=== PATIENT | female | born 1945 | race Caucasian/White ===

== ENCOUNTER 2016-12-06 13:19 | Inpatient (IN) | payer MEDICARE ==
[2016-12-06] MEDS ORDERED: SODIUM CHLORIDE 0.9% 1,000 ML IV STA (13:50)
[2016-12-06] MEDS ORDERED: SODIUM CHLORIDE 0.9% 500 ML IV STA (13:50)
--- NOTE | 2016-12-06 13:55 | ED ---
General Adult HPI - General Chief complaint: Nausea/Vomiting/Diarrhea Stated complaint: Weakness Time Seen by Provider: 12/06/16 13:35 Source: patient, RN notes reviewed Mode of arrival: wheelchair Limitations: no limitations - History of Present Illness Initial comments: 71-year-old female with history of hypertension and asthma presents for evaluation of generalized weakness. Patient states she is had progressively worsening weakness over the past 3 weeks. Patient also reports decreased appetite. Patient states she had one episode of nausea and vomiting several days ago. She has no nausea over the past several days. No chest pain no shortness of breath. Patient denies fever. Patient denies dysuria. She denies abdominal pain. States she has had a couple episodes of watery diarrhea. Denies any pain complaints. Patient does take care of her who has progressive dementia. She does not believe this is contributing to her poor appetite and weakness. - Related Data Home Medications Medication Instructions Recorded Confirmed Esomeprazole Magnesium [NexIUM] 40 mg PO DAILY 10/12/14 12/06/16 carBAMazepine [TEGretol] 200 mg PO DAILY 10/12/14 12/06/16 Aspirin EC [Ecotrin Low Dose] 81 mg PO DAILY 12/06/16 12/06/16 Diphenoxylate HCl/Atropine 1 tab PO Q8H PRN 12/06/16 12/06/16 [Lomotil 2.5-0.025 mg Tablet] Esomeprazole Magnesium [NexIUM] 40 mg PO DAILY 12/06/16 12/06/16 Losartan/Hydrochlorothiazide 1 tab PO DAILY 12/06/16 12/06/16 [Losartan-Hctz 100-25 mg Tab] Meclizine [Antivert] 25 mg PO Q8H PRN 12/06/16 12/06/16 Montelukast [Singulair] 10 mg PO DAILY 12/06/16 12/06/16 Oxybutynin Xl [Ditropan Xl] 5 mg PO DAILY 12/06/16 12/06/16 carBAMazepine [TEGretol] 400 mg PO HS 12/06/16 12/06/16 Allergies Allergy/AdvReac Type Severity Reaction Status Date / Time No Known Allergies Allergy Verified 12/06/16 14:23 Review of Systems ROS Statement: Those systems with pertinent positive or pertinent negative responses have been documented in the HPI. ROS Other: All systems not noted in ROS Statement are negative. Past Medical History Past Medical History: Asthma, GERD/Reflux, Osteoarthritis (OA) Additional Past Medical History / Comment(s): collitis rls incontinence History of Any Multi-Drug Resistant Organisms: None Reported Past Surgical History: Hysterectomy Past Psychological History: No Psychological Hx Reported Smoking Status: Former smoker Past Alcohol Use History: Rare Past Drug Use History: None Reported General Exam Limitations: no limitations General appearance: alert, in no apparent distress Head exam: Present: atraumatic, normocephalic Eye exam: Present: normal appearance, PERRL ENT exam: Present: mucous membranes moist Neck exam: Present: normal inspection. Absent: tenderness, meningismus Respiratory exam: Present: normal lung sounds bilaterally. Absent: respiratory distress, wheezes, rales Cardiovascular Exam: Present: regular rate, normal rhythm GI/Abdominal exam: Present: soft. Absent: distended, tenderness, guarding, rebound Extremities exam: Present: normal inspection, normal capillary refill. Absent: pedal edema Neurological exam: Present: alert, oriented X3. Absent: motor sensory deficit Psychiatric exam: Present: normal affect, depressed Skin exam: Present: warm, dry, intact, normal color. Absent: cyanosis, diaphoretic Course Vital Signs 12/06/16 12/06/16 12/06/16 13:23 14:43 15:34 Temperature 98.2 F Pulse Rate 71 74 71 Respiratory 20 12 16 Rate Blood Pressure 168/77 143/77 135/63 O2 Sat by Pulse 97 97 96 Oximetry 12/06/16 16:34 Temperature Pulse Rate 72 Respiratory 16 Rate Blood Pressure 159/70 O2 Sat by Pulse 96 Oximetry EKG Findings - EKG Comments: EKG Findings:: Normal sinus rhythm, ventricular rate 84, MO interval 176, QRS duration 78, QTC 458, T-wave inversion in the lateral precordium, this is unchanged compared to previous Medical Decision Making - Medical Decision Making 71-year-old female presenting with 2 weeks of decreased appetite and generalized weakness. Patient also had some mild nausea with one episode of vomiting. Laboratory studies reveal normal white blood cell count 5.7, hemoglobin 12.4 which is stable, potassium 3.0 which is replaced. AST and ALT are both elevated along with mild elevation in alkaline phosphatase. Ultrasound is obtained, this to show a 3 cm stone which is nonobstructing, no signs of acute cholecystitis. Patient receives IV hydration. Hepatitis panel will be obtained. Patient will be admitted for further evaluation and treatment. GI is placed on consult. Urinalysis is positive for 24 white blood cell count, urine cultures obtained, no treatment at this time as patient is asymptomatic. Diagnosis: Hepatitis, transaminitis, dehydration, hypokalemia - Lab Data Result diagrams: 12/06/16 14:09 12/06/16 14:09 Lab Results 12/06/16 12/06/16 12/06/16 Range/Units 14:09 14:09 14:09 WBC 9.7 (3.8-10.6) k/uL RBC 4.24 (3.80-5.40) m/uL Hgb 12.4 (11.4-16.0) gm/dL Hct 36.8 (34.0-46.0) % MCV 86.7 (80.0-100.0) fL MCH 29.3 (25.0-35.0) pg MCHC 33.8 (31.0-37.0) g/dL RDW 13.5 (11.5-15.5) % Plt Count 271 (150-450) k/uL Neutrophils % 85 % Lymphocytes % 9 % Monocytes % 5 % Eosinophils % 0 % Basophils % 0 % Neutrophils # 8.2 H (1.3-7.7) k/uL Lymphocytes # 0.8 L (1.0-4.8) k/uL Monocytes # 0.5 (0-1.0) k/uL Eosinophils # 0.0 (0-0.7) k/uL Basophils # 0.0 (0-0.2) k/uL PT (9.0-12.0) sec INR (<1.2) APTT (22.0-30.0) sec Sodium 133 L (137-145) mmol/L Potassium 3.0 L* (3.5-5.1) mmol/L Chloride 92 L (98-107) mmol/L Carbon Dioxide 23 (22-30) mmol/L Anion Gap 18 mmol/L BUN 41 H (7-17) mg/dL Creatinine 0.89 (0.52-1.04) mg/dL Est GFR (MDRD) Af Amer >60 (>60 ml/min/1.73 sqM) Est GFR (MDRD) Non-Af >60 (>60 ml/min/1.73 sqM) Glucose 104 H (74-99) mg/dL Plasma Lactic Acid Jose (0.7-2.0) mmol/L Calcium 9.1 (8.4-10.2) mg/dL Magnesium 2.5 H (1.6-2.3) mg/dL Total Bilirubin 0.7 (0.2-1.3) mg/dL AST 1113 H (14-36) U/L ALT 715 H (9-52) U/L Alkaline Phosphatase 160 H (38-126) U/L Total Creatine Kinase 70 (30-135) U/L CK-MB (CK-2) 1.8 (0.0-2.4) ng/mL CK-MB (CK-2) Rel Index 2.6 Troponin I <0.012 (0.000-0.034) ng/mL NT-Pro-B Natriuret Pep pg/mL Total Protein 7.1 (6.3-8.2) g/dL Albumin 3.8 (3.5-5.0) g/dL TSH 1.270 (0.465-4.680) mIU/L Urine Color Urine Appearance (Clear) Urine pH (5.0-8.0) Ur Specific [place] (1.001-1.035) Urine Protein (Negative) Urine Glucose (UA) (Negative) Urine Ketones (Negative) Urine Blood (Negative) Urine Nitrite (Negative) Urine Bilirubin (Negative) Urine Urobilinogen (<2.0) mg/dL Ur Leukocyte Esterase (Negative) Urine RBC (0-5) /hpf Urine WBC (0-5) /hpf Ur Squamous Epith Cells (0-4) /hpf Hyaline Casts (0-2) /lpf Urine Mucus (None) /hpf 12/06/16 12/06/16 12/06/16 Range/Units 14:09 14:09 14:09 WBC (3.8-10.6) k/uL RBC (3.80-5.40) m/uL Hgb (11.4-16.0) gm/dL Hct (34.0-46.0) % MCV (80.0-100.0) fL MCH (25.0-35.0) pg MCHC (31.0-37.0) g/dL RDW (11.5-15.5) % Plt Count (150-450) k/uL Neutrophils % % Lymphocytes % % Monocytes % % Eosinophils % % Basophils % % Neutrophils # (1.3-7.7) k/uL Lymphocytes # (1.0-4.8) k/uL Monocytes # (0-1.0) k/uL Eosinophils # (0-0.7) k/uL Basophils # (0-0.2) k/uL PT 11.8 (9.0-12.0) sec INR 1.2 H (<1.2) APTT 25.0 (22.0-30.0) sec Sodium (137-145) mmol/L Potassium (3.5-5.1) mmol/L Chloride (98-107) mmol/L Carbon Dioxide (22-30) mmol/L Anion Gap mmol/L BUN (7-17) mg/dL Creatinine (0.52-1.04) mg/dL Est GFR (MDRD) Af Amer (>60 ml/min/1.73 sqM) Est GFR (MDRD) Non-Af (>60 ml/min/1.73 sqM) Glucose (74-99) mg/dL Plasma Lactic Acid Jose 1.3 (0.7-2.0) mmol/L Calcium (8.4-10.2) mg/dL Magnesium (1.6-2.3) mg/dL Total Bilirubin (0.2-1.3) mg/dL AST (14-36) U/L ALT (9-52) U/L Alkaline Phosphatase (38-126) U/L Total Creatine Kinase (30-135) U/L CK-MB (CK-2) (0.0-2.4) ng/mL CK-MB (CK-2) Rel Index Troponin I (0.000-0.034) ng/mL NT-Pro-B Natriuret Pep 1180 pg/mL Total Protein (6.3-8.2) g/dL Albumin (3.5-5.0) g/dL TSH (0.465-4.680) mIU/L Urine Color Urine Appearance (Clear) Urine pH (5.0-8.0) Ur Specific [place] (1.001-1.035) Urine Protein (Negative) Urine Glucose (UA) (Negative) Urine Ketones (Negative) Urine Blood (Negative) Urine Nitrite (Negative) Urine Bilirubin (Negative) Urine Urobilinogen (<2.0) mg/dL Ur Leukocyte Esterase (Negative) Urine RBC (0-5) /hpf Urine WBC (0-5) /hpf Ur Squamous Epith Cells (0-4) /hpf Hyaline Casts (0-2) /lpf Urine Mucus (None) /hpf 12/06/16 Range/Units 14:20 WBC (3.8-10.6) k/uL RBC (3.80-5.40) m/uL Hgb (11.4-16.0) gm/dL Hct (34.0-46.0) % MCV (80.0-100.0) fL MCH (25.0-35.0) pg MCHC (31.0-37.0) g/dL RDW (11.5-15.5) % Plt Count (150-450) k/uL Neutrophils % % Lymphocytes % % Monocytes % % Eosinophils % % Basophils % % Neutrophils # (1.3-7.7) k/uL Lymphocytes # (1.0-4.8) k/uL Monocytes # (0-1.0) k/uL Eosinophils # (0-0.7) k/uL Basophils # (0-0.2) k/uL PT (9.0-12.0) sec INR (<1.2) APTT (22.0-30.0) sec Sodium (137-145) mmol/L Potassium (3.5-5.1) mmol/L Chloride (98-107) mmol/L Carbon Dioxide (22-30) mmol/L Anion Gap mmol/L BUN (7-17) mg/dL Creatinine (0.52-1.04) mg/dL Est GFR (MDRD) Af Amer (>60 ml/min/1.73 sqM) Est GFR (MDRD) Non-Af (>60 ml/min/1.73 sqM) Glucose (74-99) mg/dL Plasma Lactic Acid Jose (0.7-2.0) mmol/L Calcium (8.4-10.2) mg/dL Magnesium (1.6-2.3) mg/dL Total Bilirubin (0.2-1.3) mg/dL AST (14-36) U/L ALT (9-52) U/L Alkaline Phosphatase (38-126) U/L Total Creatine Kinase (30-135) U/L CK-MB (CK-2) (0.0-2.4) ng/mL CK-MB (CK-2) Rel Index Troponin I (0.000-0.034) ng/mL NT-Pro-B Natriuret Pep pg/mL Total Protein (6.3-8.2) g/dL Albumin (3.5-5.0) g/dL TSH (0.465-4.680) mIU/L Urine Color Yellow Urine Appearance Clear (Clear) Urine pH 6.0 (5.0-8.0) Ur Specific [place] 1.016 (1.001-1.035) Urine Protein 1+ H (Negative) Urine Glucose (UA) Negative (Negative) Urine Ketones 2+ H (Negative) Urine Blood Trace H (Negative) Urine Nitrite Negative (Negative) Urine Bilirubin Negative (Negative) Urine Urobilinogen <2.0 (<2.0) mg/dL Ur Leukocyte Esterase Moderate H (Negative) Urine RBC 1 (0-5) /hpf Urine WBC 24 H (0-5) /hpf Ur Squamous Epith Cells <1 (0-4) /hpf Hyaline Casts 7 H (0-2) /lpf Urine Mucus Rare H (None) /hpf Disposition Clinical Impression: Hepatitis, Hypokalemia, Dehydration Disposition: ADMITTED IP TO THIS [facility] Condition: Good Decision to Admit Reason: Admit from [facility] Decision Date: 12/06/16 Decision Time: 16:05
[2016-12-06 14:27] LABS: Basophils % (A) 0 %; CH 30.6; CHCM 35.4; Eosinophils % (A) 0 %; HCT 36.8 % (34.0-46.0); HDW 2.62; HGB 12.4 gm/dL (11.4-16.0); Luc # (Auto) 0.17; Luc % (Auto) 2; Lymphocytes # (A) 0.8 k/uL (1.0-4.8); Lymphocytes % (A) 9 %; MCH 29.3 pg (25.0-35.0); MCHC 33.8 g/dL (31.0-37.0); MCV 86.7 fL (80.0-100.0); Mean Platelet Volume 7.9; Monocytes # (A) 0.5 k/uL (0-1.0); Monocytes % (A) 5 %; Neutrophils # (A) 8.2 k/uL (1.3-7.7); Neutrophils % (A) 85 %; RBC 4.24 m/uL (3.80-5.40); RDW 13.5 % (11.5-15.5); WBC 9.7 k/uL (3.8-10.6); WBC (Perox) 9.73
[2016-12-06 14:35] LABS: INR 1.2 (<1.2); Prothrombin Time 11.8 sec (9.0-12.0)
[2016-12-06 14:39] LABS: ALT 715 U/L (9-52); Alkaline Phosphatase 160 U/L (38-126); Anion Gap 18 mmol/L; Blood Urea Nitrogen 41 mg/dL (7-17); Calcium 9.1 mg/dL (8.4-10.2); Carbon Dioxide 23 mmol/L (22-30); Chloride 92 mmol/L (98-107); Glucose 104 mg/dL (74-99); Magnesium 2.5 mg/dL (1.6-2.3); Non-African American GFR(MDRD) >60 (>60 ml/min/1.73 sqM); Sodium 133 mmol/L (137-145); Total Bilirubin 0.7 mg/dL (0.2-1.3); Total Protein 7.1 g/dL (6.3-8.2)
[2016-12-06 14:48] LABS: Appearance,Urine Clear (Clear); Bilirubin,Urine Negative (Negative); Glucose,Urine (UA) Negative (Negative); Ketones,Urine 2+ (Negative); Leukocyte Esterase,Urine Moderate (Negative); Mucus,Urine Rare /hpf; Nitrite,Urine Negative (Negative); Particle Count 7427; Protein,Urine 1+ (Negative); RBC,Urine 1 /hpf (0-5); Specific Gravity,Urine 1.016 (1.001-1.035); Squamous Epithelial Cell,Urine <1 /hpf (0-4); UA Billing (MACRO vs. MICRO) MICRO; Urobilinogen,Urine <2.0 mg/dL (<2.0); WBC,Urine 24 /hpf (0-5)
[2016-12-06 14:48] LABS: Creatine Kinase 70 U/L (30-135)
[2016-12-06 15:01] LABS: Creatine Kinase MB 1.8 ng/mL (0.0-2.4); Troponin I <0.012 ng/mL (0.000-0.034)
--- NOTE | 2016-12-06 15:12 | XR ---
EXAMINATION TYPE: XR chest 2V DATE OF EXAM: 12/06/2016 COMPARISON: 10/12/2014 HISTORY: Weakness with history of asthma TECHNIQUE: Frontal and lateral views of the chest are obtained. FINDINGS: There is no focal air space opacity, pleural effusion, or pneumothorax seen. The cardiac silhouette size is within normal limits. The osseous structures are intact. Minimal degenerative ch anges of the thoracic spine are noted. IMPRESSION: No acute cardiopulmonary process.
[2016-12-06 15:20] LABS: AST 1113 U/L (14-36)
[2016-12-06] MEDS: POTASSIUM CHLORIDE 10 MEQ, LIDOCAINE 2% INJ 10 MG in SODIUM CHLORIDE 0.9% 100 ML IVPB SCH ×4 (16:29→22:16)
--- NOTE | 2016-12-06 16:39 | US ---
EXAMINATION TYPE: US abdomen limited DATE OF EXAM: 12/06/2016 COMPARISON: 10/27/2014 CLINICAL HISTORY: Pain. EXAM MEASUREMENTS: Liver Length: 10.5 cm Gallbladder Wall: 0.3 cm CBD: 0.5 cm Right Kidney: 12.5 x 4.5 x 5.5 cm Technically difficult study due to poor patient cooperation Pancreas: Tail obscured by overlying bowel gas Liver: wnl Gallbladder: large stone within gallbladder Evidence for sonographic Suresh's sign: no CBD: wnl Right Kidney: No hydronephrosis or masses seen IMPRESSION: There is shadowing in the gallbladder consistent with a large 3 cm gallstone. No dilated ducts. This appears unchanged compared to old ultrasound exam of 10/27/2014.
[2016-12-06] MEDS ORDERED: ONDANSETRON 4 MG/2 ML VIAL IVP PRN (16:50)
[2016-12-06] MEDS ORDERED: NALOXONE 0.4 MG/ML 1 ML VIAL IV PRN (16:50)
[2016-12-06] MEDS ORDERED: MECLIZINE 25 MG TAB PO PRN (21:35)
[2016-12-07] MEDS: LOSARTAN-HCTZ 50-12.5 MG 1 EACH TAB PO SCH (08:06)
[2016-12-07] MEDS: PANTOPRAZOLE 40 MG TABLET PO SCH (08:07)
[2016-12-07] MEDS: OXYBUTYNIN XL 5 MG TAB.ER.24 PO SCH (08:07)
[2016-12-07] MEDS: ASPIRIN 81 MG PO SCH (08:07)
[2016-12-07] MEDS: MONTELUKAST 10 MG TAB PO SCH (08:07)
[2016-12-07 08:15] LABS: Basophils % (A) 0 %; CH 29.1; CHCM 33.7; Eosinophils % (A) 1 %; HCT 33.9 % (34.0-46.0); HDW 2.68; HGB 11.2 gm/dL (11.4-16.0); Luc # (Auto) 0.13; Luc % (Auto) 2; Lymphocytes # (A) 0.9 k/uL (1.0-4.8); Lymphocytes % (A) 13 %; MCH 28.5 pg (25.0-35.0); MCHC 32.9 g/dL (31.0-37.0); MCV 86.8 fL (80.0-100.0); Monocytes # (A) 0.4 k/uL (0-1.0); Monocytes % (A) 5 %; Neutrophils # (A) 5.9 k/uL (1.3-7.7); Neutrophils % (A) 80 %; RBC 3.91 m/uL (3.80-5.40); WBC 7.4 k/uL (3.8-10.6)
[2016-12-07 08:29] LABS: Anion Gap 12 mmol/L; Blood Urea Nitrogen 22 mg/dL (7-17); Calcium 8.5 mg/dL (8.4-10.2); Carbon Dioxide 23 mmol/L (22-30); Chloride 101 mmol/L (98-107); Glucose 90 mg/dL (74-99); Non-African American GFR(MDRD) >60 (>60 ml/min/1.73 sqM); Potassium 3.4 mmol/L (3.5-5.1); Sodium 136 mmol/L (137-145); Total Bilirubin 0.5 mg/dL (0.2-1.3); Total Protein 5.7 g/dL (6.3-8.2)
[2016-12-07 08:34] LABS: AST 491 U/L (14-36); Alkaline Phosphatase 113 U/L (38-126)
[2016-12-07 08:36] LABS: ALT 471 U/L (9-52)
--- NOTE | 2016-12-07 12:19 | P.HPIM ---
History of Present Illness Chief Complaint: Weakness and lack of appetite This is a 71-year-old female who presented to the hospital with weakness and lack of appetite. Patient said that for the past week she has been very busy taking care of her demented . Patient said that she was very overwhelmed and she does not have any help at home. She said that she was disimpacted and was unable to take care of her own self. She noted decreased appetite for the past few days. She denies being depressed or sad. She said that she did not eat that much for the past several days. She decided to come to the emergency room for further evaluation. She was noted to be significantly dehydrated and was noted to have evidence of acute hepatitis. The exact etiology was unclear. Patient denies any abdominal pain. She is currently admitted to the hospital for IV fluid hydration and further evaluation. Gastroenterology consulted. Review of Systems Review of system: 14 points review of systems were obtained and were negative except to what were mentioned in the HPI. Past Medical History Past Medical History: Asthma, GERD/Reflux, Osteoarthritis (OA) Additional Past Medical History / Comment(s): collitis rls incontinence History of Any Multi-Drug Resistant Organisms: None Reported Past Surgical History: Hysterectomy Past Psychological History: No Psychological Hx Reported Smoking Status: Former smoker Past Alcohol Use History: Rare Past Drug Use History: None Reported Medications and Allergies Home Medications Medication Instructions Recorded Confirmed Type Esomeprazole Magnesium [NexIUM] 40 mg PO DAILY 10/12/14 12/06/16 History carBAMazepine [TEGretol] 200 mg PO DAILY 10/12/14 12/06/16 History Aspirin EC [Ecotrin Low Dose] 81 mg PO DAILY 12/06/16 12/06/16 History Diphenoxylate HCl/Atropine 1 tab PO Q8H PRN 12/06/16 12/06/16 History [Lomotil 2.5-0.025 mg Tablet] Esomeprazole Magnesium [NexIUM] 40 mg PO DAILY 12/06/16 12/06/16 History Losartan/Hydrochlorothiazide 1 tab PO DAILY 12/06/16 12/06/16 History [Losartan-Hctz 100-25 mg Tab] Meclizine [Antivert] 25 mg PO Q8H PRN 12/06/16 12/06/16 History Montelukast [Singulair] 10 mg PO DAILY 12/06/16 12/06/16 History Oxybutynin Xl [Ditropan Xl] 5 mg PO DAILY 12/06/16 12/06/16 History carBAMazepine [TEGretol] 400 mg PO HS 12/06/16 12/06/16 History Allergies Allergy/AdvReac Type Severity Reaction Status Date / Time No Known Allergies Allergy Verified 12/06/16 14:23 Physical Exam Vitals: Vital Signs Temp Pulse Pulse Resp BP BP Pulse Ox 12/07/16 11:51 97 12/07/16 08:00 68 16 12/07/16 07:00 97.2 F L 68 16 116/67 97 12/06/16 23:00 97.8 F 78 14 135/60 98 12/06/16 17:41 97.2 F L 79 20 146/81 98 12/06/16 17:34 98.2 F 72 16 159/70 96 12/06/16 17:24 72 16 159/70 96 12/06/16 16:34 72 16 159/70 96 12/06/16 15:34 71 16 135/63 96 12/06/16 14:43 74 12 143/77 97 12/06/16 13:23 98.2 F 71 20 168/77 97 Intake and Output 12/06/16 12/07/16 12/07/16 22:59 06:59 14:59 Other: Voiding Method Toilet Toilet # Voids 2 3 # Bowel Movements 1 General: The patient is awake and alert, in no distress Eye: there is normal conjunctiva bilaterally. Neck: The neck is supple, there is no JVD. Cardiovascular: Normal S1-S2, no S3-S4, no murmurs. Respiratory: Lungs clear to auscultation bilaterally Gastrointestinal: Abdomen is soft, nontender Musculoskeletal: There is no pedal edema. Neurological:. Speech is normal. Skin: Skin is warm and dry Results CBC & Chem 7: 12/07/16 07:42 12/07/16 07:42 Labs: Abnormal Lab Results - Last 24 Hours (Table) 12/06/16 12/06/16 12/06/16 Range/Units 14:09 14:09 14:09 Hgb (11.4-16.0) gm/dL Hct (34.0-46.0) % Neutrophils # 8.2 H (1.3-7.7) k/uL Lymphocytes # 0.8 L (1.0-4.8) k/uL INR 1.2 H (<1.2) Sodium 133 L (137-145) mmol/L Potassium 3.0 L* (3.5-5.1) mmol/L Chloride 92 L (98-107) mmol/L BUN 41 H (7-17) mg/dL Glucose 104 H (74-99) mg/dL Magnesium 2.5 H (1.6-2.3) mg/dL AST 1113 H (14-36) U/L ALT 715 H (9-52) U/L Alkaline Phosphatase 160 H (38-126) U/L Total Protein (6.3-8.2) g/dL Albumin (3.5-5.0) g/dL Urine Protein (Negative) Urine Ketones (Negative) Urine Blood (Negative) Ur Leukocyte Esterase (Negative) Urine WBC (0-5) /hpf Hyaline Casts (0-2) /lpf Urine Mucus (None) /hpf 12/06/16 12/07/16 12/07/16 Range/Units 14:20 07:42 07:42 Hgb 11.2 L (11.4-16.0) gm/dL Hct 33.9 L (34.0-46.0) % Neutrophils # (1.3-7.7) k/uL Lymphocytes # 0.9 L (1.0-4.8) k/uL INR (<1.2) Sodium 136 L (137-145) mmol/L Potassium 3.4 L (3.5-5.1) mmol/L Chloride (98-107) mmol/L BUN 22 H (7-17) mg/dL Glucose (74-99) mg/dL Magnesium (1.6-2.3) mg/dL AST 491 H (14-36) U/L ALT 471 H (9-52) U/L Alkaline Phosphatase (38-126) U/L Total Protein 5.7 L (6.3-8.2) g/dL Albumin 3.0 L (3.5-5.0) g/dL Urine Protein 1+ H (Negative) Urine Ketones 2+ H (Negative) Urine Blood Trace H (Negative) Ur Leukocyte Esterase Moderate H (Negative) Urine WBC 24 H (0-5) /hpf Hyaline Casts 7 H (0-2) /lpf Urine Mucus Rare H (None) /hpf Microbiology - Last 24 Hours (Table) 12/06/16 14:20 Urine Culture - Preliminary Urine,Voided Thrombosis Risk Factor Assmnt - Choose All That Apply Each Risk Factor Represents 2 Points: Age 61-74 years Thrombosis Risk Factor Assessment Total Risk Factor Score: 2 Thrombosis Risk Factor Assessment Level: Low Risk Assessment and Plan Plan: 1. Acute hepatitis, exact etiology unclear. Hepatitis panel pending. Liver function tests improving. Gastroenterology consulted. Ultrasound of the abdomen showed a 3 cm gallstone there is a symptomatic. I will consult general surgery for an opinion. Tegretol level was subtherapeutic and no toxicity suspected. 2. History of seizure disorder on Tegretol 3. Dehydration with intravascular depletion, continue IV fluid hydration. 4. Uncomplicated urinary tract infection on IV ceftriaxone awaiting urine culture 5. Essential hypertension: Blood pressure well controlled
[2016-12-07 13:26] VITALS: BMI 25.5
--- NOTE | 2016-12-07 13:36 | CONS ---
CONSULTATION DATE OF DICTATION: 12/07/2016 REASON FOR CONSULTATION: Elevated LFTs. HISTORY OF PRESENT ILLNESS: The patient is a 71-year-old pleasant white female who came into the emergency room with generalized weakness, not able to eat; progressive weakness for the last few weeks' duration. The patient says that she has been caring for her , who has severe Alzheimer's, and has become extremely tired doing this job. However, in the last few weeks she had a somewhat decreased appetite, to an extent that she stopped taking all her medication and developed progressive weakness. She had 1 episode of nausea and vomiting. She denies any abdominal pain, reports no rectal bleeding or melena. She felt extremely weak. She told her daughter to take her to the emergency room and hence came here yesterday. This morning she states she is feeling better. She once again denies any abdominal pain. The reason we are consulted is because of acute elevation of serum transaminases. The patient denies any history of chronic liver disease, denies taking any new medications recently; in fact, she stopped all her medications about 3 weeks ago. PAST MEDICAL HISTORY: 1. Hypertension. 2. Asthma. 3. Osteoarthritis. 4. GERD. PAST SURGICAL HISTORY: Hysterectomy. MEDICATIONS AT HOME: Medications at home include: 1. Tegretol. 2. Singulair. 3. Antivert. 4. Losartan. 5. Nexium. 6. Aspirin. ALLERGIES: NONE. SOCIAL HISTORY: No smoking. No alcohol use. FAMILY HISTORY: Unremarkable. REVIEW OF SYSTEMS: CARDIOPULMONARY: No chest pain, shortness of breath. GENITOURINARY: No dysuria, hematuria. MUSCULOSKELETAL: Unremarkable. SKIN: Unremarkable. ENDOCRINE: Unremarkable. PSYCHIATRY: Unremarkable. NEUROLOGY: Unremarkable. ENT/VISION: Unremarkable. CONSTITUTIONAL: No recent weight loss. No fever, chills, night sweats. PHYSICAL EXAMINATION: Blood pressure 146/81, pulse rate 79, temperature 97.2. HEENT EXAMINATION: Unremarkable. Conjunctivae are pink, sclerae anicteric. Oral cavity with no lesions. NECK: No JVD or lymph node enlargement. Chest was clear to auscultation. HEART: Regular rate and rhythm. ABDOMEN: Soft. Bowel sounds are positive. Non-tender, non-distended. EXTREMITIES: No pedal edema. SKIN: No rashes. NEURO: Alert and oriented x3. No focal deficits. LABS: Labs at the time of admission to the hospital: WBC 9.7, hemoglobin 12.4. AST was 1113. ALT was 715. Total bilirubin 0.7. Alkaline phosphatase 160. Today the AST and ALT have significantly improved to 491 and 471, respectively. Total bilirubin and alkaline phosphatase are within normal limits. Lipase is normal. IMAGING: Ultrasound of the abdomen done yesterday in the emergency room did show evidence of gallstones but no biliary ductal dilatation. IMPRESSION: This is a lady who presents to the hospital with progressive weakness, fatigue, not feeling well for the last 3 weeks' duration and stopped taking all her medications around the same time, admitted to the hospital with dehydration; however, she was noted to have elevated serum transaminases in the range of 1000s yesterday but has significantly improved today. Ultrasound did show evidence of gallstones but no biliary ductal dilation. At this time, since the patient does not have any abdominal symptoms, it is unlikely that we are dealing with an acute cholecystitis or biliary pathology. The possibility of acute hepatitis from other etiologies, especially infection, needs to be considered, given her overall decreased intake and poor appetite. RECOMMENDATIONS: 1. I will obtain hepatitis viral serologies for A, B and C as well as . 2. Repeat serum transaminases tomorrow morning. 3. No indication for any ERCP or other endoscopic investigations at the present time. Will follow her closely during her hospital stay. Thank you for this consultation. AFSHIN / CHANDAN: [id number] /
[2016-12-07] MEDS: SODIUM CHLORIDE 0.9% 1,000 ML IV SCH (14:47)
[2016-12-07] MEDS: MELATONIN 3 MG TABLET PO SCH (21:56)
[2016-12-07] MEDS: carBAMazepine 200 MG TAB PO SCH (21:56)
[2016-12-08] MEDS: SODIUM CHLORIDE 0.9% 1,000 ML IV SCH ×3 (05:07→21:13)
[2016-12-08 08:14] LABS: ALT 287 U/L (9-52); AST 161 U/L (14-36); Alkaline Phosphatase 92 U/L (38-126); Anion Gap 11 mmol/L; Blood Urea Nitrogen 11 mg/dL (7-17); Calcium 8.2 mg/dL (8.4-10.2); Carbon Dioxide 21 mmol/L (22-30); Chloride 103 mmol/L (98-107); Glucose 82 mg/dL (74-99); Non-African American GFR(MDRD) >60 (>60 ml/min/1.73 sqM); Potassium 3.1 mmol/L (3.5-5.1); Sodium 135 mmol/L (137-145); Total Bilirubin 0.5 mg/dL (0.2-1.3); Total Protein 5.2 g/dL (6.3-8.2)
[2016-12-08] MEDS: PANTOPRAZOLE 40 MG TABLET PO SCH (09:01)
--- NOTE | 2016-12-08 10:55 | PN ---
PROGRESS NOTE DATE OF SERVICE: 12/08/16 Patient is a 71-year-old pleasant white female admitted to the hospital with acute weakness, not eating well for the last three weeks duration. When she was admitted to the hospital she was noted to have acute elevation of serum transaminases and hence we are consulted on her. The patient denies any abdominal pain, nausea, vomiting. No fever or chills or night sweats. She denies any new medications that she has taken the last 2 months. In fact she states that she stopped taking all of her medications about 3 weeks ago as she was not feeling well. This morning appetite has been good. Tolerating diet well. PHYSICAL EXAMINATION: Appears comfortable. No apparent distress. VITAL SIGNS: Stable. Blood pressure 130/63, heart rate 76, temperature 98. HEENT examination unremarkable. Conjunctivae pink. Sclerae anicteric. Oral cavity no lesions. Neck: No jugular venous distention or lymph node enlargement. Chest: Clear to auscultation. Heart regular rate and rhythm. ABDOMEN: Soft. Bowel sounds are positive. No organomegaly. EXTREMITIES: No pedal edema. Skin no rashes. NEUROLOGIC: Alert and oriented x3. No focal deficits. LABS: From this morning, AST down to 161, ALT is down to 287, T. bili and alkaline phosphatase are within normal limits. CBC was within normal limits. Hepatitis, serology for A, B, and C were requested and still pending at time of this dictation. IMPRESSION: This lady presents with acute weakness, fatigue, and not feeling well for the last 3 weeks duration, stop taking all her medications. At the time of admission the hospital for dehydration was noted to have elevated serum transaminases with ALT and AST in the range of 1000. Over the last 2 days that has significantly improved and this morning ALT and AST are 161 and 287 respectively. Most likely, acute hepatitis, possibly could be medication related or infectious etiology. In any event, the LFTs are gradually improving. RECOMMENDATION: 1. Await the rest of the acute viral serologies for hepatitis A, B, and C. 2. Continue with current management plan. 3. No need for further investigations since her serum transaminases are gradually improving. 4. At this time, we will continue to follow her closely during her hospital stay. Thank you for this consultation. MMODL / IJN: [id number] /
--- NOTE | 2016-12-08 10:57 | P.GSCN ---
History of Present Illness Consult date: 12/08/16 Reason for Consult: Abdominal pain History of present illness: This is a 71-year-old female who was admitted to the hospital complaints of nausea and anorexia and some mild abdominal pain. Patient was worked up and found evidence of a large 3 cm gallstone. Patient denies any significant pain in the right upper quadrant. The patient was found have elevated liver function tests on admission. These have improved during her admission. Past Medical History Past Medical History: Asthma, GERD/Reflux, Osteoarthritis (OA) Additional Past Medical History / Comment(s): collitis rls incontinence History of Any Multi-Drug Resistant Organisms: None Reported Past Surgical History: Hysterectomy Past Psychological History: No Psychological Hx Reported Smoking Status: Former smoker Past Alcohol Use History: Rare Past Drug Use History: None Reported Medications and Allergies Home Medications Medication Instructions Recorded Confirmed Type Esomeprazole Magnesium [NexIUM] 40 mg PO DAILY 10/12/14 12/06/16 History carBAMazepine [TEGretol] 200 mg PO DAILY 10/12/14 12/06/16 History Aspirin EC [Ecotrin Low Dose] 81 mg PO DAILY 12/06/16 12/06/16 History Diphenoxylate HCl/Atropine 1 tab PO Q8H PRN 12/06/16 12/06/16 History [Lomotil 2.5-0.025 mg Tablet] Esomeprazole Magnesium [NexIUM] 40 mg PO DAILY 12/06/16 12/06/16 History Losartan/Hydrochlorothiazide 1 tab PO DAILY 12/06/16 12/06/16 History [Losartan-Hctz 100-25 mg Tab] Meclizine [Antivert] 25 mg PO Q8H PRN 12/06/16 12/06/16 History Montelukast [Singulair] 10 mg PO DAILY 12/06/16 12/06/16 History Oxybutynin Xl [Ditropan Xl] 5 mg PO DAILY 12/06/16 12/06/16 History carBAMazepine [TEGretol] 400 mg PO HS 12/06/16 12/06/16 History Allergies Allergy/AdvReac Type Severity Reaction Status Date / Time No Known Allergies Allergy Verified 12/06/16 14:23 Surgical - Exam Vital Signs Temp Pulse Resp BP Pulse Ox 98.2 F 71 20 168/77 97 12/06/16 13:23 12/06/16 13:23 12/06/16 13:23 12/06/16 13:23 12/06/16 13:23 - General well developed, no distress - Eyes PERRL - ENT normal pinna - Neck no masses - Respiratory normal expansion - Cardiovascular Rhythm: regular - Abdomen Abdomen soft. There is minimal right quadrant tenderness. There is no rebound or guarding. Results - Labs 12/07/16 07:42 12/08/16 06:51 Abnormal Lab Results - Last 24 Hours (Table) 12/08/16 Range/Units 06:51 Sodium 135 L (137-145) mmol/L Potassium 3.1 L (3.5-5.1) mmol/L Carbon Dioxide 21 L (22-30) mmol/L Calcium 8.2 L (8.4-10.2) mg/dL AST 161 H (14-36) U/L ALT 287 H (9-52) U/L Total Protein 5.2 L (6.3-8.2) g/dL Albumin 2.6 L (3.5-5.0) g/dL Microbiology - Last 24 Hours (Table) 12/06/16 14:20 Urine Culture - Final Urine,Voided Diabetes panel 12/08/16 Range/Units 06:51 Sodium 135 L (137-145) mmol/L Potassium 3.1 L (3.5-5.1) mmol/L Chloride 103 (98-107) mmol/L Carbon Dioxide 21 L (22-30) mmol/L BUN 11 (7-17) mg/dL Creatinine 0.57 (0.52-1.04) mg/dL Glucose 82 (74-99) mg/dL Calcium 8.2 L (8.4-10.2) mg/dL AST 161 H (14-36) U/L ALT 287 H (9-52) U/L Alkaline Phosphatase 92 (38-126) U/L Total Protein 5.2 L (6.3-8.2) g/dL Albumin 2.6 L (3.5-5.0) g/dL Calcium panel 12/08/16 Range/Units 06:51 Calcium 8.2 L (8.4-10.2) mg/dL Albumin 2.6 L (3.5-5.0) g/dL Pituitary panel 12/08/16 Range/Units 06:51 Sodium 135 L (137-145) mmol/L Potassium 3.1 L (3.5-5.1) mmol/L Chloride 103 (98-107) mmol/L Carbon Dioxide 21 L (22-30) mmol/L BUN 11 (7-17) mg/dL Creatinine 0.57 (0.52-1.04) mg/dL Glucose 82 (74-99) mg/dL Calcium 8.2 L (8.4-10.2) mg/dL Adrenal panel 12/08/16 Range/Units 06:51 Sodium 135 L (137-145) mmol/L Potassium 3.1 L (3.5-5.1) mmol/L Chloride 103 (98-107) mmol/L Carbon Dioxide 21 L (22-30) mmol/L BUN 11 (7-17) mg/dL Creatinine 0.57 (0.52-1.04) mg/dL Glucose 82 (74-99) mg/dL Calcium 8.2 L (8.4-10.2) mg/dL Total Bilirubin 0.5 (0.2-1.3) mg/dL AST 161 H (14-36) U/L ALT 287 H (9-52) U/L Alkaline Phosphatase 92 (38-126) U/L Total Protein 5.2 L (6.3-8.2) g/dL Albumin 2.6 L (3.5-5.0) g/dL - Imaging US - abdomen: report reviewed (Large 3 cm gallstone) Assessment and Plan Plan: 370 gallstone Elevated liver function test. The patient's LFTs have improved. She most likely has passed a small gallstone. The patient will undergo laparoscopic cholecystectomy on Friday.
--- NOTE | 2016-12-08 11:50 | P.PN ---
Subjective Patient is doing a lot better today. Her liver function test is improved. She was seen and evaluated by GI and general surgery. Objective - Vital Signs Vital signs: Vital Signs Temp 97.9 F 12/08/16 07:00 Pulse 71 12/08/16 07:00 Resp 16 12/08/16 07:00 BP 141/66 12/08/16 07:00 Pulse Ox 95 12/08/16 07:00 Intake & Output 12/07/16 12/08/16 12/08/16 18:59 06:59 18:59 Intake Total 120 Balance 120 Weight 59.421 kg Intake: Oral 120 Other: Voiding Method Toilet Toilet # Voids 3 1 - Exam General: The patient is awake and alert, in no distress Eye: there is normal conjunctiva bilaterally. Neck: The neck is supple, there is no JVD. Cardiovascular: Normal S1-S2, no S3-S4, no murmurs. Respiratory: Lungs clear to auscultation bilaterally Gastrointestinal: Abdomen is soft, nontender Musculoskeletal: There is no pedal edema. Neurological:. Speech is normal. Skin: Skin is warm and dry - Labs CBC & Chem 7: 12/07/16 07:42 12/08/16 06:51 Labs: Abnormal Lab Results - Last 24 Hours (Table) 12/08/16 Range/Units 06:51 Sodium 135 L (137-145) mmol/L Potassium 3.1 L (3.5-5.1) mmol/L Carbon Dioxide 21 L (22-30) mmol/L Calcium 8.2 L (8.4-10.2) mg/dL AST 161 H (14-36) U/L ALT 287 H (9-52) U/L Total Protein 5.2 L (6.3-8.2) g/dL Albumin 2.6 L (3.5-5.0) g/dL Microbiology - Last 24 Hours (Table) 12/06/16 14:20 Urine Culture - Final Urine,Voided Assessment and Plan Plan: 1. Acute hepatitis, exact etiology unclear. Hepatitis panel pending. Liver function tests improving. Gastroenterology and general surgery consulted. Ultrasound of the abdomen showed a 3 cm gallstone there is a symptomatic. Plan for possible laparoscopic cholecystectomy on Friday. Tegretol level was subtherapeutic and no toxicity suspected. 2. History of seizure disorder on Tegretol 3. Dehydration with intravascular depletion, continue IV fluid hydration. 4. Uncomplicated urinary tract infection on IV ceftriaxone awaiting urine culture 5. Essential hypertension: Blood pressure well controlled
[2016-12-08] MEDS ORDERED: Potassium Replacement Protocol 1 EACH MISC MISCELLANE PRN (13:37)
[2016-12-08] MEDS: IBUPROFEN 600 MG TAB PO PRN ×2 (13:37→21:12)
[2016-12-08] MEDS: POTASSIUM CHLORIDE 10 MEQ, LIDOCAINE 2% INJ 10 MG in SODIUM CHLORIDE 0.9% 100 ML IVPB SCH ×3 (15:04→23:15)
[2016-12-08] MEDS: MONTELUKAST 10 MG TAB PO SCH (16:24)
[2016-12-08] MEDS: ASPIRIN 81 MG PO SCH (16:24)
[2016-12-08] MEDS: carBAMazepine 200 MG TAB PO SCH ×2 (16:24→20:18)
[2016-12-08] MEDS: LOSARTAN-HCTZ 50-12.5 MG 1 EACH TAB PO SCH (16:24)
[2016-12-08] MEDS: OXYBUTYNIN XL 5 MG TAB.ER.24 PO SCH (16:24)
[2016-12-08] MEDS: MELATONIN 3 MG TABLET PO SCH (20:18)
[2016-12-09 00:13] VITALS: PULSE 68
[2016-12-09] MEDS: POTASSIUM CHLORIDE 10 MEQ, LIDOCAINE 2% INJ 10 MG in SODIUM CHLORIDE 0.9% 100 ML IVPB SCH (00:34)
[2016-12-09] MEDS: SODIUM CHLORIDE 0.9% 1,000 ML IV SCH (06:10)
[2016-12-09 07:40] VITALS: BP 153/85; RESP 18; TEMP 96.9
[2016-12-09] MEDS: carBAMazepine 200 MG TAB PO SCH (08:25)
[2016-12-09] MEDS: ASPIRIN 81 MG PO SCH (08:25)
[2016-12-09] MEDS: OXYBUTYNIN XL 5 MG TAB.ER.24 PO SCH (08:25)
[2016-12-09] MEDS: LOSARTAN-HCTZ 50-12.5 MG 1 EACH TAB PO SCH (08:25)
[2016-12-09] MEDS: MONTELUKAST 10 MG TAB PO SCH (08:25)
[2016-12-09] MEDS: PANTOPRAZOLE 40 MG TABLET PO SCH (08:25)
--- NOTE | 2016-12-09 11:49 | P.DS ---
Providers Date of admission: 12/06/16 16:52 Expected date of discharge: 12/09/16 Attending physician: Mono Stanford Consults: 12/06/16 16:51 Consult Physician Urgent Consulting Provider: Mo Huerta Consult Reason/Comments: Transaminitis Do you want consulting provider notified?: Yes, Notify in am 12/07/16 12:20 Consult Physician Routine Consulting Provider: Blaine Seay Consult Reason/Comments: Gallstone Do you want consulting provider notified?: Yes Primary care physician: Brenda [facility] Course: 1. Acute hepatitis, exact etiology unclear. Viral hepatitis screen was negative. Liver function tests improving. Gastroenterology and general surgery consulted. Ultrasound of the abdomen showed a 3 cm gallstone there is a symptomatic. .Patient was offered a laparoscopic cholecystectomy but she refuses at this time. Tegretol level was subtherapeutic and no toxicity suspected. 2. History of seizure disorder on Tegretol 3. Dehydration with intravascular depletion, continue IV fluid hydration. 4. Uncomplicated urinary tract infection finish 3 days of IV ceftriaxone. Urine culture negative. 5. Essential hypertension: Blood pressure well controlled Patient will be discharged home in a stable condition. She will follow-up with her primary care physician for repeat liver function tests and potassium level within the next couple of days. She will be given potassium supplement daily at home. Patient Condition at Discharge: Good Plan - Discharge Summary New Discharge Prescriptions: New Potassium Chloride ER [K-Dur 10] 10 meq PO DAILY #30 tab Continue carBAMazepine [TEGretol] 200 mg PO DAILY Esomeprazole Magnesium [NexIUM] 40 mg PO DAILY Oxybutynin Xl [Ditropan XL] 5 mg PO DAILY Montelukast [Singulair] 10 mg PO DAILY Meclizine [Antivert] 25 mg PO Q8H PRN PRN Reason: Vertigo Losartan/Hydrochlorothiazide [Losartan-Hctz 100-25 mg Tab] 1 tab PO DAILY Aspirin EC [Ecotrin Low Dose] 81 mg PO DAILY carBAMazepine [TEGretol] 400 mg PO HS Discontinued Esomeprazole Magnesium [NexIUM] 40 mg PO DAILY Diphenoxylate HCl/Atropine [Lomotil 2.5-0.025 mg Tablet] 1 tab PO Q8H PRN PRN Reason: Diarrhea Discharge Medication List Esomeprazole Magnesium [NexIUM] 40 mg PO DAILY 10/12/14 [History] carBAMazepine [TEGretol] 200 mg PO DAILY 10/12/14 [History] Aspirin EC [Ecotrin Low Dose] 81 mg PO DAILY 12/06/16 [History] Losartan/Hydrochlorothiazide [Losartan-Hctz 100-25 mg Tab] 1 tab PO DAILY [History] Meclizine [Antivert] 25 mg PO Q8H PRN 12/06/16 [History] Montelukast [Singulair] 10 mg PO DAILY 12/06/16 [History] Oxybutynin Xl [Ditropan XL] 5 mg PO DAILY 12/06/16 [History] carBAMazepine [TEGretol] 400 mg PO HS 12/06/16 [History] Potassium Chloride ER [K-Dur 10] 10 meq PO DAILY #30 tab 12/09/16 [Rx] Follow up Appointment(s)/Referral(s): Brenda Wall MD [Primary Care Provider] - 1-2 days Discharge Disposition: HOME SELF-CARE
[2016-12-09 13:05] LABS: ALT 260 U/L (9-52); AST 123 U/L (14-36); Alkaline Phosphatase 222 U/L (38-126); Anion Gap 13 mmol/L; Blood Urea Nitrogen 7 mg/dL (7-17); Calcium 8.9 mg/dL (8.4-10.2); Carbon Dioxide 21 mmol/L (22-30); Chloride 105 mmol/L (98-107); Glucose 104 mg/dL (74-99); Non-African American GFR(MDRD) >60 (>60 ml/min/1.73 sqM); Potassium 3.9 mmol/L (3.5-5.1); Sodium 139 mmol/L (137-145); Total Bilirubin 0.5 mg/dL (0.2-1.3); Total Protein 6.2 g/dL (6.3-8.2)
== END 2016-12-09 13:40 | disposition home or self-care (01) | DRG 442 ==
LOC: EC 13:19 → 4MS4W 16:52
PROVIDERS: ADMIT Internal Medicine; ATTEND Internal Medicine
DX: B17.9 Acute viral hepatitis, unspecified (principal); N39.0 Urinary tract infection, site not specified; E86.0 Dehydration; G40.909 Epilepsy, unspecified, not intractable, without status epilepticus; E87.6 Hypokalemia; G25.81 Restless legs syndrome; I10 Essential (primary) hypertension; J45.909 Unspecified asthma, uncomplicated; K21.9 Gastro-esophageal reflux disease without esophagitis; K80.20 Calculus of gallbladder without cholecystitis without obstruction; Z79.899 Other long term (current) drug therapy; Z87.891 Personal history of nicotine dependence; Z79.82 Long term (current) use of aspirin; R42 Dizziness and giddiness
CPT/HCPCS: 36415; 71020; 76705; 80053; 80074; 80156; 81001; 82550; 82553; 83605; 83735; 83880; 84132; 84443; 84484; 85025; 85610; 85730; 87086; 93005; 94760; 96360; 96361; 96365; 99285

== ENCOUNTER → 2017-06-25 | Outpatient (CLI) | payer MEDICARE ==
--- NOTE | 2017-06-27 09:14 | MM ---
Reason for exam: screening (asymptomatic). Last mammogram was performed 1 year and 9 months ago. History: Patient is postmenopausal. Excisional biopsy of the right breast, April 10, 2007. Benign core biopsy of both breasts, 2002. Benign core biopsy of the right breast, 1989. Took hormonal contraceptives for 15 years beginning at age 19. Taking estrogen for 10 years beginning at age 53. Physical Findings: A clinical breast exam by your physician is recommended on an annual basis and results should be correlated with mammographic findings. MG 3D Screening Mammo W/Cad Bilateral CC and MLO view(s) were taken. Prior study comparison: October 03, 2015, bilateral MG 3d screening mammo w/cad. December 07, 2013, bilateral MG screening mammo w CAD. The breast tissue is heterogeneously dense. This may lower the sensitivity of mammography. Stable benign calcifications. There is no discrete abnormality. No significant changes when compared with prior studies. ASSESSMENT: Benign, BI-RAD 2 RECOMMENDATION: Routine screening mammogram of both breasts in 1 year.
== END | disposition home or self-care (01) ==
LOC: RADMAMWWP 14:58
PROVIDERS: ATTEND Family Medicine
DX: Z12.31 Encounter for screening mammogram for malignant neoplasm of breast (principal); M81.0 Age-related osteoporosis without current pathological fracture
CPT/HCPCS: 77063; 77067

== ENCOUNTER → 2017-06-25 | Outpatient (CLI) | payer MEDICARE ==
[2017-06-25 13:18] LABS: Blood Urea Nitrogen 10 mg/dL (7-17)
--- NOTE | 2017-06-25 15:34 | MR ---
EXAMINATION TYPE: MR brain wo/w con DATE OF EXAM: 06/25/2017 2:07 PM COMPARISON: NONE HISTORY: Benign neoplasm of meninges, unspecified CONTRAST: Patient received 6 mL intravenous Gadavist gadolinium contrast. Multiplanar and multispin-echo imaging of the brain was performed . Pre and post contrast enhanced i mages are obtained. The ventricles, basal cisterns and sulci overlying the cerebral convexities are mildly enlarged. There is evidence of mild to moderate periventricular white matter ischemic demyelination. Remote deep white matter insults are also noted. No acute edema is seen on diffusion weighted imaging. There is no evidence for midline shift or mass effect. Acute intracranial hemorrhage or extra-axial collection is not evident. Again noted is a dural based extra-axial mass left occipital region measuring approximately 3.3 x 3.4 x 3.6 cm versus 3.3 x 3.5 x 3.8 cm previously. No new masses are seen. No midline shift. The paranasal sinuses and mastoid air cells are well-aerated. IMPRESSION: 1. Age-related atrophic and chronic small vessel ischemic change. No acute intracranial process at this time. 2. Stable left occipital meningioma.
== END | disposition home or self-care (01) ==
LOC: RADMRIMAIN 12:52
PROVIDERS: ATTEND Family Medicine
DX: D32.0 Benign neoplasm of cerebral meninges (principal); G31.9 Degenerative disease of nervous system, unspecified; I67.82 Cerebral ischemia; Z01.812 Encounter for preprocedural laboratory examination
CPT/HCPCS: 82565; 84520; 70553; 36415; A9581

== ENCOUNTER → 2017-07-11 | Outpatient (CLI) | payer MEDICARE ==
--- NOTE | 2017-07-11 14:29 | BD ---
EXAMINATION TYPE: Axial Bone Density DATE OF EXAM: 07/11/2017 COMPARISON: NONE CLINICAL HISTORY: 71 YR OLD FEMALE.....ICD-10 CODE M82.0 AGE RELATED OSTEOPOROSIS W/O FX Height: 60 Weight: 143 FRAX RISK QUESTIONS: Glucocorticoids (More than 3mos): ONLY OCCASIONALLY (Ex: prednisone, prednisolone, methylprednisolone, dexamethasone, and hydrocortisone). RISK FACTORS HISTORY OF: Active: YES Diet low in dairy products/other sources of calcium: NO Postmenopausal woman: YES, IN HER 51...TOTAL HYST... MEDICATIONS: Prednisone or other steroids: INHALER PRN How Long: FOR YRS Additional Medications: BP MEDS, XANAX PRN, REFLUX MEDS, MULTIVITAMIN Additional History: NONE TO NOTE EXAM MEASUREMENTS: Bone mineral densitometry was performed using the [employer] System. Bone mineral density as measured about the Lumbar spine is: ----- L1-L4(G/cm2): 1.075 T Score Values are as follows: ----- L1: -1.0 ----- L2: -1.0 ----- L3: -1.3 ----- L4: -0.4 ----- L1-L4: -0.9 Bone mineral density FIRST BONE DENSITY......BASELINE STUDY Bone mineral density about the R hip (g/cm2): 0.811 Bone mineral density about the L hip (g/cm2): 0.825 T Score values are as follows: -----R Neck: -2.0 -----L Neck: -1.8 -----R Total: -1.6 -----L Total: -1.5 Bone mineral density BASELINE STUDY FRAX%S: THERE IS A 12.4% CHANCE OF A MAJOR OSTEOPOROTIC FX AND A 2.7% FOR HIP FX......PROBABILITY OF FX IN 10 YRS TIME IMPRESSION: Osteopenia (T Score between -2.5 and -1). There is slightly increased risk of fracture and the patient may be considered for treatment. Re-Screen 2-5 years. NOTE: T-SCORE=SD OF THE YOUNG ADULT MEAN.
== END | disposition home or self-care (01) ==
LOC: RADBDWWP 12:00
PROVIDERS: ATTEND Family Medicine
DX: M85.80 Other specified disorders of bone density and structure, unspecified site (principal)
CPT/HCPCS: 77080

== ENCOUNTER 2020-02-03 12:49 | Observation (INO) | payer MEDICARE ==
--- NOTE | 2020-02-03 13:21 | ED ---
Dizziness HPI - General Chief Complaint: Syncope Stated Complaint: Syncope Time Seen by Provider: 02/03/20 12:55 Source: patient Mode of arrival: ambulatory Limitations: no limitations - History of Present Illness Initial Comments: Patient is a 74-year-old female past medical history of meningioma who presents to the emergency department after she sustained a syncopal episode. Patient states she lost her earlier this year. She has always had issues with insomnia however it has been worse lately. States she hasn't gotten more then 2 hours of sleep per night. She saw her primary care physician who placed her on Ambien. States that yesterday was a second night that she took it. She awoke from bed and attempted going to the bathroom. States that she woke up and found herself on the floor. Her had was in between the wall and the toilet. Denies hitting her head. She states she was only out for a couple of seconds. Was able to get up and tell her son what had happened. She denies any chest pain or shortness of breath. No headaches or visual changes. No neck pain. Denies any pain in her extremities. No unilateral numbness, weakness or paresthesias. No other alleviating, precipitating or modifying factors - Related Data Home Medications Medication Instructions Recorded Confirmed Esomeprazole Magnesium [NexIUM] 40 mg PO DAILY 10/12/14 02/03/20 carBAMazepine [TEGretol] 200 mg PO DAILY 10/12/14 02/03/20 Aspirin EC [Ecotrin Low Dose] 81 mg PO DAILY 12/06/16 02/03/20 Montelukast [Singulair] 10 mg PO DAILY 12/06/16 02/03/20 Oxybutynin Xl [Ditropan XL] 5 mg PO DAILY 12/06/16 02/03/20 Citalopram Hydrobromide [CeleXA] 10 mg PO DAILY 02/03/20 02/03/20 Diphenox-Atrop 2.5-0.025 mg 1 tab PO Q6H PRN 02/03/20 02/03/20 [Lomotil] Losartan Potassium [Cozaar] 100 mg PO DAILY 02/03/20 02/03/20 Previous Rx's Medication Instructions Recorded Cefuroxime Axetil [Ceftin] 500 mg PO BID 7 Days #14 tab 02/04/20 Allergies Allergy/AdvReac Type Severity Reaction Status Date / Time No Known Allergies Allergy Verified 02/03/20 15:46 Review of Systems ROS Statement: Those systems with pertinent positive or pertinent negative responses have been documented in the HPI. ROS Other: All systems not noted in ROS Statement are negative. Past Medical History Past Medical History: Asthma, GERD/Reflux, Osteoarthritis (OA) Additional Past Medical History / Comment(s): collitis rls incontinence, meningioma. History of Any Multi-Drug Resistant Organisms: None Reported Past Surgical History: Hysterectomy Past Psychological History: No Psychological Hx Reported Smoking Status: Former smoker Past Alcohol Use History: None Reported Past Drug Use History: None Reported General Exam Limitations: no limitations General appearance: alert, in no apparent distress Head exam: Present: atraumatic, normocephalic, normal inspection Eye exam: Present: normal appearance, PERRL, EOMI. Absent: scleral icterus, conjunctival injection, periorbital swelling ENT exam: Present: normal exam, mucous membranes moist Neck exam: Present: normal inspection. Absent: tenderness, meningismus, lymphadenopathy Respiratory exam: Present: normal lung sounds bilaterally. Absent: respiratory distress, wheezes, rales, rhonchi, stridor Cardiovascular Exam: Present: regular rate, normal rhythm, normal heart sounds. Absent: systolic murmur, diastolic murmur, rubs, gallop, clicks GI/Abdominal exam: Present: soft, normal bowel sounds. Absent: distended, tenderness, guarding, rebound, rigid Extremities exam: Present: normal inspection, full ROM, normal capillary refill. Absent: tenderness, pedal edema, joint swelling, calf tenderness Back exam: Present: normal inspection Neurological exam: Present: alert, oriented X3, CN II-XII intact Psychiatric exam: Present: normal affect, normal mood Skin exam: Present: warm, dry, intact, normal color. Absent: rash Course Vital Signs 02/03/20 02/03/20 02/03/20 12:53 14:39 15:36 Temperature 97.8 F Pulse Rate 84 60 61 Pulse Rate [ Pulse Oximetery ] Respiratory 18 18 18 Rate Blood Pressure 130/69 138/62 150/67 Blood Pressure [Right Arm] O2 Sat by Pulse 96 97 97 Oximetry 02/03/20 02/03/20 02/03/20 19:45 20:59 22:05 Temperature Pulse Rate 66 65 61 Pulse Rate [ Pulse Oximetery ] Respiratory 18 18 18 Rate Blood Pressure 149/78 142/61 130/58 Blood Pressure [Right Arm] O2 Sat by Pulse 97 97 98 Oximetry 02/03/20 02/04/20 02/04/20 23:08 00:09 01:02 Temperature Pulse Rate 64 59 L 57 L Pulse Rate [ Pulse Oximetery ] Respiratory 18 18 17 Rate Blood Pressure 146/62 109/56 122/62 Blood Pressure [Right Arm] O2 Sat by Pulse 97 97 97 Oximetry 02/04/20 02/04/20 02/04/20 02:05 03:00 04:06 Temperature Pulse Rate 70 69 71 Pulse Rate [ Pulse Oximetery ] Respiratory 17 18 18 Rate Blood Pressure 104/59 114/52 104/59 Blood Pressure [Right Arm] O2 Sat by Pulse 97 98 97 Oximetry 02/04/20 02/04/20 02/04/20 05:42 07:45 12:50 Temperature 97.7 F 97.7 F 98.1 F Pulse Rate 64 Pulse Rate [ 66 66 Pulse Oximetery ] Respiratory 17 18 18 Rate Blood Pressure 153/97 Blood Pressure 154/75 167/86 [Right Arm] O2 Sat by Pulse 97 97 97 Oximetry EKG Findings - EKG Comments: EKG Findings:: Demonstrates sinus rhythm with a ventricular rate of 65. MA interval 228. QRS 80 QTC of 407. Some ST depression in 2, 3, aVF as well as V3 through V6 Medical Decision Making - Medical Decision Making On arrival patient is placed into room 5. Thorough history and physical exam was performed. Laboratory says conducted. Patient is hyponatremic with a sodium of 125. Potassium 3.1. Troponin 0.035. Patient was given a dose of antibiotics for her abnormal UA. Did recommend hospitalization for syncope for which the patient did agree to. Will consult cardiology. Patient was in agreement with this. I did CT her brain. History of meningioma which demonstrates a stable meningioma. Discussed the case with Dr. García who accepted the patient. She is currently awaiting a bed on the floor - Lab Data Result diagrams: 02/04/20 09:58 02/04/20 09:58 Lab Results 02/03/20 02/03/20 02/03/20 Range/Units 13:31 13:31 13:31 WBC 10.6 (3.8-10.6) k/uL RBC 4.88 (3.80-5.40) m/uL Hgb 14.9 (11.4-16.0) gm/dL Hct 42.2 (34.0-46.0) % MCV 86.4 (80.0-100.0) fL MCH 30.4 (25.0-35.0) pg MCHC 35.2 (31.0-37.0) g/dL RDW 12.3 (11.5-15.5) % Plt Count 242 (150-450) k/uL MPV 6.4 Neutrophils % 88 % Lymphocytes % 6 % Monocytes % 4 % Eosinophils % 1 % Basophils % 0 % Neutrophils # 9.3 H (1.3-7.7) k/uL Lymphocytes # 0.7 L (1.0-4.8) k/uL Monocytes # 0.5 (0-1.0) k/uL Eosinophils # 0.1 (0-0.7) k/uL Basophils # 0.0 (0-0.2) k/uL PT 10.4 (9.0-12.0) sec INR 1.0 (<1.2) APTT 22.2 (22.0-30.0) sec Sodium (137-145) mmol/L Potassium (3.5-5.1) mmol/L Chloride (98-107) mmol/L Carbon Dioxide (22-30) mmol/L Anion Gap mmol/L BUN (7-17) mg/dL Creatinine (0.52-1.04) mg/dL Est GFR (CKD-EPI)AfAm (>60 ml/min/1.73 sqM) Est GFR (CKD-EPI)NonAf (>60 ml/min/1.73 sqM) Glucose (74-99) mg/dL Calcium (8.4-10.2) mg/dL Total Bilirubin (0.2-1.3) mg/dL AST (14-36) U/L ALT (4-34) U/L Alkaline Phosphatase (38-126) U/L Troponin I (0.000-0.034) ng/mL Total Protein (6.3-8.2) g/dL Albumin (3.5-5.0) g/dL Urine Color Yellow Urine Appearance Clear (Clear) Urine pH 8.0 (5.0-8.0) Ur Specific [place] 1.014 (1.001-1.035) Urine Protein Trace H (Negative) Urine Glucose (UA) Negative (Negative) Urine Ketones Negative (Negative) Urine Blood Negative (Negative) Urine Nitrite Negative (Negative) Urine Bilirubin Negative (Negative) Urine Urobilinogen <2.0 (<2.0) mg/dL Ur Leukocyte Esterase Moderate H (Negative) Urine WBC 29 H (0-5) /hpf Ur Squamous Epith Cells <1 (0-4) /hpf Urine Bacteria Rare H (None) /hpf Urine Mucus Rare H (None) /hpf 02/03/20 02/03/20 Range/Units 13:31 13:31 WBC (3.8-10.6) k/uL RBC (3.80-5.40) m/uL Hgb (11.4-16.0) gm/dL Hct (34.0-46.0) % MCV (80.0-100.0) fL MCH (25.0-35.0) pg MCHC (31.0-37.0) g/dL RDW (11.5-15.5) % Plt Count (150-450) k/uL MPV Neutrophils % % Lymphocytes % % Monocytes % % Eosinophils % % Basophils % % Neutrophils # (1.3-7.7) k/uL Lymphocytes # (1.0-4.8) k/uL Monocytes # (0-1.0) k/uL Eosinophils # (0-0.7) k/uL Basophils # (0-0.2) k/uL PT (9.0-12.0) sec INR (<1.2) APTT (22.0-30.0) sec Sodium 125 L (137-145) mmol/L Potassium 3.1 L (3.5-5.1) mmol/L Chloride 93 L (98-107) mmol/L Carbon Dioxide 22 (22-30) mmol/L Anion Gap 10 mmol/L BUN 6 L (7-17) mg/dL Creatinine 0.53 (0.52-1.04) mg/dL Est GFR (CKD-EPI)AfAm >90 (>60 ml/min/1.73 sqM) Est GFR (CKD-EPI)NonAf >90 (>60 ml/min/1.73 sqM) Glucose 118 H (74-99) mg/dL Calcium 9.4 (8.4-10.2) mg/dL Total Bilirubin 0.6 (0.2-1.3) mg/dL AST 35 (14-36) U/L ALT 22 (4-34) U/L Alkaline Phosphatase 82 (38-126) U/L Troponin I 0.035 H* (0.000-0.034) ng/mL Total Protein 6.7 (6.3-8.2) g/dL Albumin 4.4 (3.5-5.0) g/dL Urine Color Urine Appearance (Clear) Urine pH (5.0-8.0) Ur Specific [place] (1.001-1.035) Urine Protein (Negative) Urine Glucose (UA) (Negative) Urine Ketones (Negative) Urine Blood (Negative) Urine Nitrite (Negative) Urine Bilirubin (Negative) Urine Urobilinogen (<2.0) mg/dL Ur Leukocyte Esterase (Negative) Urine WBC (0-5) /hpf Ur Squamous Epith Cells (0-4) /hpf Urine Bacteria (None) /hpf Urine Mucus (None) /hpf Disposition Clinical Impression: Syncope, NSTEMI (non-ST elevated myocardial infarction), Hypokalemia, Hyponatremia Disposition: ADMITTED IP TO THIS [facility] Condition: Stable Is patient prescribed a controlled substance at d/c from ED?: No Decision to Admit Reason: Admit from EC Decision Date: 02/03/20 Decision Time: 15:45
[2020-02-03 13:47] LABS: Basophils % (A) 0 %; Eosinophils # (A) 0.1 k/uL (0-0.7); Eosinophils % (A) 1 %; HCT 42.2 % (34.0-46.0); HGB 14.9 gm/dL (11.4-16.0); Lymphocytes # (A) 0.7 k/uL (1.0-4.8); Lymphocytes % (A) 6 %; MCH 30.4 pg (25.0-35.0); MCHC 35.2 g/dL (31.0-37.0); MCV 86.4 fL (80.0-100.0); Mean Platelet Volume 6.4; Monocytes # (A) 0.5 k/uL (0-1.0); Monocytes % (A) 4 %; Neutrophils # (A) 9.3 k/uL (1.3-7.7); Neutrophils % (A) 88 %; Platelet Count 242 k/uL (150-450); RBC 4.88 m/uL (3.80-5.40); RDW 12.3 % (11.5-15.5); WBC 10.6 k/uL (3.8-10.6)
[2020-02-03 13:51] LABS: Appearance,Urine Clear (Clear); Bacteria,Urine Rare /hpf; Bilirubin,Urine Negative (Negative); Blood,Urine Negative (Negative); Color,Urine Yellow; Glucose,Urine (UA) Negative (Negative); Ketones,Urine Negative (Negative); Leukocyte Esterase,Urine Moderate (Negative); Mucus,Urine Rare /hpf; Nitrite,Urine Negative (Negative); Protein,Urine Trace (Negative); Specific Gravity,Urine 1.014 (1.001-1.035); Squamous Epithelial Cell,Urine <1 /hpf (0-4); Urobilinogen,Urine <2.0 mg/dL (<2.0); WBC,Urine 29 /hpf (0-5)
[2020-02-03 13:59] LABS: Partial Thromboplastin Time 22.2 sec (22.0-30.0); Prothrombin Time 10.4 sec (9.0-12.0)
[2020-02-03 14:01] LABS: ALT 22 U/L (4-34); AST 35 U/L (14-36); African American GFR (CKD) >90 (>60 ml/min/1.73 sqM); Albumin 4.4 g/dL (3.5-5.0); Alkaline Phosphatase 82 U/L (38-126); Anion Gap 10 mmol/L; Blood Urea Nitrogen 6 mg/dL (7-17); Calcium 9.4 mg/dL (8.4-10.2); Carbon Dioxide 22 mmol/L (22-30); Chloride 93 mmol/L (98-107); Glucose 118 mg/dL (74-99); Non-African American GFR(CKD) >90 (>60 ml/min/1.73 sqM); Potassium 3.1 mmol/L (3.5-5.1); Sodium 125 mmol/L (137-145); Total Bilirubin 0.6 mg/dL (0.2-1.3); Total Protein 6.7 g/dL (6.3-8.2)
--- NOTE | 2020-02-03 14:02 | XR ---
EXAMINATION TYPE: XR chest 2V DATE OF EXAM: 02/03/2020 COMPARISON: NONE TECHNIQUE: PA and lateral views submitted. HISTORY: Syncope FINDINGS: The lungs are clear and there is no pneumothorax, pleural effusion, or focal pneumonia. Diffuse ost eopenia with arthropathy of the shoulders. Hyperinflation suggests COPD. Hypertrophic and degenerativ e changes spine. Atherosclerotic change aorta. No overt failure. IMPRESSION: 1. No acute process. Correlate for COPD.
--- NOTE | 2020-02-03 14:08 | CT ---
EXAMINATION TYPE: CT brain wo con DATE OF EXAM: 02/03/2020 COMPARISON: 06/25/2017 HISTORY: Syncopal episode today with possible injury CT DLP: 1076.4 mGycm Automated exposure control for dose reduction was used. FINDINGS: There is a large calcified mass along the posterior margin of the interhemispheric fissure resulting in compression of the left occipital lobe area suspect this is likely extra-axial related to large me ningioma Ventricular system compatible with the patient's age. No evidence of acute hemorrhage. Calvarium inta ct. Cerebellar tonsils low-lying in position just below the level of foramen magnum. Similar appearan ce to the prior MRI 07-11. IMPRESSION: 1. LARGE LEFT CEREBRAL HEMISPHERE MASS APPEARS TO BE EXTRA-AXIAL, CALCIFIED AND STABLE FROM THE PRIOR EXAM OF 06/25/2017. FINDINGS MOST COMPATIBLE WITH A MENINGIOMA. 2. LOW-LYING CEREBELLAR TONSILS STABLE IN APPEARANCE CORRELATE FOR CHIARI MALFORMATION.
[2020-02-03] MEDS ORDERED: NALOXONE 0.4 MG/ML 1 ML VIAL IV PRN (15:45)
[2020-02-03] MEDS ORDERED: POTASSIUM CHLORIDE ER 20 MEQ TAB.ER PO STA (15:47)
[2020-02-03] MEDS ORDERED: cefTRIAXone IN SWFI 1,000 MG/10 ML SYRINGE IVP STA (15:50)
[2020-02-03] MEDS: SODIUM CHLORIDE 0.9% 1,000 ML IV SCH ×2 (16:09→16:10)
[2020-02-03] MEDS ORDERED: QUEtiapine 25 MG TAB PO SCH (21:00)
[2020-02-03] MEDS ORDERED: LORazepam 2 MG/ML INJ IV STA (22:51)
[2020-02-04] MEDS ORDERED: PANTOPRAZOLE 40 MG TABLET PO SCH (07:30)
[2020-02-04 08:05] VITALS: RESP 18
[2020-02-04] MEDS ORDERED: hydroCHLOROthiazide 25 MG TAB PO SCH (09:00)
[2020-02-04] MEDS ORDERED: OXYBUTYNIN XL 5 MG TAB.ER.24 PO SCH (09:00)
[2020-02-04] MEDS ORDERED: ASPIRIN 81 MG PO SCH (09:00)
[2020-02-04] MEDS ORDERED: carBAMazepine 200 MG TAB PO SCH (09:00)
[2020-02-04] MEDS ORDERED: CITALOPRAM HYDROBROMIDE 10 MG TAB PO SCH (09:00)
[2020-02-04] MEDS ORDERED: LOSARTAN 50 MG TAB PO SCH (09:00)
[2020-02-04] MEDS ORDERED: MONTELUKAST 10 MG TAB PO SCH (09:00)
--- NOTE | 2020-02-04 09:33 | US ---
EXAMINATION TYPE: US carotid duplex BILAT DATE OF EXAM: 02/04/2020 COMPARISON: NONE CLINICAL HISTORY: dizziness. syncope EXAM MEASUREMENTS: RIGHT: Peak Systolic Velocity (PSV) cm/sec ----- Right CCA: 60.1 ----- Right ICA: 106.0 ----- Right ECA: 106.0 ICA/CCA ratio: 1.8 RIGHT: End Diastole cm/sec ----- Right CCA: 9.5 ----- Right ICA: 32.2 ----- Right ECA: 6.3 LEFT: Peak Systolic Velocity (PSV) cm/sec ----- Left CCA: 77.6 ----- Left ICA: 133.9 ----- Left ECA: 98.4 ICA/CCA ratio: 1.7 LEFT: End Diastole cm/sec ----- Left CCA: 13.0 ----- Left ICA: 40.2 ----- Left ECA: 11.1 VERTEBRALS (direction of flow): Right Vertebral: Antegrade Left Vertebral: Antegrade Rhythm: Normal Mild to moderate plaque bilateral bifurcations. Slightly increased velocities left ICA IMPRESSION: No hemodynamic significant stenosis of the proximal internal carotid arteries bilaterall y by Doppler criteria, an indirect measurement of carotid stenosis. Mild elevation of the proximal in ternal carotid artery velocity on the left without elevated ICA to CCA ratio, borderline elevated end -diastolic velocity. Consider follow-up. Criteria for Assigning % of Stenosis / Diameter reduction (Estimation based on the indirect measurements of the internal carotid artery velocities (ICA PSV). 1. Normal (no stenosis)=ICA PSV < 125 cm/s: ratio < 2.0: ICA EDV<40 cm/s. 2. Less than 50% stenosis=ICA PSV < 125 cm/s: ratio < 2.0: ICA EDV<40 cm/s. 3. 50 to 69% stenosis=ICA PSV of 125 to 230 cm/s: ration 2.0 ? 4.0: ICA EDV 40-100 cm/s. 4. Greater than 70% stenosis to near occlusion= ICA PSV > 230 cm/s: ratio > 4.0: ICA EDV > 100 cm/s. 5. Near occlusion= ICA PSV velocities may be low or undetectable: variable ratio and ICA EDV. 6. Total occlusion=unable to detect flow.
[2020-02-04] MEDS: SODIUM CHLORIDE 0.9% 1,000 ML IV SCH (09:46)
[2020-02-04 10:19] LABS: Basophils % (A) 0 %; Eosinophils % (A) 1 %; HCT 40.9 % (34.0-46.0); HGB 13.9 gm/dL (11.4-16.0); Lymphocytes % (A) 18 %; MCH 30.2 pg (25.0-35.0); MCHC 34.1 g/dL (31.0-37.0); MCV 88.7 fL (80.0-100.0); Mean Platelet Volume 6.3; Monocytes # (A) 0.4 k/uL (0-1.0); Monocytes % (A) 7 %; Neutrophils # (A) 4.2 k/uL (1.3-7.7); Neutrophils % (A) 73 %; Platelet Count 204 k/uL (150-450); RBC 4.61 m/uL (3.80-5.40); RDW 12.4 % (11.5-15.5); WBC 5.8 k/uL (3.8-10.6)
[2020-02-04 10:30] LABS: African American GFR (CKD) >90 (>60 ml/min/1.73 sqM); Anion Gap 6 mmol/L; Blood Urea Nitrogen 4 mg/dL (7-17); Calcium 9.2 mg/dL (8.4-10.2); Carbon Dioxide 30 mmol/L (22-30); Chloride 92 mmol/L (98-107); Glucose 134 mg/dL (74-99); Non-African American GFR(CKD) >90 (>60 ml/min/1.73 sqM); Potassium 3.8 mmol/L (3.5-5.1); Sodium 128 mmol/L (137-145)
--- NOTE | 2020-02-04 11:00 | ECHOF ---
Referral Reason:dizziness MEASUREMENTS -------- HEIGHT: 154.9 cm WEIGHT: 58.1 kg BP: RVIDd: 1.9 cm (< 3.3) IVSd: 1.0 cm (0.6 - 1.1) LVIDd: 2.7 cm (3.9 - 5.3) LVPWd: 0.9 cm (0.6 - 1.1) IVSs: 1.6 cm LVIDs: 1.5 cm LVPWs: 1.4 cm LAESV Index (A-L): 28.64 ml/m Ao Diam: 2.9 cm (2.0 - 3.7) LA Diam: 2.3 cm (2.7 - 3.8) MV EXCURSION: 15.618 mm (> 18.000) MV EF SLOPE: 54 mm/s (70 - 150) EPSS: 0.8 cm MV E Juan: 1.07 m/s MV DecT: 185 ms MV A Juan: 0.68 m/s MV E/A Ratio: 1.58 RAP: 5.00 mmHg RVSP: 20.42 mmHg FINDINGS -------- This was a technically adequate study. The left ventricular size is normal. Left ventricular wall thickness is normal. Overall left vent ricular systolic function is normal with, an EF between 55 - 60 %. The diastolic filling pattern is normal for the age of the patient 18.73. The right ventricle is normal in size. The left atrial size is normal. Normal LA size by volume 22+/-6 ml/m2. The right atrial size is normal. The aortic valve is trileaflet and appears structurally normal. The mitral valve is normal. Mild mitral regurgitation is present. The tricuspid valve appears structurally normal. Trace tricuspid regurgitation present. Right sharla tricular systolic pressure is normal at < 35 mmHg. There is no pulmonic regurgitation present. The aortic root size is normal. Normal inferior vena cava with normal inspiratory collapse consistent with estimated right atrial pre ssure of 5 mmHg. There is a small, generalized pericardial effusion present. CONCLUSIONS -------- 1. The left ventricular size is normal. 2. Left ventricular wall thickness is normal. 3. Overall left ventricular systolic function is normal with, an EF between 55 - 60 %. 4. Mild mitral regurgitation is present. 5. Trace tricuspid regurgitation present. 6. There is a small, generalized pericardial effusion present. VARNISH SUPERVISOR: Brooke Gomez RDCS
[2020-02-04 13:00] VITALS: BP 167/86; PULSE 66; TEMP 98.1
--- NOTE | 2020-02-04 13:18 | P.CRDCN ---
History of Present Illness History of present illness: HISTORY OF PRESENTING ILLNESS This is a pleasant 74-year-old female past medical history significant for hypertension, meningioma and former nicotine dependence. She has followed in the past with Dr. Almazan however has not been to the office since 2014. We have been asked to see in consultation for syncope. She states for the previous 2 months since the passing of her she has been struggling with sleep. She has tried multiple different sleep aids. This previous week on Friday she was given Ambien by her primary care physician. She took her first dose on Friday night and did not get much sleep. She tried BMP and again on Friday night and again had the same problem. She states she only slept for approximately one hour. After tossing and turning in bed for quite a while she decided to walk out and glistening on the couch. While she was walking to the couch she felt a tick in her neck which is chronic. She decided she was going to go back and lay down in bed however she woke up on the floor a few minutes later. She does not recall feeling dizzy or lightheaded. She had no symptoms of chest pain, shortness of breath or palpitations. She was not diaphoretic and had no nausea or vomiting. The patient states she does take Tegretol for this chronic tick that she has. She has not missed a dose. She denies ever having had a seizure in the past. Echocardiogram obtained reveals preserved LV systolic function with ejection fraction 55-60%. DIAGNOSTICS EKG reveals sinus mechanism with first-degree AV block with ST depression noted in the inferior lateral leads. T-wave inversions noted laterally. Compared to previous EKGs dating all the way back to 2014 he's changes are chronic. She also underwent a stress echocardiogram in the office in 2014 that was negative for stress-induced ischemia. Telemetry tracings indicate persistent sinus mechanism with no significant bradycardia arrhythmia. Chest xray negative for an acute cardiopulmonary process with underlying COPD. CT of the brain reveals a large left cerebral mass appears to be extra-axial, calcified and stable from prior exam of 2018 compatible with meningioma, low lying cerebellar tonsils stable in appearance correlate for Chiari malformation. Bilateral carotid Doppler reveals no hemodynamic significant stenosis of the proximal internal carotid arteries bilaterally. Mild elevation of the proximal internal carotid artery velocity on the left without elevated ratios. Laboratory reviewed, CBC unremarkable, sodium 128, potassium 3.8, creatinine 0.51, cardiac enzymes 0.035, 0.025 and 0.021. Current cardiac medications include hydrochlorothiazide 25 mg daily, aspirin 81 mg daily and losartan 100 mg daily. REVIEW OF SYSTEMS At the time of my exam: CONSTITUTIONAL: Denies fever or chills. CARDIOVASCULAR: Denies chest pain, shortness of breath, orthopnea, PND or palpitations. RESPIRATORY: Denies cough. GASTROINTESTINAL: Denies abdominal pain, diarrhea, constipation, nausea or vomiting. MUSCULOSKELETAL: Denies myalgias. NEUROLOGIC: Denies numbness, tingling or weakness. ENDOCRINE: Denies fatigue, weight change, polydipsia or polyurina. GENITOURINARY: Denies burning, hematuria or urgency with micturation. HEMATOLOGIC: Denies history of anemia or bleeding. PHYSICAL EXAMINATION Blood pressure 167/86 heart rate 66 afebrile and maintaining oxygen saturation on room air. CONSTITUTIONAL: No apparent distress. HEENT: Head is normocephalic. Pupils are equal, round. Sclerae anicteric. Mucous membranes of the mouth are moist. No JVD. No carotid bruit. CHEST EXAMINATION: Lungs are clear to auscultation. No chest wall tenderness is noted on palpation or with deep breathing. HEART EXAMINATION: Regular rate and rhythm. S1, S2 heard. No murmurs, gallops or rub. ABDOMEN: Soft, nontender. Positive bowel sounds. EXTREMITIES: 2+ peripheral pulses, no lower extremity edema and no calf tenderness. NEUROLOGIC EXAMINATION: Patient is awake, alert and oriented x3. ASSESSMENT Syncope Hypertension Meningioma Former nicotine dependence PLAN Symptoms of syncope likely related to combination of no sleep and newly taking Ambien. The patient also states a medium is making her hallucinate and hear voices. No evidence of bradycardia arrhythmia noted on telemetry tracings since arriving at the hospital yesterday at 1:30 pm. Patient can be discharged home t o follow-up with Dr. Wyatt in the outpatient setting. Thank you kindly for this consultation. Nurse Practitioner note has been reviewed, I agree with a documented findings and plan of care. Patient was seen and examined. Past Medical History Past Medical History: Asthma, GERD/Reflux, Osteoarthritis (OA) Additional Past Medical History / Comment(s): collitis rls incontinence, meningioma. History of Any Multi-Drug Resistant Organisms: None Reported Past Surgical History: Hysterectomy Past Psychological History: No Psychological Hx Reported Smoking Status: Former smoker Past Alcohol Use History: None Reported Past Drug Use History: None Reported Medications and Allergies Home Medications Medication Instructions Recorded Confirmed Type Esomeprazole Magnesium [NexIUM] 40 mg PO DAILY 10/12/14 02/03/20 History carBAMazepine [TEGretol] 200 mg PO DAILY 10/12/14 02/03/20 History Aspirin EC [Ecotrin Low Dose] 81 mg PO DAILY 12/06/16 02/03/20 History Montelukast [Singulair] 10 mg PO DAILY 12/06/16 02/03/20 History Oxybutynin Xl [Ditropan XL] 5 mg PO DAILY 12/06/16 02/03/20 History Citalopram Hydrobromide [CeleXA] 10 mg PO DAILY 02/03/20 02/03/20 History Diphenox-Atrop 2.5-0.025 mg 1 tab PO Q6H PRN 02/03/20 02/03/20 History [Lomotil] Losartan Potassium [Cozaar] 100 mg PO DAILY 02/03/20 02/03/20 History hydroCHLOROthiazide [Hydrodiuril] 25 mg PO DAILY 02/03/20 02/03/20 History Allergies Allergy/AdvReac Type Severity Reaction Status Date / Time No Known Allergies Allergy Verified 02/03/20 15:46 Physical Exam Vitals: Vital Signs Temp Pulse Resp BP BP Pulse Ox 02/04/20 07:45 97.7 F 18 154/75 02/04/20 05:42 97.7 F 64 17 153/97 97 02/04/20 04:06 71 18 104/59 97 02/04/20 03:00 69 18 114/52 98 02/04/20 02:05 70 17 104/59 97 02/04/20 01:02 57 L 17 122/62 97 02/04/20 00:09 59 L 18 109/56 97 02/03/20 23:08 64 18 146/62 97 02/03/20 22:05 61 18 130/58 98 02/03/20 20:59 65 18 142/61 97 02/03/20 19:45 66 18 149/78 97 02/03/20 15:36 61 18 150/67 97 02/03/20 14:39 60 18 138/62 97 02/03/20 12:53 97.8 F 84 18 130/69 96 Intake and Output 02/03/20 02/04/20 02/04/20 22:59 06:59 14:59 Intake Total 900 Balance 900 Intake: Intake, IV Titration 900 Amount Sodium Chloride 0.9% 1, 900 000 ml @ 100 mls/hr IV . Q10H [facility] Rx#:[id number] Other: # Voids 1 # Bowel Movements 1 Results 02/04/20 09:58 02/04/20 09:58 Cardiac Enzymes 02/03/20 02/03/20 02/03/20 Range/Units 13:31 13:31 17:38 AST 35 (14-36) U/L Troponin I 0.035 H* 0.025 (0.000-0.034) ng/mL 02/03/20 Range/Units 20:02 AST (14-36) U/L Troponin I 0.021 (0.000-0.034) ng/mL Coagulation 02/03/20 Range/Units 13:31 PT 10.4 (9.0-12.0) sec APTT 22.2 (22.0-30.0) sec CBC 02/03/20 Range/Units 13:31 WBC 10.6 (3.8-10.6) k/uL RBC 4.88 (3.80-5.40) m/uL Hgb 14.9 (11.4-16.0) gm/dL Hct 42.2 (34.0-46.0) % Plt Count 242 (150-450) k/uL Comprehensive Metabolic Panel 02/03/20 Range/Units 13:31 Sodium 125 L (137-145) mmol/L Potassium 3.1 L (3.5-5.1) mmol/L Chloride 93 L (98-107) mmol/L Carbon Dioxide 22 (22-30) mmol/L BUN 6 L (7-17) mg/dL Creatinine 0.53 (0.52-1.04) mg/dL Glucose 118 H (74-99) mg/dL Calcium 9.4 (8.4-10.2) mg/dL AST 35 (14-36) U/L ALT 22 (4-34) U/L Alkaline Phosphatase 82 (38-126) U/L Total Protein 6.7 (6.3-8.2) g/dL Albumin 4.4 (3.5-5.0) g/dL Current Medications Generic Name Dose Route Start Last Admin Trade Name Freq PRN Reason Stop Dose Admin Aspirin 81 mg 02/04/20 09:00 Aspirin 81 Mg PO DAILY [facility] Carbamazepine 200 mg 02/04/20 09:00 Carbamazepine 200 Mg Tab PO DAILY [facility] Citalopram Hydrobromide 10 mg 02/04/20 09:00 Citalopram Hydrobromide 10 Mg Tab PO DAILY [facility] Hydrochlorothiazide 25 mg 02/04/20 09:00 Hydrochlorothiazide 25 Mg Tab PO DAILY [facility] Sodium Chloride 1,000 mls @ 100 mls/hr 02/03/20 15:45 02/03/20 16:09 Saline 0.9% IV 100 mls/hr .Q10H [facility] Administration Losartan Potassium 100 mg 02/04/20 09:00 Losartan 50 Mg Tab PO DAILY [facility] Montelukast Sodium 10 mg 02/04/20 09:00 Montelukast 10 Mg Tab PO DAILY [facility] Naloxone HCl 0.2 mg 02/03/20 15:45 Naloxone 0.4 Mg/Ml 1 Ml Vial IV Q2M PRN Opioid Reversal Oxybutynin Chloride 5 mg 02/04/20 09:00 Oxybutynin Xl 5 Mg Tab.Er.24 PO DAILY [facility] Pantoprazole Sodium 40 mg 02/04/20 07:30 Pantoprazole 40 Mg Tablet PO AC-BRKFST [facility] Quetiapine Fumarate 25 mg 02/03/20 21:00 02/03/20 20:58 Quetiapine 25 Mg Tab PO 25 mg HS [facility] Administration Intake and Output 02/03/20 02/04/20 02/04/20 22:59 06:59 14:59 Intake Total 900 Balance 900 Intake: Intake, IV Titration 900 Amount Sodium Chloride 0.9% 1, 900 000 ml @ 100 mls/hr IV . Q10H [facility] Rx#:[id number] Other: # Voids 1 # Bowel Movements 1 02/03/20 13:31 02/03/20 13:31
--- NOTE | 2020-02-04 14:48 | P.HPIM ---
History of Present Illness H&P Date: 02/04/20 Ranjana Doyle is a 74-year-old female who presented to [facility] emergency room after having a syncopal episode, patient states that she has been having difficulty sleeping she has worked with her primary care physician on finding a sleeping pill she was recently started on Ambien after trying several other sleeping pills, patient stated that she has been sleeping less than 2 hours per night, patient took Ambien, and she woke up finding herself on the floor in the hallway in her house she denies any head trauma she denies any neck pain or headache on presentation she was evaluated in the emergency room her vital examination on presentation revealed a temperature of 97.8 pulse 84 respiration 18 blood pressure 130/69 pulse ox 96% on room air whit e blood count was 10.6 hemoglobin 14.9 platelet count 242 sodium was low at 125 potassium low at 3.1 troponin level was slightly elevated at 0.035, urine analysis revealed 29 WBC and moderate leukocyte esterase patient was admitted to medical floor cardiology consultation was requested echocardiogram was ordered she was given a dose of IV Rocephin for urinary tract infection. Past medical history is significant for history of hypertension, history of gastroesophageal reflux disease, history of a facial tic for which patient takes carbamazepine, history of depression maintained on Celexa history of asthma maintained on Singulair. On review of systems patient is feeling well she is alert and oriented 3 she denies any dizziness or lightheadedness at this time , there is no fever or chills no headache or dizziness no chest pain no shortness of breath no cough no nausea or vomiting no abdominal pain no diarrhea no blood in the stools no burning with urination no frequency or urgency and no hematuria she is requesting to be discharged home. Past Medical History Past Medical History: Asthma, GERD/Reflux, Osteoarthritis (OA) Additional Past Medical History / Comment(s): collitis rls incontinence, meningioma. History of Any Multi-Drug Resistant Organisms: None Reported Past Surgical History: Hysterectomy Past Psychological History: No Psychological Hx Reported Smoking Status: Former smoker Past Alcohol Use History: None Reported Past Drug Use History: None Reported Medications and Allergies Home Medications Medication Instructions Recorded Confirmed Type Esomeprazole Magnesium [NexIUM] 40 mg PO DAILY 10/12/14 02/03/20 History carBAMazepine [TEGretol] 200 mg PO DAILY 10/12/14 02/03/20 History Aspirin EC [Ecotrin Low Dose] 81 mg PO DAILY 12/06/16 02/03/20 History Montelukast [Singulair] 10 mg PO DAILY 12/06/16 02/03/20 History Oxybutynin Xl [Ditropan XL] 5 mg PO DAILY 12/06/16 02/03/20 History Citalopram Hydrobromide [CeleXA] 10 mg PO DAILY 02/03/20 02/03/20 History Diphenox-Atrop 2.5-0.025 mg 1 tab PO Q6H PRN 02/03/20 02/03/20 History [Lomotil] Losartan Potassium [Cozaar] 100 mg PO DAILY 02/03/20 02/03/20 History Allergies Allergy/AdvReac Type Severity Reaction Status Date / Time No Known Allergies Allergy Verified 02/03/20 15:46 Physical Exam Vitals: Vital Signs Temp Pulse Pulse Resp BP BP Pulse Ox 02/04/20 12:50 98.1 F 66 18 167/86 97 02/04/20 07:45 97.7 F 66 18 154/75 97 02/04/20 05:42 97.7 F 64 17 153/97 97 02/04/20 04:06 71 18 104/59 97 02/04/20 03:00 69 18 114/52 98 02/04/20 02:05 70 17 104/59 97 02/04/20 01:02 57 L 17 122/62 97 02/04/20 00:09 59 L 18 109/56 97 02/03/20 23:08 64 18 146/62 97 02/03/20 22:05 61 18 130/58 98 02/03/20 20:59 65 18 142/61 97 02/03/20 19:45 66 18 149/78 97 02/03/20 15:36 61 18 150/67 97 02/03/20 14:39 60 18 138/62 97 Intake and Output 02/03/20 02/04/20 02/04/20 22:59 06:59 14:59 Intake Total 900 Balance 900 Intake: Intake, IV Titration 900 Amount Sodium Chloride 0.9% 1, 900 000 ml @ 100 mls/hr IV . Q10H [facility] Rx#:[id number] Other: # Voids 1 # Bowel Movements 1 In general patient is alert and oriented 3 in no apparent distress HEENT head normocephalic and atraumatic Neck is supple no JVD no goiter no lymphadenopathy Chest exam reveals a few scattered rhonchi no wheezing Cardiac exam reveals regular heart sounds S1 and S2 no gallops no murmurs Abdomen is soft nontender no organomegaly with normal bowel sounds Extremity exam reveals no edema no cyanosis or clubbing Neurological examination reveals no gross focal neurological deficit Results CBC & Chem 7: 02/04/20 09:58 02/04/20 09:58 Labs: Abnormal Lab Results - Last 24 Hours (Table) 02/03/20 02/04/20 Range/Units 13:31 09:58 Sodium 128 L (137-145) mmol/L Chloride 92 L (98-107) mmol/L BUN 4 L (7-17) mg/dL Creatinine 0.51 L (0.52-1.04) mg/dL Glucose 134 H (74-99) mg/dL Troponin I 0.035 H* (0.000-0.034) ng/mL Assessment and Plan Plan: 1. Episode of syncope, echocardiogram done and reveals normal left ventricular systolic function, no cardiac arrhythmia noted on telemetry, cardiology consultation was requested. 2. Hyponatremia sodium 1 presentation 125 at this time will discontinue hydro- Diuril, give normal saline and monitor sodium level 3. Underlying history of hypertension 4. Underlying history of gastroesophageal reflux disease 5. Evidence of urinary tract infection patient was given IV Rocephin in the emergency room Will monitor patient on telemetry, will follow closely
--- NOTE | 2020-02-04 14:51 | P.DS ---
Providers Date of admission: 02/03/20 15:45 Expected date of discharge: 02/04/20 Attending physician: Faina García Consults: 02/03/20 15:46 Consult Physician Urgent Consulting Provider: [facility] Consult Reason/Comments: acute syncope, nstemi Do you want consulting provider notified?: Yes Primary care physician: [facility] Course: Diagnoses on discharge: 1. Episode of syncope, echocardiogram done and reveals normal left ventricular systolic function, no cardiac arrhythmia noted on telemetry, cardiology consultation was requested. 2. Hyponatremia sodium 1 presentation 125 at this time will discontinue hydro- Diuril, give normal saline and monitor sodium level 3. Underlying history of hypertension 4. Underlying history of gastroesophageal reflux disease 5. Evidence of urinary tract infection patient was given IV Rocephin in the emergency room Hospital course: Ranjana Doyle is a 74-year-old female who presented to [facility] emergency room after having a syncopal episode, patient states that she has been having difficulty sleeping she has worked with her primary care physician on finding a sleeping pill she was recently started on Ambien after trying several other sleeping pills, patient stated that she has been sleeping less than 2 hours per night, patient took Ambien, and she woke up finding herself on the floor in the hallway in her house she denies any head trauma she denies any neck pain or headache on presentation she was evaluated in the emergency room her vital examination on presentation revealed a temperature of 97.8 pulse 84 respiration 18 blood pressure 130/69 pulse ox 96% on room air white blood count was 10.6 hemoglobin 14.9 platelet count 242 sodium was low at 125 potassium low at 3.1 troponin level was slightly elevated at 0.035, urine analysis revealed 29 WBC and moderate leukocyte esterase patient was admitted to medical floor cardiology consultation was requested echocardiogram was ordered she was given a dose of IV Rocephin for urinary tract infection. Past medical history is significant for history of hypertension, history of gastroesophageal reflux disease, history of a facial tic for which patient takes carbamazepine, history of depression maintained on Celexa history of asthma maintained on Singulair. On review of systems patient is feeling well she is alert and oriented 3 she denies any dizziness or lightheadedness at this time , there is no fever or chills no headache or dizziness no chest pain no shortness of breath no cough no nausea or vomiting no abdominal pain no diarrhea no blood in the stools no burning with urination no frequency or urgency and no hematuria she is requesting to be discharged home. On 02/04/2020 patient was seen and examined on the medical floor she is alert and oriented 3 in no apparent distress there is no symptoms of dizziness or lightheadedness. Patient is able to ambulate without any difficulty. She was evaluated by cardiology echocardiogram was done and revealed normal left ventricular systolic function, serial cardiac enzymes were negative after the slightly elevated first initial troponin of 0.035, the second and third troponin level were negative, patient was evaluated by cardiology and was cleared for discharge. On presentation today patient had a low sodium of 125 hydro-Diuril was discontinued and she was given IV fluid normal saline her sodium came up to 128, she also had evidence of urinary tract infection she was given 1 dose of IV Rocephin, patient was stable she was hoping to be discharged home, patient will be discharged home on 02/04/2020 she will be given a course of Ceftin 500 mg twice daily for 7 days for urinary tract infection, she was asked to stay off her sleeping pill and to stay off her hydro-Diuril, and follow-up with her primary care physician within 1-2 days Patient Condition at Discharge: Stable Plan - Discharge Summary New Discharge Prescriptions: New Cefuroxime Axetil [Ceftin] 500 mg PO BID 7 Days #14 tab Continue carBAMazepine [TEGretol] 200 mg PO DAILY Esomeprazole Magnesium [NexIUM] 40 mg PO DAILY Oxybutynin Xl [Ditropan XL] 5 mg PO DAILY Montelukast [Singulair] 10 mg PO DAILY Aspirin EC [Ecotrin Low Dose] 81 mg PO DAILY Losartan Potassium [Cozaar] 100 mg PO DAILY Diphenox-Atrop 2.5-0.025 mg [Lomotil] 1 tab PO Q6H PRN PRN Reason: Diarrhea Citalopram Hydrobromide [CeleXA] 10 mg PO DAILY Discontinued hydroCHLOROthiazide [Hydrodiuril] 25 mg PO DAILY Discharge Medication List Esomeprazole Magnesium [NexIUM] 40 mg PO DAILY 10/12/14 [History] carBAMazepine [TEGretol] 200 mg PO DAILY 10/12/14 [History] Aspirin EC [Ecotrin Low Dose] 81 mg PO DAILY 12/06/16 [History] Montelukast [Singulair] 10 mg PO DAILY 12/06/16 [History] Oxybutynin Xl [Ditropan XL] 5 mg PO DAILY 12/06/16 [History] Citalopram Hydrobromide [CeleXA] 10 mg PO DAILY 02/03/20 [History] Diphenox-Atrop 2.5-0.025 mg [Lomotil] 1 tab PO Q6H PRN 02/03/20 [History] Losartan Potassium [Cozaar] 100 mg PO DAILY 02/03/20 [History] Cefuroxime Axetil [Ceftin] 500 mg PO BID 7 Days #14 tab 02/04/20 [Rx] Follow up Appointment(s)/Referral(s): Yuridia Wyatt MD [STAFF PHYSICIAN] - 02/11/20 1:00 pm (Pt will see Dr Wyatt on the , per Dr Wyatt ) Brenda Wall MD [Primary Care Provider] - 1-2 days
== END 2020-02-04 15:55 | disposition home or self-care (01) ==
LOC: EC 12:49 → 3SCARD 15:45 → 5NMEDONC 02-04 11:16
PROVIDERS: ADMIT Internal Medicine; ATTEND Internal Medicine
DX: R55 Syncope and collapse (principal); E87.1 Hypo-osmolality and hyponatremia; I10 Essential (primary) hypertension; K21.9 Gastro-esophageal reflux disease without esophagitis; N39.0 Urinary tract infection, site not specified; R79.89 Other specified abnormal findings of blood chemistry; R44.3 Hallucinations, unspecified; G47.00 Insomnia, unspecified; E87.6 Hypokalemia; F32.9 Major depressive disorder, single episode, unspecified; J45.909 Unspecified asthma, uncomplicated; F95.8 Other tic disorders; R19.7 Diarrhea, unspecified; M19.90 Unspecified osteoarthritis, unspecified site; G25.81 Restless legs syndrome; Z86.011 Personal history of benign neoplasm of the brain; R32 Unspecified urinary incontinence; Z90.710 Acquired absence of both cervix and uterus; Z87.891 Personal history of nicotine dependence; Z79.899 Other long term (current) drug therapy; Z79.82 Long term (current) use of aspirin
CPT/HCPCS: 96374; 96375; 99285; 36415; 93005; 93306; 80053; 80048; 84484; 85025 ×2; 85610; 85730; 81001; 71046; 93880; 70450; G0378 ×3; J2060; J0696

== ENCOUNTER → 2021-02-08 | Outpatient (CLI) | payer MEDICARE ==
--- NOTE | 2021-02-09 12:51 | MM ---
Reason for exam: screening (asymptomatic). Last mammogram was performed 3 years and 7 months ago. History: Patient is postmenopausal. Excisional biopsy of the right breast, April 10, 2007. Benign core biopsy of both breasts, 2002. Benign core biopsy of the right breast, 1989. Took hormonal contraceptives for 15 years beginning at age 19. Taking estrogen for 10 years beginning at age 53. Physical Findings: A clinical breast exam by your physician is recommended on an annual basis and results should be correlated with mammographic findings. MG 3D Screening Mammo W/Cad Bilateral CC and MLO view(s) were taken. Prior study comparison: June 25, 2017, bilateral MG 3d screening mammo w/cad. October 03, 2015, bilateral MG 3d screening mammo w/cad. The breast tissue is heterogeneously dense. This may lower the sensitivity of mammography. There are benign appearing round dystrophic calcifications bilaterally. Previous mammotome biopsy in the right and left breast. There is no discrete abnormality. ASSESSMENT: Benign, BI-RAD 2 RECOMMENDATION: Routine screening mammogram of both breasts in 1 year.
== END | disposition home or self-care (01) ==
LOC: RADMAMWWP 10:05
PROVIDERS: ATTEND Family Medicine
DX: Z12.31 Encounter for screening mammogram for malignant neoplasm of breast (principal); Z78.0 Asymptomatic menopausal state
CPT/HCPCS: 77063; 77067

== ENCOUNTER → 2021-04-05 | Outpatient (CLI) | payer MEDICARE ==
--- NOTE | 2021-04-05 17:13 | BD ---
EXAMINATION TYPE: Axial Bone Density DATE OF EXAM: 04/05/2021 COMPARISON: 07.11.2017 CLINICAL HISTORY: 75 YR OLD FEMALE....ICD-10 CODE: Z78.0 MENOPAUSAL Height: 59 Weight: 130 FRAX RISK QUESTIONS: Glucocorticoids (More than 3mos): YES (Ex: prednisone, prednisolone, methylprednisolone, dexamethasone, and hydrocortisone). 4. Malnutrition: Current Tobacco Use: QUIT 20 YRS AGO RISK FACTORS HISTORY OF: Postmenopausal woman: YES, AT AGE 52 TOTAL HYST Take estrogen and/or progesterone medications: YES ABOUT 5 YRS, NONE NOW Hyperparathyroidism: NO Adrenal Insufficiency: NO MEDICATIONS: Prednisone or other steroids: YES, ASTHMA, FOR ABOUT 30 YEARS, COPD , LIFE TIME SMOKER Additional Medications: BP MEDS, ANTI ANXIETY/DEPRESSANTS, REFLUX MEDS, VIT D AND CALCIUM, CHOLESTER OL MEDS, Additional History: HYPERTENSION, ANXIETY/DEPRESSION, REFLUX, CHOLESTEROL, SMOKER IN THE PAST ASTHMA/ COPD, EMPHYSEMA, EXAM MEASUREMENTS: Bone mineral densitometry was performed using the [employer] System. Bone mineral density as measured about the Lumbar spine is: ----- L1-L4(G/cm2): 0.994 T Score Values are as follows: ----- L1: -1.7 ----- L2: -1.4 ----- L3: -2.1 ----- L4: -1.1 ----- L1-L4: -1.5 Bone mineral density has: Decreased -7.0% SINCE: 07.11.2017 STUDY Bone mineral density about the R hip (g/cm2): 0.723 Bone mineral density about the L hip (g/cm2): 0.748 T Score values are as follows: -----R Neck: -2.2 -----L Neck: -2.1 -----R Total: -2.3 -----L Total: -2.1 Bone mineral density has: Decreased -10.0% SINCE: 07.11.2017 STUDY FRAX%s: THERE IS A 23.7% CHANCE FOR A MAJOR OSTEOPOROTIC FX AND A 9.0% FOR HIP......PROBABILITY FOR FX IN 10 YRS TIME IMPRESSION: Osteopenia (T Score between -2.5 and -1). There is slightly increased risk of fracture and the patient may be considered for treatment. Re-Screen 2-5 years. NOTE: T-SCORE=SD OF THE YOUNG ADULT MEAN.
== END | disposition home or self-care (01) ==
LOC: RADBDWWP 10:41
PROVIDERS: ATTEND Family Medicine
DX: M85.89 Other specified disorders of bone density and structure, multiple sites (principal); Z78.0 Asymptomatic menopausal state
CPT/HCPCS: 77080

== ENCOUNTER → 2022-05-09 | Outpatient (CLI) | payer MEDICARE ==
--- NOTE | 2022-05-09 09:09 | US ---
EXAMINATION TYPE: US liver DATE OF EXAM: 05/09/2022 COMPARISON: 10/27/2014 CLINICAL HISTORY: R94.5 ABNORMAL RESULTS OF LIVER FUNCTION. Abn liver function test. TECHNIQUE: Multiple sonographic images of the right upper quadrant are obtained. FINDINGS: EXAM MEASUREMENTS: Liver Length: 11.0 cm Gallbladder Wall: .4 cm CBD: .6 cm Right Kidney: 10 x 3.2 x 4.7 cm Pancreas: Tail obscured by overlying bowel gas Liver: wnl Gallbladder: 3 cm stone Evidence for sonographic Suresh's sign: No CBD: wnl Right Kidney: wnl IMPRESSION: 1. No evidence for acute process. 2. Cholelithiasis.
== END | disposition home or self-care (01) ==
LOC: RADUSWWP 08:15
PROVIDERS: ATTEND Internal Medicine Gastroenterology
DX: K80.20 Calculus of gallbladder without cholecystitis without obstruction (principal); R94.5 Abnormal results of liver function studies
CPT/HCPCS: 76705

== ENCOUNTER 2022-08-30 09:22 | Inpatient (IN) | payer MEDICARE ==
[2022-08-30] MEDS ORDERED: SODIUM CHLORIDE 0.9% 1,000 ML IV STA ×2 (09:41→12:21)
[2022-08-30] MEDS ORDERED: HYDROmorphone 0.5 MG/0.5 ML SYRINGE IVP STA ×2 (09:41→12:08)
[2022-08-30 09:52] LABS: Basophils % (A) 0 %; Eosinophils % (A) 0 %; HCT 45.2 % (34.0-46.0); HGB 14.5 gm/dL (11.4-16.0); Lymphocytes # (A) 0.6 k/uL (1.0-4.8); Lymphocytes % (A) 4 %; MCH 26.7 pg (25.0-35.0); MCV 83.4 fL (80.0-100.0); Mean Platelet Volume 6.9; Monocytes # (A) 0.7 k/uL (0-1.0); Monocytes % (A) 5 %; Neutrophils # (A) 12.1 k/uL (1.3-7.7); Neutrophils % (A) 90 %; Platelet Count 369 k/uL (150-450); RBC 5.43 m/uL (3.80-5.40); RDW 14.2 % (11.5-15.5); WBC 13.4 k/uL (3.8-10.6)
--- NOTE | 2022-08-30 10:02 | ED ---
Abdominal Pain HPI - General Chief Complaint: Abdominal Pain Stated Complaint: nausea, vomiting Time Seen by Provider: 08/30/22 09:23 Source: patient, RN notes reviewed Mode of arrival: ambulatory Limitations: no limitations - History of Present Illness Initial Comments: This is a 76-year-old female who presents to the emergency department for abdominal pain. States that 2 days ago, she ate pizza with pepperoni. States that the pepperoni was very greasy, and believes that this triggered a gallbladder attack. States she was diagnosed gallstones many years ago, but ended up not having surgery, and she cannot recall why. Pain is in the epigastric region. States over the last 2 days, she has also had ongoing nausea and vomiting. She was given Toradol and Zofran by EMS in route with minor improvement in symptoms. She has not had a bowel movement in 2 days and is not passing any gas. Denies any fevers, chills, sore throat, cough, dyspnea, chest pain, palpitations, diarrhea, back pain, or headaches. MD Complaint: abdominal pain Onset/Timin -: days(s) Location: epigastric - Related Data Home Medications Medication Instructions Recorded Confirmed RX: Esomeprazole Magnesium [NexIUM] 40 mg PO DAILY 10/12/14 08/30/22 RX: carBAMazepine [TEGretol] 200 mg PO DAILY 10/12/14 08/30/22 RX: Aspirin EC [Ecotrin Low Dose] 81 mg PO DAILY 12/06/16 08/30/22 RX: Montelukast [Singulair] 10 mg PO DAILY 12/06/16 08/30/22 RX: Oxybutynin Xl [Ditropan XL] 5 mg PO BID 12/06/16 08/30/22 RX: Losartan Potassium [Cozaar] 100 mg PO DAILY 02/03/20 08/30/22 ALPRAZolam [Xanax] 0.25 mg PO BID PRN 08/30/22 08/30/22 Albuterol Inhaler [Ventolin Hfa 2 puff INHALATION RT-Q6H PRN 08/30/22 08/30/22 Inhaler] Ascorbic Acid [Vitamin C] 500 mg PO DAILY 08/30/22 08/30/22 Calcium Carbonate [Calcium] 600 mg PO DAILY 08/30/22 08/30/22 Cholecalciferol [Vitamin D3 (25 25 mcg PO DAILY 08/30/22 08/30/22 Mcg = 1000 Iu)] Citalopram Hydrobromide [CeleXA] 40 mg PO DAILY 08/30/22 08/30/22 Cyanocobalamin (Vitamin B-12) 2,500 mcg PO DAILY 08/30/22 08/30/22 [Vitamin B-12] Ferrous Sulfate [Feosol] 325 mg PO DAILY 08/30/22 08/30/22 Fish Oil/Dha/Epa [Fish Oil 1,200 2 cap PO DAILY 08/30/22 08/30/22 mg Fish Oil] Magnesium 420 Mg 420 mg PO DAILY 08/30/22 08/30/22 Mv-Min/Folic/Vit K/Lut/Csku814 1 tab PO DAILY 08/30/22 08/30/22 [Alive Women's 50 Plus Tablet] Neuriva Brain Supplement 1 cap PO DAILY 08/30/22 08/30/22 RX: Vitamin A 2,400 mcg PO DAILY 08/30/22 08/30/22 Temazepam [Restoril] 30 mg PO HS 08/30/22 08/30/22 Travoprost [Travoprost 0.004%] 1 drop BOTH EYES HS 08/30/22 08/30/22 Vit C/E/Zn/Coppr/Lutein/Zeaxan 1 cap PO BID 08/30/22 08/30/22 [Preservision Areds 2 Softgel] amLODIPine [Norvasc] 10 mg PO DAILY 08/30/22 08/30/22 rOPINIRole HCL [Requip] 0.25 - 0.5 mg PO HS 08/30/22 08/30/22 Allergies Allergy/AdvReac Type Severity Reaction Status Date / Time No Known Allergies Allergy Verified 08/30/22 14:29 Review of Systems ROS Statement: Those systems with pertinent positive or pertinent negative responses have been documented in the HPI. ROS Other: All systems not noted in ROS Statement are negative. Past Medical History Past Medical History: Asthma, GERD/Reflux, Osteoarthritis (OA) Additional Past Medical History / Comment(s): collitis rls incontinence, mening ioma. History of Any Multi-Drug Resistant Organisms: None Reported Past Surgical History: Hysterectomy Past Psychological History: No Psychological Hx Reported Smoking Status: Former smoker Past Alcohol Use History: None Reported Past Drug Use History: None Reported General Exam Limitations: no limitations General appearance: alert, in no apparent distress Head exam: Present: atraumatic, normocephalic, normal inspection Respiratory exam: Present: normal lung sounds bilaterally. Absent: respiratory distress, wheezes, rales, rhonchi, stridor Cardiovascular Exam: Present: regular rate, normal rhythm, normal heart sounds. Absent: systolic murmur, diastolic murmur, rubs, gallop, clicks GI/Abdominal exam: Present: soft, tenderness (Epigastric), hypoactive bowel sounds. Absent: distended Neurological exam: Present: alert, oriented X3, CN II-XII intact Psychiatric exam: Present: normal affect, normal mood Skin exam: Present: warm, dry, intact, normal color. Absent: rash Course Vital Signs 08/30/22 08/30/22 08/30/22 09:27 11:29 14:11 Temperature 97.4 F L Pulse Rate 70 74 69 Respiratory 18 18 20 Rate Blood Pressure 122/56 123/71 144/79 O2 Sat by Pulse 96 99 95 Oximetry Medical Decision Making - Medical Decision Making This is a 76-year-old female who presents to the emergency department for abdominal pain. Was pt. sent in by a medical professional or institution? @ -No Did you speak to anyone other than the patient for history? @ -No Did you review nursing and triage notes? @ -Yes, and I agree, it is accurate with regards to the patient's symptoms. Were old charts reviewed? @ -Yes, liver US from 05/09/2022 revealing cholelithiasis. Differential Diagnosis? @ -Differential Abdominal Pain Women: Appendicitis, Cholecystitis, diverticulosis, ischemic bowel, pancreatitis, hepatitis, UTI, gastroenteritis, AAA, incarcerated hernia, bowel obstruction, constipation, inflammatory bowel, hepatitis, peptic ulcer disease, splenic infarction, perforated viscus, vulvitis, ovarian torsion, PID, kidney stone, placenta abruption, this is not meant to be an all-inclusive list EKG interpreted by me (3pts min.)? @ -EKG interpreted by me demonstrating the following: Sinus rhythm. Ventricular rate 72 beats per minute, UT interval 214 ms, QRS duration 76 ms, QTC 424 ms. X-rays interpreted by me (1pt min.)? @ -Not obtained CT interpreted by me (1pt min.)? @ -Computed tomography scan of the abdomen and pelvis obtained. My interpretation identifies dilation of the small bowel loops. U/S interpreted by me (1pt. min.)? @ -Not interpreted by me. What testing was considered but not performed? (CT, X-rays, U/S, labs)? Why? @ -None What meds were considered but not given? Why? @ -None Did you discuss the management of the patient with other professionals? @ -Yes, Dr. Seay, who advised IV abx, fluids, keeping the patient NPO, and an NG tube. Dr. García accepts the patient for admission. Did you reconcile home meds? @ -No Was smoking cessation discussed for >3mins.? @ -No Was critical care preformed (if so, how long)? @ -No Were there social determinants of health that impacted care today? How? (Homelessness, low income, unemployed, alcoholism, drug addiction, transpor tation, low edu. Level, literacy, decrease access to med. care, fdc, rehab)? @ -No Was there de-escalation of care discussed even if they declined? (Discuss DNR or withdrawal of care, Hospice)? @ -No What co-morbidities impacted this encounter? (DM, HTN, Smoking, COPD, CAD, Cancer, CVA, Hep., AIDS, mental health diagnosis, sleep apnea, morbid obesity)? @ -GERD Was patient admitted / discharged? @ -Admitted. Lab work obtained revealing leukocytosis and poor kidney function consistent with an ODALIS when compared with prior blood work. This is likely due to the patient's reported 2 days of nausea/vomiting. Lactic acid also mildly elevated at 2.5. We initially obtained a gallbladder ultrasound, however visualization was very limited due to overlying bowel gas. Computed tomography scan of the abdomen and pelvis was subsequently obtained. This revealed mul tiple dilated air-filled small bowel loops with air-fluid levels. The zone of transition has a round hyperdense area. Consideration of intussusception and mass were advised by radiology. Case discussed with Dr. Seay, who advised starting the patient on IV antibiotics, fluids, keeping her NPO, and placing an NG tube. She was initially given 2 L of IV fluids and started on maintenance fluids. She was also started on IV Zosyn with blood cultures obtained prior. NG tube was placed and hooked up to intermittent low wall suction. Patient kept NPO. She was admitted to medicine for further management with general surgery listed as consult. Undiagnosed new problem with uncertain prognosis? @ -None Drug Therapy requiring intensive monitoring for toxicity (Heparin, Nitro, Insulin, Cardizem)? @ -None Were any procedures done? @ -None Diagnosis/symptom? @ -Small bowel obstruction, ODALIS Acute, or Chronic, or Acute on Chronic? @ -Acute Uncomplicated (without systemic symptoms) or Complicated (systemic symptoms)? @ -Complicated Side effects of treatment? @ -None Exacerbation, Progression, or Severe Exacerbation] @ -Not applicable Poses a threat to life or bodily function? @ -Yes This case was discussed in detail with the attending ED physician, Dr. Angelo. Presentation, findings, and treatment plan discussed in detail as well. - Lab Data Result diagrams: 08/30/22 09:42 08/30/22 09:42 Lab Results 08/30/22 08/30/22 08/30/22 Range/Units 09:42 09:42 09:42 WBC 13.4 H (3.8-10.6) k/uL RBC 5.43 H (3.80-5.40) m/uL Hgb 14.5 (11.4-16.0) gm/dL Hct 45.2 (34.0-46.0) % MCV 83.4 (80.0-100.0) fL MCH 26.7 (25.0-35.0) pg MCHC 32.0 (31.0-37.0) g/dL RDW 14.2 (11.5-15.5) % Plt Count 369 (150-450) k/uL MPV 6.9 Neutrophils % 90 % Lymphocytes % 4 % Monocytes % 5 % Eosinophils % 0 % Basophils % 0 % Neutrophils # 12.1 H (1.3-7.7) k/uL Lymphocytes # 0.6 L (1.0-4.8) k/uL Monocytes # 0.7 (0-1.0) k/uL Eosinophils # 0.0 (0-0.7) k/uL Basophils # 0.0 (0-0.2) k/uL Sodium 138 (137-145) mmol/L Potassium 3.9 (3.5-5.1) mmol/L Chloride 97 L (98-107) mmol/L Carbon Dioxide 23 (22-30) mmol/L Anion Gap 18 mmol/L BUN 45 H (7-17) mg/dL Creatinine 1.78 H (0.52-1.04) mg/dL Est GFR (CKD-EPI)AfAm 31 (>60 ml/min/1.73 sqM) Est GFR (CKD-EPI)NonAf 27 (>60 ml/min/1.73 sqM) Glucose 138 H (74-99) mg/dL Lactic Ac Sepsis Rflx Plasma Lactic Acid Jose 2.5 H* (0.7-2.0) mmol/L Calcium 9.3 (8.4-10.2) mg/dL Total Bilirubin 0.7 (0.2-1.3) mg/dL AST 40 H (14-36) U/L ALT 27 (4-34) U/L Alkaline Phosphatase 171 H (38-126) U/L Troponin I (0.000-0.034) ng/mL Total Protein 7.8 (6.3-8.2) g/dL Albumin 4.8 (3.5-5.0) g/dL Amylase 74 (30-110) U/L Lipase 46 (23-300) U/L 08/30/22 08/30/22 Range/Units 09:42 10:05 WBC (3.8-10.6) k/uL RBC (3.80-5.40) m/uL Hgb (11.4-16.0) gm/dL Hct (34.0-46.0) % MCV (80.0-100.0) fL MCH (25.0-35.0) pg MCHC (31.0-37.0) g/dL RDW (11.5-15.5) % Plt Count (150-450) k/uL MPV Neutrophils % % Lymphocytes % % Monocytes % % Eosinophils % % Basophils % % Neutrophils # (1.3-7.7) k/uL Lymphocytes # (1.0-4.8) k/uL Monocytes # (0-1.0) k/uL Eosinophils # (0-0.7) k/uL Basophils # (0-0.2) k/uL Sodium (137-145) mmol/L Potassium (3.5-5.1) mmol/L Chloride (98-107) mmol/L Carbon Dioxide (22-30) mmol/L Anion Gap mmol/L BUN (7-17) mg/dL Creatinine (0.52-1.04) mg/dL Est GFR (CKD-EPI)AfAm (>60 ml/min/1.73 sqM) Est GFR (CKD-EPI)NonAf (>60 ml/min/1.73 sqM) Glucose (74-99) mg/dL Lactic Ac Sepsis Rflx Y Plasma Lactic Acid Jose (0.7-2.0) mmol/L Calcium (8.4-10.2) mg/dL Total Bilirubin (0.2-1.3) mg/dL AST (14-36) U/L ALT (4-34) U/L Alkaline Phosphatase (38-126) U/L Troponin I <0.012 (0.000-0.034) ng/mL Total Protein (6.3-8.2) g/dL Albumin (3.5-5.0) g/dL Amylase (30-110) U/L Lipase (23-300) U/L - Radiology Data Radiology results: report reviewed, image reviewed Disposition Clinical Impression: Small bowel obstruction, ODALIS (acute kidney injury) Disposition: ADMITTED IP TO THIS HOSP
[2022-08-30 10:04] LABS: ALT 27 U/L (4-34); AST 40 U/L (14-36); African American GFR (CKD) 31 (>60 ml/min/1.73 sqM); Albumin 4.8 g/dL (3.5-5.0); Alkaline Phosphatase 171 U/L (38-126); Amylase 74 U/L (30-110); Anion Gap 18 mmol/L; Blood Urea Nitrogen 45 mg/dL (7-17); Calcium 9.3 mg/dL (8.4-10.2); Carbon Dioxide 23 mmol/L (22-30); Chloride 97 mmol/L (98-107); Glucose 138 mg/dL (74-99); Lipase 46 U/L (23-300); Non-African American GFR(CKD) 27 (>60 ml/min/1.73 sqM); Potassium 3.9 mmol/L (3.5-5.1); Sodium 138 mmol/L (137-145); Total Bilirubin 0.7 mg/dL (0.2-1.3); Total Protein 7.8 g/dL (6.3-8.2)
--- NOTE | 2022-08-30 11:11 | US ---
EXAMINATION TYPE: US gallbladder DATE OF EXAM: 08/30/2022 COMPARISON: 05/09/2022 CLINICAL INDICATION: Female, 76 years old with history of Epigastric pain, known gallstones; Epigastr ic pain. Patient states she can't eat. TECHNIQUE: Multiple sonographic images of the right upper quadrant are obtained. FINDINGS: EXAM MEASUREMENTS: Liver Length: 10.3 cm Gallbladder Wall: 0.4 cm CBD: 0.5 cm Right Kidney: 9.1 x 4.0 x 4.5 cm [employer] ME[employer] NOTES:very limited due to overlying bowel gas Pancreas: Echogenic in appearance. Tail not well seen. Liver: wnl Gallbladder: Very limited visualization and not definitively seen. Evidence for sonographic Suresh's sign: neg CBD: wnl Right Kidney: No hydronephrosis or nephrolithiasis. There is a 2.1 cm hypoechoic lesion involving th e right kidney. IMPRESSION: 1. Limited exam as the pancreas and gallbladder are not well visualized. Remaining structures demonst rate no definite acute abnormality. 2. Cannot exclude a 2 cm right renal mass. Given limitations of this exam recommend CT scan of the ab domen.
[2022-08-30] MEDS ORDERED: MORPHINE SULFATE 4 MG/ML SYRINGE IM STA (12:07)
--- NOTE | 2022-08-30 12:32 | CT ---
EXAMINATION TYPE: CT abdomen pelvis wo con DATE OF EXAM: 08/30/2022 COMPARISON: None INDICATION: Epigastric pain DLP: 364.1 mGycm, Automated exposure control for dose reduction was used. CONTRAST: 0 mL of Isovue 300. Study performed without Oral Contrast TECHNIQUE: Axial images were obtained from above the diaphragm to the pubic rami in the axial plane a t 5 mm thick sections. Reconstructed images are reviewed on the computer in the coronal plane. FINDINGS: Limited CT sections are obtained the lung bases. The lung bases are clear. CT ABDOMEN: Liver: Normal Spleen: Normal Pancreas: Normal Adrenal glands: The adrenal glands are normal. Gallbladder: Normal Kidneys: No masses are evident. No hydronephrosis is present. No cysts are present. No renal stone s are evident. Aorta: Vascular calcification is within the aorta. Inferior vena cava: Normal. CT PELVIS: There are multiple dilated air-filled small bowel loops with air-fluid levels. This extends into the pelvis. Within the right posterior hemipelvis there is a round hyperdense area. This area appears to be just above the zone of transition. Consider intussusception within the differential. Underlying ma ss is within the differential. Example image sequence 201 image 55. Distal small bowel loops are deco mpressed. Colon is decompressed. Appendix: Normal as visualized. Urinary bladder: Normal. Genitourinary structures: Wrist and ovaries are not identified. Osseous structures: No suspicious lytic or sclerotic lesions are evident. Facet degenerative changes present. There is a sclerotic area within the L4 level which may be a bone island. IMPRESSIONS: 1. Small bowel obstruction. Zone of transition has a rounded hyperdense area. Consider intussuscepti on and mass within the differential. Report was called and case discussed with the emergency room emily cobos by Dr. Bull by telephone 1228 hours 08/30/2022 at the time of interpretation.
[2022-08-30] MEDS ORDERED: PIPERACILLIN-TAZOBACTAM 3.375 GM in SODIUM CHLORIDE 0.9% 100 ML IVPB STA (13:55)
[2022-08-30] MEDS ORDERED: ACETAMINOPHEN TAB 325 MG TAB PO PRN (14:06)
[2022-08-30] MEDS ORDERED: NALOXONE 0.4 MG/ML 1 ML VIAL IV PRN (14:06)
--- NOTE | 2022-08-30 14:52 | P.GSCN ---
History of Present Illness Consult date: 08/30/22 History of present illness: CHIEF COMPLAINT: Abdominal pain HISTORY OF PRESENT ILLNESS: This is a 76-year-old female who presented with abdominal pain across the lower abdomen and right upper quadrant pain since Friday evening. Patient reports symptoms started after eating pizza with pepperoni's. She is complaining of vomiting. Symptoms continued throughout the day yesterday and patient decided to come in this morning for further evaluation. Initially she thought it was her gallstones. Patient has had no flatus or bowel movement since Friday. She denies any prior history of bowel obstruction. Past surgical history includes hysterectomy. Last colonoscopy per patient was a few years ago which she reports it was negative. She had a computed tomography scan of abdomen and pelvis is showing a small bowel obstruction. Zone of transition has a rounded hyperdense area. Consider intussusception and mass within the differential. Patient admitted to the hospital with a small bowel obstruction. She did have some leukocytosis and elevated lactic acid level. PAST MEDICAL HISTORY: COPD, Asthma, GERD/Reflux, Osteoarthritis (OA), colitis PAST SURGICAL HISTORY: Hysterectomy, colonoscopy MEDICATIONS: See below ALLERGIES: See below SOCIAL HISTORY: No illicit drug use. REVIEW OF SYSTEMS: CONSTITUTIONAL: Denies fever or chills. HEENT: Denies blurred vision, vision changes, or eye pain. Denies hemoptysis CARDIOVASCULAR: Denies chest pain or pressure. RESPIRATORY: No shortness of breath. GASTROINTESTINAL: See HPI for pertinent findings HEMATOLOGIC: Denies bleeding disorders. GENITOURINARY: Denies any blood in urine or increased urinary frequency. SKIN: Denies pruitis. Denies rash. PHYSICAL EXAM: VITAL SIGNS: Reviewed GENERAL: Well-developed in no acute distress. HEENT: No sclera icterus. Extraocular movements grossly intact. Moist buccal mucosa. Head is atraumatic, normocephalic. No nasal drainage. ABDOMEN: Mildly distended. Tenderness to palpation of the lower abdomen and right upper quadrant NEUROLOGIC: Alert and oriented. Cranial nerves II through XII grossly intact. LABORATORY DATA: WBC 13.4 Hgb 14.5 platelets 369 Sodium is 138 potassium 3.9 creatinine 1.78 Lactic acid 2.5 Total bilirubin 0.7 AST 48 ALT 27 alk phos 171 Lipase 46 Troponin negative IMAGING: Computed tomography scan abdomen and pelvis small bowel obstruction. Zone of transition has a rounded hyperdense area. Consider intussusception and mass within the differential. Gallbladder normal. No kidney masses are evident. Gallbladder ultrasound limited exam as the pancreas and gallbladder not well visualized. Remaining structures demonstrate no definite acute abnormality. Cannot exclude a 2 cm right renal mass. Given the limitations of the exam recommend computed tomography scan of the abdomen ASSESSMENT: 1. Small bowel obstruction. Computed tomography scan report notes zone of transition has a rounded hyperdense area. Consider intussusception and mass within the differential 2. Abdominal pain 3. History of hysterectomy 4. Acute kidney injury PLAN: -NG tube to be placed for decompression -Keep patient nothing by mouth -Continue IV fluid -Continue IV antibiotics -Continue pain management -Continue antiemetics as needed Thank you for this consultation Physician Meat Apprentice note has been reviewed by physician. Signing provider agrees with the documented findings, assessment, and plan of care. Past Medical History Past Medical History: Asthma, GERD/Reflux, Osteoarthritis (OA) Additional Past Medical History / Comment(s): collitis rls incontinence, meningioma. History of Any Multi-Drug Resistant Organisms: None Reported Past Surgical History: Hysterectomy Past Psychological History: No Psychological Hx Reported Smoking Status: Former smoker Past Alcohol Use History: None Reported Past Drug Use History: None Reported Medications and Allergies Home Medications Medication Instructions Recorded Confirmed Type Esomeprazole Magnesium [NexIUM] 40 mg PO DAILY 10/12/14 02/03/20 History carBAMazepine [TEGretol] 200 mg PO DAILY 10/12/14 02/03/20 History Aspirin EC [Ecotrin Low Dose] 81 mg PO DAILY 12/06/16 02/03/20 History Montelukast [Singulair] 10 mg PO DAILY 12/06/16 02/03/20 History Oxybutynin Xl [Ditropan XL] 5 mg PO DAILY 12/06/16 02/03/20 History Losartan Potassium [Cozaar] 100 mg PO DAILY 02/03/20 02/03/20 History ALPRAZolam [Xanax] 0.25 mg PO BID PRN 08/30/22 08/30/22 History Albuterol Inhaler [Ventolin Hfa 2 puff INHALATION RT-Q6H PRN 08/30/22 08/30/22 History Inhaler] Ascorbic Acid [Vitamin C] 500 mg PO DAILY 08/30/22 08/30/22 History Calcium Carbonate [Calcium] 600 mg PO DAILY 08/30/22 08/30/22 History Cholecalciferol [Vitamin D3 (25 25 mcg PO DAILY 08/30/22 08/30/22 History Mcg = 1000 Iu)] Citalopram Hydrobromide [CeleXA] 40 mg PO DAILY 08/30/22 08/30/22 History Cyanocobalamin (Vitamin B-12) 2,500 mcg PO DAILY 08/30/22 08/30/22 History [Vitamin B-12] Ferrous Sulfate [Feosol] 325 mg PO DAILY 08/30/22 08/30/22 History Fish Oil/Dha/Epa [Fish Oil 1,200 2 cap PO DAILY 08/30/22 08/30/22 History mg Fish Oil] Magnesium 420 Mg 420 mg PO DAILY 08/30/22 08/30/22 History Mv-Min/Folic/Vit K/Lut/Qprn065 1 tab PO DAILY 08/30/22 08/30/22 History [Alive Women's 50 Plus Tablet] Neuriva Brain Supplement 1 cap PO DAILY 08/30/22 08/30/22 History Temazepam [Restoril] 30 mg PO HS 08/30/22 08/30/22 History Travoprost [Travoprost 0.004%] 1 drop BOTH EYES HS 08/30/22 08/30/22 History Vit C/E/Zn/Coppr/Lutein/Zeaxan 1 cap PO BID 08/30/22 08/30/22 History [Preservision Areds 2 Softgel] Vitamin A 2,400 mcg PO DAILY 08/30/22 08/30/22 History amLODIPine [Norvasc] 10 mg PO DAILY 08/30/22 08/30/22 History rOPINIRole HCL [Requip] 0.25 - 0.5 mg PO HS 08/30/22 08/30/22 History Allergies Allergy/AdvReac Type Severity Reaction Status Date / Time No Known Allergies Allergy Verified 08/30/22 14:29 Surgical - Exam Vital Signs Temp Pulse Resp BP Pulse Ox 97.4 F L 70 18 122/56 96 08/30/22 09:27 08/30/22 09:27 08/30/22 09:27 08/30/22 09:27 08/30/22 09:27 Results - Labs 08/30/22 09:42 08/30/22 09:42 Abnormal Lab Results - Last 24 Hours (Table) 08/30/22 08/30/22 08/30/22 Range/Units 09:42 09:42 09:42 WBC 13.4 H (3.8-10.6) k/uL RBC 5.43 H (3.80-5.40) m/uL Neutrophils # 12.1 H (1.3-7.7) k/uL Lymphocytes # 0.6 L (1.0-4.8) k/uL Chloride 97 L (98-107) mmol/L BUN 45 H (7-17) mg/dL Creatinine 1.78 H (0.52-1.04) mg/dL Glucose 138 H (74-99) mg/dL Plasma Lactic Acid Jose 2.5 H* (0.7-2.0) mmol/L AST 40 H (14-36) U/L Alkaline Phosphatase 171 H (38-126) U/L Diabetes panel 08/30/22 Range/Units 09:42 Sodium 138 (137-145) mmol/L Potassium 3.9 (3.5-5.1) mmol/L Chloride 97 L (98-107) mmol/L Carbon Dioxide 23 (22-30) mmol/L BUN 45 H (7-17) mg/dL Creatinine 1.78 H (0.52-1.04) mg/dL Glucose 138 H (74-99) mg/dL Calcium 9.3 (8.4-10.2) mg/dL AST 40 H (14-36) U/L ALT 27 (4-34) U/L Alkaline Phosphatase 171 H (38-126) U/L Total Protein 7.8 (6.3-8.2) g/dL Albumin 4.8 (3.5-5.0) g/dL Calcium panel 08/30/22 Range/Units 09:42 Calcium 9.3 (8.4-10.2) mg/dL Albumin 4.8 (3.5-5.0) g/dL Pituitary panel 08/30/22 Range/Units 09:42 Sodium 138 (137-145) mmol/L Potassium 3.9 (3.5-5.1) mmol/L Chloride 97 L (98-107) mmol/L Carbon Dioxide 23 (22-30) mmol/L BUN 45 H (7-17) mg/dL Creatinine 1.78 H (0.52-1.04) mg/dL Glucose 138 H (74-99) mg/dL Calcium 9.3 (8.4-10.2) mg/dL Adrenal panel 08/30/22 Range/Units 09:42 Sodium 138 (137-145) mmol/L Potassium 3.9 (3.5-5.1) mmol/L Chloride 97 L (98-107) mmol/L Carbon Dioxide 23 (22-30) mmol/L BUN 45 H (7-17) mg/dL Creatinine 1.78 H (0.52-1.04) mg/dL Glucose 138 H (74-99) mg/dL Calcium 9.3 (8.4-10.2) mg/dL Total Bilirubin 0.7 (0.2-1.3) mg/dL AST 40 H (14-36) U/L ALT 27 (4-34) U/L Alkaline Phosphatase 171 H (38-126) U/L Total Protein 7.8 (6.3-8.2) g/dL Albumin 4.8 (3.5-5.0) g/dL
[2022-08-30] MEDS: SODIUM CHLORIDE 0.9% 1,000 ML IV SCH (14:59)
[2022-08-30] MEDS: ONDANSETRON 4 MG/2 ML VIAL IVP PRN (15:11)
[2022-08-30] MEDS: HYDROmorphone 1 MG/ML 1 ML SYRINGE IVP PRN (15:11)
[2022-08-30] MEDS: PIPERACILLIN-TAZOBACTAM 3.375 GM in SODIUM CHLORIDE 0.9% 100 ML IVPB SCH (22:54)
[2022-08-30] MEDS: HYDROmorphone 0.5 MG/0.5 ML SYRINGE IVP PRN (22:54)
[2022-08-31] MEDS: SODIUM CHLORIDE 0.9% 1,000 ML IV SCH ×2 (04:07→20:41)
[2022-08-31] MEDS: HYDROmorphone 0.5 MG/0.5 ML SYRINGE IVP PRN ×2 (04:07→20:31)
--- NOTE | 2022-08-31 07:07 | P.PN ---
Progress Note - Text Progress Note Date: 08/31/22 The patient still has complaints of some abdominal pain. She has not had any flatus. On exam vital signs are stable. Abdomen soft nondistended with mild tenderness. Small bowel obstruction. Patient received nasogastric decompression. The patient may require exploratory laparotomy if her symptoms do not improve.
[2022-08-31] MEDS: PIPERACILLIN-TAZOBACTAM 3.375 GM in SODIUM CHLORIDE 0.9% 100 ML IVPB SCH ×2 (09:28→20:32)
[2022-08-31] MEDS: ONDANSETRON 4 MG/2 ML VIAL IVP PRN (09:28)
[2022-08-31 13:18] LABS: ALT 24 U/L (4-34); AST 37 U/L (14-36); African American GFR (CKD) 82 (>60 ml/min/1.73 sqM); Albumin 3.7 g/dL (3.5-5.0); Albumin/Globulin Ratio 1.4; Alkaline Phosphatase 128 U/L (38-126); Anion Gap 8 mmol/L; Blood Urea Nitrogen 39 mg/dL (7-17); Calcium 9.2 mg/dL (8.4-10.2); Carbon Dioxide 26 mmol/L (22-30); Chloride 106 mmol/L (98-107); Globulin 2.6 g/dL; Glucose 119 mg/dL (74-99); Non-African American GFR(CKD) 71 (>60 ml/min/1.73 sqM); Potassium 4.2 mmol/L (3.5-5.1); Sodium 140 mmol/L (137-145); Total Bilirubin 0.7 mg/dL (0.2-1.3); Total Protein 6.3 g/dL (6.3-8.2)
[2022-08-31 13:20] LABS: HCT 41.9 % (34.0-46.0); HGB 13.6 gm/dL (11.4-16.0); MCH 27.3 pg (25.0-35.0); MCHC 32.5 g/dL (31.0-37.0); MCV 83.9 fL (80.0-100.0); Mean Platelet Volume 8.4; Platelet Count 300 k/uL (150-450); RDW 14.4 % (11.5-15.5); WBC 4.9 k/uL (3.8-10.6)
--- NOTE | 2022-08-31 13:47 | P.PN ---
Progress Note - Text Progress Note Date: 08/31/22 I came to see patient on the medical floor. She stated that she remembered me from previous admission, and that I discharged her prematurely, she does not want to see me. Dr Leonardo was available and she agreed to take over the admission. I asked the community mental health social worker to switch the admission to her service.
[2022-08-31 14:08] LABS: Band Neutrophils % 7 %; Lymphocytes # (M) 0.54 k/uL (1.0-4.8); Monocytes # (M) 0.34 k/uL (0-1.0); Neutrophils % (M) 75 %; Nucleated Red Blood Cells 0 /100 WBC (0-0); Total Cells Counted 100
[2022-08-31 14:09] LABS: Toxic Vacuolation Present
[2022-08-31] MEDS ORDERED: ALPRAZolam 0.25 MG TAB PO STA (20:10)
[2022-09-01] MEDS: HYDROmorphone 0.5 MG/0.5 ML SYRINGE IVP PRN ×2 (03:05→09:01)
[2022-09-01] MEDS: SODIUM CHLORIDE 0.9% 1,000 ML IV SCH ×2 (03:09→08:46)
[2022-09-01] MEDS: PIPERACILLIN-TAZOBACTAM 3.375 GM in SODIUM CHLORIDE 0.9% 100 ML IVPB SCH ×3 (08:47→23:13)
[2022-09-01 09:18] LABS: HCT 41.7 % (37.2-46.3); HGB 13.1 d/dL (12.0-15.0); MCH 27.2 pg (27.0-32.0); MCHC 31.4 d/dL (32.0-37.0); MCV 86.7 FL (80.0-97.0); Mean Platelet Volume 9.2 FL (9.5-12.2); NRBC Per 100 WBC 0 X 10*3/uL (0.00-0.01); Platelet Count 340 X 10*3/uL (140-440); RBC 4.81 X 10*6/uL (4.10-5.20); RDW 14.6 % (11.5-14.5); WBC 7.19 X 10*3/uL (4.50-10.00)
[2022-09-01 09:47] LABS: ALT 22 U/L (8-44); AST 34 U/L (13-35); Albumin 4.1 d/dL (3.8-4.9); Albumin/Globulin Ratio 1.78 Ratio (1.60-3.17); Alkaline Phosphatase 115 U/L (41-126); BUN/Creat Ratio 43.62 Ratio (12.00-20.00); Blood Urea Nitrogen 34.9 mg/dL (9.0-27.0); Calcium 10.2 mg/dL (8.7-10.3); Carbon Dioxide 26.5 mmol/L (21.6-31.8); Chloride 107 mmol/L (96-109); Globulin 2.3 d/dL (1.6-3.3); Glucose 102 mg/dL (70-110); Potassium 4.3 mmol/L (3.5-5.5); Sodium 147 mmol/L (135-145); Total Bilirubin 0.4 mg/dL (0.3-1.2); Total Protein 6.4 d/dL (6.2-8.2)
--- NOTE | 2022-09-01 09:50 | P.PN ---
Progress Note - Text Progress Note Date: 09/01/22 Patient feels better. She's had some flatus. On exam vital signs appear stable. Abdomen soft there is minimal tenderness. There is no rebound or guarding. Resolving small bowel obstruction. Patient will have her nasogastric tube removed she will start on clear liquid diet.
[2022-09-01 09:58] LABS: Basophils # (A) 0.03 X 10*3/uL (0.00-0.10); Basophils % (A) 0.4 %; Eosinophils # (A) 0.02 X 10*3/uL (0.04-0.35); Eosinophils % (A) 0.3 %; Lymphocytes # (A) 0.96 X 10*3/uL (0.90-5.00); Lymphocytes % (A) 13.4 %; Monocytes % (A) 13.9 %; Neutrophils # (A) 5.17 X 10*3/uL (1.80-7.70); Neutrophils % (A) 71.9 %
--- NOTE | 2022-09-01 13:08 | P.HPIM ---
History of Present Illness H&P Date: 08/31/22 Chief Complaint: Abdominal pain 76-year-old female who presents to the emergency department for abdominal pain. States that 2 days ago, she ate pizza with pepperoni. States that the pepperoni was very greasy, and believes that this triggered a gallbladder attack. States she was diagnosed gallstones many years ago, but ended up not having surgery, and she cannot recall why. Pain is in the epigastric region. States over the last 2 days, she has also had ongoing nausea and vomiting. She was given Toradol and Zofran by EMS in route with minor improvement in symptoms. She has not had a bowel movement in 2 days and is not passing any gas. Computed tomography scan abdomen and pelvis small bowel obstruction. Zone of transition has a rounded hyperdense area. Consider intussusception and mass within the differential. Gallbladder normal. No kidney masses are evident. Gallbladder ultrasound limited exam as the pancreas and gallbladder not well visualized. Remaining structures demonstrate no definite acute abnormality. Cannot exclude a 2 cm right renal mass. Given the limitations of the exam recommend computed tomography scan of the abdomen Blood work completed in ED revealed the WBC 13.4, hemoglobin of 14.5 and platelet count of 369, sodium of 1. Potassium 3.9, BUN/creatinine of 45/1.78, lactic acid level of 2.5, AST slightly elevated at 40, amylase 74 and lipase normal at 46 Review of Systems REVIEW OF SYSTEMS: CONSTITUTIONAL: No fever, no malaise, no fatigue. HEENT: No recent visual problems or hearing problems. Denied any sore throat. CARDIOVASCULAR: No chest pain, orthopnea, PND, no palpitations, no syncope. PULMONARY: No shortness of breath, no cough, no hemoptysis. GASTROINTESTINAL: No diarrhea, no nausea, no vomiting, no abdominal pain. NEUROLOGICAL: No headaches, no weakness, no numbness. HEMATOLOGICAL: Denies any bleeding or petechiae. GENITOURINARY: Denies any burning micturition, frequency, or urgency. MUSCULOSKELETAL/RHEUMATOLOGICAL: Denies any joint pain, swelling, or any muscle pain. ENDOCRINE: Denies any polyuria or polydipsia. The rest of the 14-point review of systems is negative. Past Medical History Past Medical History: Asthma, GERD/Reflux, Osteoarthritis (OA) Additional Past Medical History / Comment(s): collitis rls incontinence, meningioma. History of Any Multi-Drug Resistant Organisms: None Reported Past Surgical History: Hysterectomy Past Psychological History: No Psychological Hx Reported Smoking Status: Never smoker Past Alcohol Use History: None Reported Past Drug Use History: None Reported Medications and Allergies Home Medications Medication Instructions Recorded Confirmed Type Esomeprazole Magnesium [NexIUM] 40 mg PO DAILY 10/12/14 08/30/22 History carBAMazepine [TEGretol] 200 mg PO DAILY 10/12/14 08/30/22 History Aspirin EC [Ecotrin Low Dose] 81 mg PO DAILY 12/06/16 08/30/22 History Montelukast [Singulair] 10 mg PO DAILY 12/06/16 08/30/22 History Oxybutynin Xl [Ditropan XL] 5 mg PO BID 12/06/16 08/30/22 History Losartan Potassium [Cozaar] 100 mg PO DAILY 02/03/20 08/30/22 History ALPRAZolam [Xanax] 0.25 mg PO BID PRN 08/30/22 08/30/22 History Albuterol Inhaler [Ventolin Hfa 2 puff INHALATION RT-Q6H PRN 08/30/22 08/30/22 History Inhaler] Ascorbic Acid [Vitamin C] 500 mg PO DAILY 08/30/22 08/30/22 History Calcium Carbonate [Calcium] 600 mg PO DAILY 08/30/22 08/30/22 History Cholecalciferol [Vitamin D3 (25 25 mcg PO DAILY 08/30/22 08/30/22 History Mcg = 1000 Iu)] Citalopram Hydrobromide [CeleXA] 40 mg PO DAILY 08/30/22 08/30/22 History Cyanocobalamin (Vitamin B-12) 2,500 mcg PO DAILY 08/30/22 08/30/22 History [Vitamin B-12] Ferrous Sulfate [Feosol] 325 mg PO DAILY 08/30/22 08/30/22 History Fish Oil/Dha/Epa [Fish Oil 1,200 2 cap PO DAILY 08/30/22 08/30/22 History mg Fish Oil] Magnesium 420 Mg 420 mg PO DAILY 08/30/22 08/30/22 History Mv-Min/Folic/Vit [id number] 1 tab PO DAILY 08/30/22 08/30/22 History [Alive Women's 50 Plus Tablet] Neuriva Brain Supplement 1 cap PO DAILY 08/30/22 08/30/22 History Temazepam [Restoril] 30 mg PO HS 08/30/22 08/30/22 History Travoprost [Travoprost 0.004%] 1 drop BOTH EYES HS 08/30/22 08/30/22 History Vit C/E/Zn/Coppr/Lutein/Zeaxan 1 cap PO BID 08/30/22 08/30/22 History [Preservision Areds 2 Softgel] Vitamin A 2,400 mcg PO DAILY 08/30/22 08/30/22 History amLODIPine [Norvasc] 10 mg PO DAILY 08/30/22 08/30/22 History rOPINIRole HCL [Requip] 0.25 - 0.5 mg PO HS 08/30/22 08/30/22 History Allergies Allergy/AdvReac Type Severity Reaction Status Date / Time No Known Allergies Allergy Verified 08/30/22 14:29 Physical Exam Vitals: Vital Signs Temp Pulse Pulse Resp BP BP Pulse Ox 08/31/22 08:14 98.0 F 86 17 158/84 95 08/31/22 02:00 98.0 F 79 17 148/65 94 L 08/30/22 21:55 97.8 F 87 18 154/77 93 L 08/30/22 21:13 72 16 179/69 92 L 08/30/22 17:16 71 22 122/69 95 08/30/22 14:11 69 20 144/79 95 Intake and Output 08/30/22 08/31/22 08/31/22 22:59 06:59 14:59 Output Total 800 Balance -800 Output: Urine 800 Other: Voiding Method Indwelling Catheter Indwelling Catheter Weight 53.977 kg 50.9 kg PHYSICAL EXAMINATION: GENERAL: The patient is alert and oriented x3, not in any acute distress. Well developed, well nourished. HEENT: Pupils are round and equally reacting to light. EOMI. No scleral icterus. No conjunctival pallor. Normocephalic, atraumatic. No pharyngeal erythema. No thyromegaly. CARDIOVASCULAR: S1 and S2 present. No murmurs, rubs, or gallops. PULMONARY: Chest is clear to auscultation, no wheezing or crackles. ABDOMEN: Soft, nontender, nondistended, normoactive bowel sounds. No palpable organomegaly. MUSCULOSKELETAL: No joint swelling or deformity. EXTREMITIES: No cyanosis, clubbing, or pedal edema. NEUROLOGICAL: Gross neurological examination did not reveal any focal deficits. SKIN: No rashes. Results CBC & Chem 7: 09/01/22 03:39 09/01/22 03:39 Labs: Abnormal Lab Results - Last 24 Hours (Table) 08/31/22 Range/Units 07:30 BUN 39 H (7-17) mg/dL Glucose 119 H (74-99) mg/dL AST 37 H (14-36) U/L Alkaline Phosphatase 128 H (38-126) U/L Thrombosis Risk Factor Assmnt - Choose All That Apply Each Risk Factor Represents 3 Points: Age 75 years or older Thrombosis Risk Factor Assessment Total Risk Factor Score: 3 Thrombosis Risk Factor Assessment Level: Moderate Risk Assessment and Plan Assessment: 1. Small bowel obstruction - CT of the abdomen completed in ED reveals a transition zone with intussusception and mass within the differential - Patient has an NG tube and to LAS; we will monitor strict DOROTHY's - Remains on IV fluids normal saline at a rate of 75 mL an hour - Patient is to be kept nothing by mouth - Placed on IV antibiotics, antiemetics and IV pain medication -- General surgery to do recommend further plan of care 2. Acute renal injury; IV fluids in form of normal saline at a rate of 75 mL an hour; we will monitor strict DOROTHY's, daily weights, renal function and electrolytes; avoid nephrotoxins and hypotension 3. Lactic acidosis; likely related to UTI and dehydration; continue with IV fluids and monitor lactic acid levels closely; patient has been placed on IV antibiotics in form of Zosyn at 3.375 g IV daily 4. Hypertension; patient takes amlodipine 10 mg daily and losartan 100 mg daily; we will keep on hold Oral intake is established; we will start patient on IV hydralazine as needed if blood pressure is elevated 5. Asthma; not in exacerbation; continue with home inhaler therapy as needed; patient takes Singulair at 10 mg daily 6. Restless leg syndrome; Requip 0.5 mg by mouth daily at bedtime 7. Anxiety/depression; Xanax 0.25 mg twice a day when necessary and Celexa 40 mg daily DVT prophylaxis; SCDs CODE STATUS; full code
[2022-09-01] MEDS: ONDANSETRON 4 MG/2 ML VIAL IVP PRN ×2 (16:52→23:12)
--- NOTE | 2022-09-01 17:40 | P.PN ---
Subjective Progress Note Date: 09/01/22 76-year-old female who presents to the emergency department for abdominal pain. States that 2 days ago, she ate pizza with pepperoni. States that the pepperoni was very greasy, and believes that this triggered a gallbladder attack. States she was diagnosed gallstones many years ago, but ended up not h aving surgery, and she cannot recall why. Pain is in the epigastric region. States over the last 2 days, she has also had ongoing nausea and vomiting. She was given Toradol and Zofran by EMS in route with minor improvement in symptoms. She has not had a bowel movement in 2 days and is not passing any gas. Computed tomography scan abdomen and pelvis small bowel obstruction. Zone of transition has a rounded hyperdense area. Consider intussusception and mass within the differential. Gallbladder normal. No kidney masses are evident. Gallbladder ultrasound limited exam as the pancreas and gallbladder not well visualized. Remaining structures demonstrate no definite acute abnormality. Cannot exclude a 2 cm right renal mass. Given the limitations of the exam recommend computed tomography scan of the abdomen Blood work completed in ED revealed the WBC 13.4, hemoglobin of 14.5 and plate let count of 369, sodium of 1. Potassium 3.9, BUN/creatinine of 45/1.78, lactic acid level of 2.5, AST slightly elevated at 40, amylase 74 and lipase normal at 46 -- Patient evaluated by general surgery and NG tube has been removed; patient does report passing some flatus with resolved abdominal pain - Patient is started on a clear liquid diet with resolving small bowel obstruction; plan to advance slowly tomorrow - Continue to monitor strict DOROTHY's and renal function Objective - Vital Signs Vital signs: Vital Signs Temp 98.5 F 09/01/22 14:30 Pulse 73 09/01/22 14:30 Resp 18 09/01/22 14:30 BP 147/75 09/01/22 14:30 Pulse Ox 96 09/01/22 14:30 FiO2 Intake & Output 08/31/22 09/01/22 09/01/22 18:59 06:59 18:59 Output Total 1200 1300 Balance -1200 -1300 Weight 50.9 kg Output: Gastric Drainage 900 1300 Urine 300 Uretheral ([place]) 300 Other: Voiding Method Indwelling Catheter Bedside Commode # Voids 2 1 - Exam PHYSICAL EXAMINATION: GENERAL: The patient is alert and oriented x3, not in any acute distress. Well developed, well nourished. HEENT: Pupils are round and equally reacting to light. EOMI. No scleral icterus. No conjunctival pallor. Normocephalic, atraumatic. No pharyngeal erythema. No thyromegaly. CARDIOVASCULAR: S1 and S2 present. No murmurs, rubs, or gallops. PULMONARY: Chest is clear to auscultation, no wheezing or crackles. ABDOMEN: Soft, nontender, nondistended, normoactive bowel sounds. No palpable organomegaly. MUSCULOSKELETAL: No joint swelling or deformity. EXTREMITIES: No cyanosis, clubbing, or pedal edema. NEUROLOGICAL: Gross neurological examination did not reveal any focal deficits. SKIN: No rashes. - Labs CBC & Chem 7: 09/01/22 03:39 09/01/22 03:39 Labs: Abnormal Lab Results - Last 24 Hours (Table) 09/01/22 09/01/22 Range/Units 03:39 03:39 MCHC 31.4 L (32.0-37.0) d/dL RDW 14.6 H (11.5-14.5) % MPV 9.2 L (9.5-12.2) FL Eosinophils # 0.02 L (0.04-0.35) X 10*3/uL Sodium 147 H (135-145) mmol/L Anion Gap 13.50 H (4.00-12.00) mmol/L BUN 34.9 H (9.0-27.0) mg/dL BUN/Creatinine Ratio 43.62 H (12.00-20.00) Ratio Microbiology - Last 24 Hours (Table) 08/30/22 14:50 Blood Culture - Preliminary Blood 08/30/22 14:35 Blood Culture - Preliminary Blood Assessment and Plan Assessment: 1. Small bowel obstruction - CT of the abdomen completed in ED reveals a transition zone with intussusception and mass within the differential - Patient has an NG tube and to LAS; we will monitor strict DOROTHY's - Remains on IV fluids normal saline at a rate of 75 mL an hour - Patient is to be kept nothing by mouth - Placed on IV antibiotics, antiemetics and IV pain medication -- General surgery to do recommend further plan of care 2. Acute renal injury; IV fluids in form of normal saline at a rate of 75 mL an hour; we will monitor strict DOROTHY's, daily weights, renal function and electrolytes; avoid nephrotoxins and hypotension 3. Lactic acidosis; likely related to UTI and dehydration; continue with IV fluids and monitor lactic acid levels closely; patient has been placed on IV antibiotics in form of Zosyn at 3.375 g IV daily 4. Hypertension; patient takes amlodipine 10 mg daily and losartan 100 mg daily; we will keep on hold Oral intake is established; we will start patient on IV hydralazine as needed if blood pressure is elevated 5. Asthma; not in exacerbation; continue with home inhaler therapy as needed; patient takes Singulair at 10 mg daily 6. Restless leg syndrome; Requip 0.5 mg by mouth daily at bedtime 7. Anxiety/depression; Xanax 0.25 mg twice a day when necessary and Celexa 40 mg daily DVT prophylaxis; SCDs CODE STATUS; full code
[2022-09-01] MEDS ORDERED: ALPRAZolam 0.25 MG TAB PO PRN (22:13)
[2022-09-02] MEDS: SODIUM CHLORIDE 0.9% 1,000 ML IV SCH ×3 (01:01→15:03)
[2022-09-02] MEDS: ONDANSETRON 4 MG/2 ML VIAL IVP PRN ×2 (05:38→11:51)
[2022-09-02] MEDS: HYDROmorphone 0.5 MG/0.5 ML SYRINGE IVP PRN ×3 (09:03→17:11)
[2022-09-02] MEDS: PIPERACILLIN-TAZOBACTAM 3.375 GM in SODIUM CHLORIDE 0.9% 100 ML IVPB SCH ×2 (09:07→17:07)
[2022-09-02] MEDS ORDERED: ALBUTEROL NEBULIZED 2.5 MG/3 ML INHALATION PRN (10:16)
[2022-09-02] MEDS ORDERED: PANTOPRAZOLE 40 MG TABLET PO SCH (10:30)
--- NOTE | 2022-09-02 11:14 | P.PN ---
Subjective Progress Note Date: 09/02/22 CHIEF COMPLAINT: Small bowel obstruction HISTORY OF PRESENT ILLNESS: Patient had NG tube removed yesterday and started on clear liquid diet. Since then she's had increase in abdominal pain across the lower abdomen and has been having nausea and vomiting. The emesis has been bile in color. She's had multiple episodes. And is only had tiny amount of flatus. No BM. She has a lot of belching. Afebrile WBC 7.19 Hgb 13.1 PHYSICAL EXAM: VITAL SIGNS: Reviewed. GENERAL: Well-developed in no acute distress. HEENT: No sclera icterus. Extraocular movements grossly intact. Moist buccal mucosa. Head is atraumatic, normocephalic. ABDOMEN: Soft. Mildly distended. Test palpation of the lower abdomen NEUROLOGIC: Alert and oriented. Cranial nerves II through XII grossly intact. ASSESSMENT: 1. Small bowel obstruction PLAN: -Patient having worsening abdominal pain. We'll make her nothing by mouth -Reinsert NG tube for decompression -Patient scheduled for Exploratory laparotomy tomorrow, 09/03/[address] Seay -Continue supportive care Physician Business Banking Officer note has been reviewed by physician. Signing provider agrees with the documented findings, assessment, and plan of care. Objective - Vital Signs Vital signs: Vital Signs Temp 98.2 F 09/02/22 07:15 Pulse 79 09/02/22 07:15 Resp 18 09/02/22 07:15 BP 149/76 09/02/22 07:15 Pulse Ox 97 09/02/22 07:15 FiO2 Intake & Output 09/01/22 09/02/22 09/02/22 18:59 06:59 18:59 Output Total 275 Balance -275 Output: Emesis 275 Other: Voiding Method Bedside Commode # Voids 1 4 - Labs CBC & Chem 7: 09/01/22 03:39 09/01/22 03:39 Labs: Microbiology - Last 24 Hours (Table) 08/30/22 14:50 Blood Culture - Preliminary Blood 08/30/22 14:35 Blood Culture - Preliminary Blood
[2022-09-02] MEDS: PANTOPRAZOLE 40 MG/10 ML VIAL IVP SCH (11:44)
[2022-09-02 13:16] VITALS: BMI 21.9
--- NOTE | 2022-09-02 13:45 | P.PN ---
Subjective Progress Note Date: 09/02/22 76-year-old female who presents to the emergency department for abdominal pain. States that 2 days ago, she ate pizza with pepperoni. States that the pepperoni was very greasy, and believes that this triggered a gallbladder attack. States she was diagnosed gallstones many years ago, but ended up not h aving surgery, and she cannot recall why. Pain is in the epigastric region. States over the last 2 days, she has also had ongoing nausea and vomiting. She was given Toradol and Zofran by EMS in route with minor improvement in symptoms. She has not had a bowel movement in 2 days and is not passing any gas. Computed tomography scan abdomen and pelvis small bowel obstruction. Zone of transition has a rounded hyperdense area. Consider intussusception and mass within the differential. Gallbladder normal. No kidney masses are evident. Gallbladder ultrasound limited exam as the pancreas and gallbladder not well visualized. Remaining structures demonstrate no definite acute abnormality. Cannot exclude a 2 cm right renal mass. Given the limitations of the exam recommend computed tomography scan of the abdomen Blood work completed in ED revealed the WBC 13.4, hemoglobin of 14.5 and plate let count of 369, sodium of 1. Potassium 3.9, BUN/creatinine of 45/1.78, lactic acid level of 2.5, AST slightly elevated at 40, amylase 74 and lipase normal at 46 -- Patient evaluated by general surgery and NG tube has been removed; patient does report passing some flatus with resolved abdominal pain - Patient is started on a clear liquid diet with resolving small bowel obstruction; plan to advance slowly tomorrow - Continue to monitor strict DOROTHY's and renal function 09/02. Patient seen and examined. Patient having worsening abdominal pain, also having nausea and vomiting. REVIEW OF SYSTEMS: CONSTITUTIONAL: No fever, no malaise,. CARDIOVASCULAR: No chest pain, no palpitations, no syncope. PULMONARY: No shortness of breath, no cough, GASTROINTESTINAL: As mentioned above NEUROLOGICAL: No headaches, no weakness, PHYSICAL EXAMINATION: GENERAL: The patient is alert and oriented x3, not in any acute distress. Well developed, well nourished. HEENT: Pupils are round and equally reacting to light. EOMI. No scleral icterus. No conjunctival pallor. Normocephalic, atraumatic. No pharyngeal erythema. No thyromegaly. CARDIOVASCULAR: S1 and S2 present. No murmurs, rubs, or gallops. PULMONARY: Chest is clear to auscultation, no wheezing or crackles. ABDOMEN: Soft, nontender, nondistended, normoactive bowel sounds. No palpable organomegaly. MUSCULOSKELETAL: No joint swelling or deformity. EXTREMITIES: No cyanosis, clubbing, or pedal edema. NEUROLOGICAL: Gross neurological examination did not reveal any focal deficits. SKIN: No rashes. Assessment and plan 1. Small bowel obstruction - CT of the abdomen completed in ED reveals a transition zone with intussusception and mass within the differential - Patient has an NG tube which was removed. Make patient nothing by mouth, NG tube per surgery - Remains on IV fluids normal saline at a rate of 75 mL an hour Follow-up on surgery recommendations 2. Acute renal injury; IV fluids in form of normal saline at a rate of 75 mL an hour; we will monitor strict DOROTHY's, daily weights, renal function and electrolytes; avoid nephrotoxins and hypotension 3. Lactic acidosis; continue with IV fluids and monitor lactic acid levels closely; patient has been placed on IV antibiotics in form of Zosyn at 3.375 g IV daily 4. Hypertension; patient takes amlodipine 10 mg daily and losartan 100 mg daily; resume Norvasc for now 5. Asthma; not in exacerbation; continue with home inhaler therapy as needed; patient takes Singulair at 10 mg daily 6. Restless leg syndrome; Requip 0.5 mg by mouth daily at bedtime 7. Anxiety/depression; Xanax 0.25 mg twice a day when necessary and Celexa 40 mg daily Labs and medication were reviewed.. Continue same treatment. Continue with symptomatic treatment. Resume home medication. Monitor labs and vitals. DVT and GI prophylaxis. Further recommendations as per clinical course of the patient Objective - Vital Signs Vital signs: Vital Signs Temp 98.2 F 09/02/22 07:15 Pulse 79 09/02/22 07:15 Resp 18 09/02/22 07:15 BP 149/76 09/02/22 07:15 Pulse Ox 97 09/02/22 07:15 FiO2 Intake & Output 09/01/22 09/02/22 09/02/22 18:59 06:59 18:59 Output Total 275 Balance -275 Output: Emesis 275 Other: Voiding Method Bedside Commode # Voids 1 4 - Labs CBC & Chem 7: 09/01/22 03:39 09/01/22 03:39 Labs: Microbiology - Last 24 Hours (Table) 08/30/22 14:50 Blood Culture - Preliminary Blood 08/30/22 14:35 Blood Culture - Preliminary Blood
[2022-09-02] MEDS: carBAMazepine 200 MG TAB PO SCH (14:24)
[2022-09-02] MEDS: MONTELUKAST 10 MG TAB PO SCH (14:24)
[2022-09-02] MEDS: CITALOPRAM HYDROBROMIDE 20 MG TAB PO SCH (14:24)
[2022-09-02] MEDS: amLODIPine 10 MG TAB PO SCH (14:24)
--- NOTE | 2022-09-02 14:40 | XR ---
EXAMINATION TYPE: XR abdomen 1V DATE OF EXAM: 09/02/2022 COMPARISON: NONE HISTORY: None TECHNIQUE: One view abdominal series FINDINGS: The osseous structures are intact. The bowel gas pattern is nonspecific. There remain multiple dilat ed small bowel loops. The NG tube is coiled back within the esophagus. Lower abdomen and pelvis not i ncluded. Lung bases clear. Chronic rib deformities are noted. IMPRESSION: 1. NG tube is coiled back upon itself within the esophagus and should be repositioned.
--- NOTE | 2022-09-02 15:39 | XR ---
EXAMINATION TYPE: XR abdomen 1V DATE OF EXAM: 09/02/2022 HISTORY: Pain. Technique: 1 views of the abdomen is submitted. Comparison: None. Findings: NG tube is identified within the dilated stomach There is no convincing evidence of pneumoperitoneum. Dilated small bowel noted. No mass effects are noted. No renal calcifications are identified. IMPRESSION: 1. NG tube as discussed
[2022-09-02] MEDS: OXYBUTYNIN XL 5 MG TAB.ER.24 PO SCH (20:48)
[2022-09-03] MEDS: PIPERACILLIN-TAZOBACTAM 3.375 GM in SODIUM CHLORIDE 0.9% 100 ML IVPB SCH ×3 (00:16→17:35)
[2022-09-03] MEDS: SODIUM CHLORIDE 0.9% 1,000 ML IV SCH ×2 (00:16→12:53)
[2022-09-03 06:26] LABS: Basophils % (A) 0 %; Eosinophils % (A) 0 %; HCT 40.9 % (34.0-46.0); Lymphocytes % (A) 10 %; MCH 27.4 pg (25.0-35.0); MCHC 31.7 g/dL (31.0-37.0); MCV 86.5 fL (80.0-100.0); Mean Platelet Volume 7.4; Monocytes # (A) 0.9 k/uL (0-1.0); Monocytes % (A) 9 %; Neutrophils # (A) 8.1 k/uL (1.3-7.7); Neutrophils % (A) 80 %; Platelet Count 300 k/uL (150-450); RBC 4.73 m/uL (3.80-5.40); RDW 14.2 % (11.5-15.5); WBC 10.2 k/uL (3.8-10.6)
[2022-09-03 06:33] LABS: INR 1.3 (<1.2); Prothrombin Time 13.6 sec (9.0-12.0)
[2022-09-03 06:44] LABS: African American GFR (CKD) 62 (>60 ml/min/1.73 sqM); Anion Gap 10 mmol/L; Blood Urea Nitrogen 43 mg/dL (7-17); Calcium 9.1 mg/dL (8.4-10.2); Carbon Dioxide 25 mmol/L (22-30); Chloride 106 mmol/L (98-107); Glucose 95 mg/dL (74-99); Non-African American GFR(CKD) 54 (>60 ml/min/1.73 sqM); Potassium 3.8 mmol/L (3.5-5.1); Sodium 141 mmol/L (137-145)
[2022-09-03] MEDS ORDERED: NON FORMULARY DRUG (Fish Oil/Dha/Epa [Fish Oil 1,200 Mg Fish Oil] 1 EACH Capsule) PO SCH (09:00)
[2022-09-03] MEDS: ASPIRIN 81 MG PO SCH (09:23)
[2022-09-03] MEDS: CALCIUM CARBONATE 500 MG CHEWABLE PO SCH (09:23)
[2022-09-03] MEDS ORDERED: IV FLUID CONTINUATION 450 ML IV ONE (10:00)
[2022-09-03] MEDS ORDERED: IV FLUID CONTINUATION 100 ML IV ONE (10:00)
[2022-09-03] MEDS: ONDANSETRON 4 MG/2 ML VIAL IVP PRN (10:28)
[2022-09-03] MEDS ORDERED: HEPARIN SODIUM,PORCINE/PF 5,000 UNIT/0.5 ML SYRINGE SQ ONE (10:50)
[2022-09-03] MEDS ORDERED: LIDOCAINE 2% INJ 20 MG/ML (2 ML VIAL) ONE (11:15)
[2022-09-03] MEDS ORDERED: ROCURONIUM 10 MG/ML (5 ML VIAL) IV ONE (11:15)
[2022-09-03] MEDS ORDERED: HYDROmorphone (PF) 1 MG/ML ONE (11:15)
[2022-09-03] MEDS ORDERED: fentaNYL (PF) 50 MCG/ML 2 ML AMP ONE (11:15)
[2022-09-03] MEDS ORDERED: GLYCOPYRROLATE 0.2 MG/ML 2 ML VIAL ONE (11:15)
[2022-09-03] MEDS ORDERED: SUCCINYLCHOLINE CHLORIDE 200 MG/10 ML VIAL IV ONE (11:15)
[2022-09-03] MEDS ORDERED: NEOSTIGMINE 1 MG/ML 10 ML VIAL ONE (11:15)
[2022-09-03] MEDS ORDERED: PROPOFOL 10 MG/ML 20 ML VIAL IV ONE (11:15)
[2022-09-03] MEDS ORDERED: MIDAZOLAM 2 MG/2 ML VIAL ONE (11:15)
[2022-09-03] MEDS ORDERED: PHENYLEPHRINE 10 MG/ML VIAL ONE (11:15)
[2022-09-03] MEDS: PANTOPRAZOLE 40 MG/10 ML VIAL IVP SCH (11:26)
[2022-09-03] MEDS: CYANOCOBALAMIN 500 MCG TAB PO SCH (11:27)
[2022-09-03] MEDS: MONTELUKAST 10 MG TAB PO SCH (11:27)
[2022-09-03] MEDS: FERROUS SULFATE 325 MG TAB PO SCH (12:11)
--- NOTE | 2022-09-03 12:25 | P.OP ---
Date of Procedure: 09/03/22 Preoperative Diagnosis: Small bowel obstruction Postoperative Diagnosis: Small bowel traction Gallstone ileus Procedure(s) Performed: Small bowel enterotomy with removal of large gallstone Partial omentectomy Lysis of adhesions Anesthesia: DONELL Surgeon: Blaine Seay Estimated Blood Loss (ml): 20 Pathology: other (Omentum, gallstone) Condition: stable Disposition: PACU Description of Procedure: The patient's placed on the operating table in the supine position. She recei bill general endotracheal tube anesthesia. Her abdomen was prepped and draped usual sterile fashion. The abdomen was entered through a low midline incision. There were adhesions to the omentum these were lysed with sharp dissection. A portion of the omentum was sent for pathology. The small bowel was visualized. The small bowel to be appeared to be proximate dilated. The small bowel was run down towards the ileum and there was a obstruction of the small bowel seen in the distal third of the small bowel. The obstruction appeared to be mobile within the lumen of the small bowel. At this point the small bowel was clamped proximally distally. An enterotomy is made. An oval shaped foreign body was removed. It measured approximately 4 x 3 cm. It had the appearance of a gallstone. The specimen was sent to pathology. The enterotomy was then closed with 3-0 GI silk suture. There was no evidence of any leakage at the enterotomy repair. The abdomen was irrigated. There is no bleeding seen. The fascia was then closed with looped #1 PDS suture. The skin was then closed hernan. Patient top she will was sent to recovery in stable condition.
[2022-09-03] MEDS: HYDROmorphone 0.5 MG/0.5 ML SYRINGE IVP PRN ×2 (12:53→15:50)
--- NOTE | 2022-09-03 14:39 | P.PN ---
Subjective Progress Note Date: 09/03/22 76-year-old female who presents to the emergency department for abdominal pain. States that 2 days ago, she ate pizza with pepperoni. States that the pepperoni was very greasy, and believes that this triggered a gallbladder attack. States she was diagnosed gallstones many years ago, but ended up not h aving surgery, and she cannot recall why. Pain is in the epigastric region. States over the last 2 days, she has also had ongoing nausea and vomiting. She was given Toradol and Zofran by EMS in route with minor improvement in symptoms. She has not had a bowel movement in 2 days and is not passing any gas. Computed tomography scan abdomen and pelvis small bowel obstruction. Zone of transition has a rounded hyperdense area. Consider intussusception and mass within the differential. Gallbladder normal. No kidney masses are evident. Gallbladder ultrasound limited exam as the pancreas and gallbladder not well visualized. Remaining structures demonstrate no definite acute abnormality. Cannot exclude a 2 cm right renal mass. Given the limitations of the exam recommend computed tomography scan of the abdomen Blood work completed in ED revealed the WBC 13.4, hemoglobin of 14.5 and plate let count of 369, sodium of 1. Potassium 3.9, BUN/creatinine of 45/1.78, lactic acid level of 2.5, AST slightly elevated at 40, amylase 74 and lipase normal at 46 -- Patient evaluated by general surgery and NG tube has been removed; patient does report passing some flatus with resolved abdominal pain - Patient is started on a clear liquid diet with resolving small bowel obstruction; plan to advance slowly tomorrow - Continue to monitor strict DOROTHY's and renal function 09/02. Patient seen and examined. Patient having worsening abdominal pain, also having nausea and vomiting. 09/03. Patient seen and examined. Labs done today WBC 10.2, hemoglobin 13, platelet count 300, sodium 141, potassium 3.8, BUN 43, creatinine 1.02 REVIEW OF SYSTEMS: CONSTITUTIONAL: No fever, no malaise,. CARDIOVASCULAR: No chest pain, no palpitations, no syncope. PULMONARY: No shortness of breath, no cough, GASTROINTESTINAL: As mentioned above NEUROLOGICAL: No headaches, no weakness, PHYSICAL EXAMINATION: GENERAL: The patient is alert and oriented x3, not in any acute distress. Well developed, well nourished. HEENT: Pupils are round and equally reacting to light. EOMI. No scleral icterus. No conjunctival pallor. Normocephalic, atraumatic. No pharyngeal erythema. No thyromegaly. CARDIOVASCULAR: S1 and S2 present. No murmurs, rubs, or gallops. PULMONARY: Chest is clear to auscultation, no wheezing or crackles. ABDOMEN: Tender, diminished bowel sounds. No palpable organomegaly. MUSCULOSKELETAL: No joint swelling or deformity. EXTREMITIES: No cyanosis, clubbing, or pedal edema. NEUROLOGICAL: Gross neurological examination did not reveal any focal deficits. SKIN: No rashes. Assessment and plan 1. Small bowel obstruction - CT of the abdomen completed in ED reveals a transition zone with intussusception and mass within the differential Keep patient nothing by mouth Continue NG tube - Remains on IV fluids normal saline at a rate of 75 mL an hour Follow-up on surgery recommendations, patient scheduled for exploratory laparotomy today 2. Acute renal injury; IV fluids in form of normal saline at a rate of 75 mL an hour; we will monitor strict DOROTHY's, daily weights, renal function and electrolytes; avoid nephrotoxins and hypotension 3. Lactic acidosis; continue with IV fluids and monitor lactic acid levels closely; patient has been placed on IV antibiotics in form of Zosyn at 3.375 g IV daily 4. Hypertension; patient takes amlodipine 10 mg daily and losartan 100 mg daily; resume Norvasc for now 5. Asthma; not in exacerbation; continue with home inhaler therapy as needed; patient takes Singulair at 10 mg daily 6. Restless leg syndrome; Requip 0.5 mg by mouth daily at bedtime 7. Anxiety/depression; Xanax 0.25 mg twice a day when necessary and Celexa 40 mg daily Labs and medication were reviewed.. Continue same treatment. Continue with symptomatic treatment. Resume home medication. Monitor labs and vitals. DVT and GI prophylaxis. Further recommendations as per clinical course of the patient Objective - Vital Signs Vital signs: Vital Signs Temp 98.0 F 09/03/22 07:25 Pulse 102 H 09/03/22 07:25 Resp 19 09/03/22 07:25 BP 132/76 09/03/22 07:25 Pulse Ox 97 09/03/22 07:25 FiO2 Intake & Output 09/02/22 09/03/22 09/03/22 18:59 06:59 18:59 Output Total 1900 1050 Balance -1900 -1050 Weight 50.9 kg Output: Gastric Drainage 1899 1050 Other: Voiding Method Bedside Commode # Voids 3 2 - Labs CBC & Chem 7: 09/03/22 05:39 09/03/22 05:39 Labs: Abnormal Lab Results - Last 24 Hours (Table) 09/03/22 09/03/22 09/03/22 Range/Units 05:35 05:39 05:39 Neutrophils # 8.1 H (1.3-7.7) k/uL PT 13.6 H (9.0-12.0) sec INR 1.3 H (<1.2) BUN 43 H (7-17) mg/dL Microbiology - Last 24 Hours (Table) 08/30/22 14:50 Blood Culture - Preliminary Blood 08/30/22 14:35 Blood Culture - Preliminary Blood
--- NOTE | 2022-09-03 15:13 | P.PN ---
Subjective Progress Note Date: 09/03/22 CHIEF COMPLAINT: Small bowel obstruction HISTORY OF PRESENT ILLNESS: Patient continues to have abdominal pain. She has NG tube in place with over a liter output through the night. She denies any flatus or bowel movement. She does report improvement in her symptoms after the NG tube was replaced. Afebrile. WBC 10.2 hgb 13 platelets 300 INR 1.3 sodium is 141 potassium 3.8 creatinine of 1.02 PHYSICAL EXAM: VITAL SIGNS: Reviewed. GENERAL: Well-developed in no acute distress. HEENT: No sclera icterus. Extraocular movements grossly intact. Moist buccal mucosa. Head is atraumatic, normocephalic. ABDOMEN: Soft. Tenderness with palpation across lower abdomen NEUROLOGIC: Alert and oriented. Cranial nerves II through XII grossly intact. ASSESSMENT: 1. Small bowel obstruction PLAN: -Patient scheduled for exploratory laparotomy today with Dr. Seay -Continue NG tube for decompression -Keep patient nothing by mouth -Continue supportive care Physician Learning Support Resource Room Teacher note has been reviewed by physician. Signing provider agrees with the documented findings, assessment, and plan of care. Objective - Vital Signs Vital signs: Vital Signs Temp 97.6 F 09/03/22 10:00 Pulse 71 09/03/22 10:00 Resp 16 09/03/22 10:00 BP 141/96 09/03/22 10:00 Pulse Ox 93 L 09/03/22 10:00 FiO2 Intake & Output 09/02/22 09/03/22 09/03/22 18:59 06:59 18:59 Output Total 1900 1050 75 Balance -1900 -1050 -75 Weight 50.9 kg Output: Gastric Drainage 1900 1050 Urine 75 Other: Voiding Method Bedside Commode Bedside Commode # Voids 3 2 - Labs CBC & Chem 7: 09/03/22 05:39 09/03/22 05:39 Labs: Abnormal Lab Results - Last 24 Hours (Table) 09/03/22 09/03/22 09/03/22 Range/Units 05:35 05:39 05:39 Neutrophils # 8.1 H (1.3-7.7) k/uL PT 13.6 H (9.0-12.0) sec INR 1.3 H (<1.2) BUN 43 H (7-17) mg/dL Microbiology - Last 24 Hours (Table) 08/30/22 14:50 Blood Culture - Preliminary Blood 08/30/22 14:35 Blood Culture - Preliminary Blood
[2022-09-03] MEDS: carBAMazepine 200 MG TAB PO SCH (16:21)
[2022-09-03] MEDS: OXYBUTYNIN XL 5 MG TAB.ER.24 PO SCH ×2 (16:21→22:56)
[2022-09-03] MEDS: amLODIPine 10 MG TAB PO SCH (16:21)
[2022-09-03] MEDS: CITALOPRAM HYDROBROMIDE 20 MG TAB PO SCH (16:21)
--- NOTE | 2022-09-03 17:41 | XR ---
EXAMINATION TYPE: XR chest 1V DATE OF EXAM: 09/03/2022 5:06 PM COMPARISON: Chest radiographs from 02/03/2020 TECHNIQUE: XR chest 1V Frontal view of the chest. CLINICAL INDICATION:Female, 76 years old with history of Ng tube placement; FINDINGS: Lungs/Pleura: There is no evidence of pleural effusion, focal consolidation, or pneumothorax. Pulmonary vascularity: Unremarkable. Heart/mediastinum: Cardiomediastinal silhouette is unremarkable. Musculoskeletal: No acute osseous pathology. Other findings: None Lines/Tubes: Nasogastric tube projects over the proximal esophagus consider advancement 25 cm for optimal placemen t. IMPRESSION: Nasogastric tube projects over the proximal esophagus consider advancement 25 cm for optimal placemen t.
--- NOTE | 2022-09-03 19:31 | XR ---
EXAMINATION TYPE: XR chest 1V DATE OF EXAM: 09/03/2022 7:26 PM COMPARISON: Chest radiographs from same day TECHNIQUE: XR chest 1V Frontal view of the chest. CLINICAL INDICATION:Female, 76 years old with history of NG tube placement; FINDINGS: Lungs/Pleura: There is no evidence of pleural effusion, focal consolidation, or pneumothorax. Skinfo ld noted over the right lung. Pulmonary vascularity: Unremarkable. Heart/mediastinum: Cardiomediastinal silhouette is unremarkable. Musculoskeletal: No acute osseous pathology. Other findings: None Lines/Tubes: Nasogastric tube with its distal tip and side-port projecting under the diaphragm and projecting over the gastric lumen. IMPRESSION: 1. No acute cardiopulmonary disease/process. 2. Nasogastric tube in appropriate position.
[2022-09-03] MEDS: HYDROmorphone 1 MG/ML 1 ML SYRINGE IVP PRN (20:46)
[2022-09-03] MEDS: ALPRAZolam 0.25 MG TAB PO PRN (22:56)
[2022-09-04] MEDS: PIPERACILLIN-TAZOBACTAM 3.375 GM in SODIUM CHLORIDE 0.9% 100 ML IVPB SCH ×4 (00:01→23:44)
[2022-09-04] MEDS: SODIUM CHLORIDE 0.9% 1,000 ML IV SCH ×4 (06:10→23:46)
[2022-09-04 08:26] LABS: HGB 12.8 gm/dL (11.4-16.0); Hypochromasia Slight; MCH 27.7 pg (25.0-35.0); MCHC 31.3 g/dL (31.0-37.0); MCV 88.7 fL (80.0-100.0); Mean Platelet Volume 7.1; Platelet Count 304 k/uL (150-450); RBC 4.62 m/uL (3.80-5.40); RDW 14.2 % (11.5-15.5); WBC 8.5 k/uL (3.8-10.6)
[2022-09-04 08:43] LABS: African American GFR (CKD) >90 (>60 ml/min/1.73 sqM); Anion Gap 13 mmol/L; Blood Urea Nitrogen 24 mg/dL (7-17); Calcium 8.5 mg/dL (8.4-10.2); Carbon Dioxide 19 mmol/L (22-30); Chloride 114 mmol/L (98-107); Glucose 78 mg/dL (74-99); Non-African American GFR(CKD) 84 (>60 ml/min/1.73 sqM); Sodium 146 mmol/L (137-145)
[2022-09-04 08:47] LABS: Potassium 3.7 mmol/L (3.5-5.1)
[2022-09-04] MEDS: FERROUS SULFATE 325 MG TAB PO SCH (10:12)
[2022-09-04] MEDS: CALCIUM CARBONATE 500 MG CHEWABLE PO SCH (10:12)
[2022-09-04] MEDS: OXYBUTYNIN XL 5 MG TAB.ER.24 PO SCH ×2 (10:12→21:54)
[2022-09-04] MEDS: ASPIRIN 81 MG PO SCH (10:12)
[2022-09-04] MEDS: CITALOPRAM HYDROBROMIDE 20 MG TAB PO SCH (10:13)
[2022-09-04] MEDS: CYANOCOBALAMIN 500 MCG TAB PO SCH (10:13)
[2022-09-04] MEDS: carBAMazepine 200 MG TAB PO SCH (10:13)
[2022-09-04] MEDS: amLODIPine 10 MG TAB PO SCH (10:14)
[2022-09-04] MEDS: ENOXAPARIN 40 MG/0.4 ML SYRINGE SQ SCH (10:14)
[2022-09-04] MEDS: MONTELUKAST 10 MG TAB PO SCH (10:14)
[2022-09-04] MEDS: PANTOPRAZOLE 40 MG/10 ML VIAL IVP SCH (12:31)
--- NOTE | 2022-09-04 13:15 | P.PN ---
Subjective Progress Note Date: 09/04/22 CHIEF COMPLAINT: Small bowel obstruction HISTORY OF PRESENT ILLNESS: Patient is postop day #1 status post Small bowel enterotomy with removal of large gallstone, partial omentectomy and lysis of adhesions. Patient reports her pain is controlled. She denies any nausea. No bowel activity. NG tube output 700 mL greenish output. Afebrile. Mild tachycardia improved. WBC is 8.5 Hgb 12.8 platelets 304 sodium is 146 potassium 3.7 creatinine 0.69 PHYSICAL EXAM: VITAL SIGNS: Reviewed. GENERAL: Well-developed in no acute distress. HEENT: No sclera icterus. Extraocular movements grossly intact. Moist buccal mucosa. Head is atraumatic, normocephalic. ABDOMEN: Soft. Incisional dressing clean dry and intact NEUROLOGIC: Alert and oriented. Cranial nerves II through XII grossly intact. ASSESSMENT: 1. Small bowel obstruction and gallstone ileus status post Small bowel enterotomy with removal of large gallstone, partial omentectomy and lysis of adhesions PLAN: -Continue NG tube for decompression -Keep patient nothing by mouth -Continue pain management -Continue supportive care -Continue IV fluids -Incentive spirometer ordered -GI prophylaxis Protonix and DVT prophylaxis Lovenox Physician Conveyor Tender note has been reviewed by physician. Signing provider agrees with the documented findings, assessment, and plan of care. Objective - Vital Signs Vital signs: Vital Signs Temp 98.4 F 09/04/22 08:00 Pulse 65 09/04/22 11:57 Resp 16 09/04/22 11:57 BP 105/68 09/04/22 08:00 Pulse Ox 92 L 09/04/22 09:58 FiO2 Intake & Output 09/03/22 09/04/22 09/04/22 18:59 06:59 18:59 Intake Total 950 Output Total 265 300 700 Balance 685 -300 -700 Intake: IV 950 Output: Gastric Drainage 700 Urine 245 300 Estimated Blood Loss 20 Other: Voiding Method Bedside Commode Bedside Commode Indwelling Catheter - Labs CBC & Chem 7: 09/04/22 08:11 09/04/22 08:11 Labs: Abnormal Lab Results - Last 24 Hours (Table) 09/04/22 Range/Units 08:11 Sodium 146 H (137-145) mmol/L Chloride 114 H (98-107) mmol/L Carbon Dioxide 19 L (22-30) mmol/L BUN 24 H (7-17) mg/dL
--- NOTE | 2022-09-04 14:19 | P.PN ---
Subjective Progress Note Date: 09/04/22 76-year-old female who presents to the emergency department for abdominal pain. States that 2 days ago, she ate pizza with pepperoni. States that the pepperoni was very greasy, and believes that this triggered a gallbladder attack. States she was diagnosed gallstones many years ago, but ended up not h aving surgery, and she cannot recall why. Pain is in the epigastric region. States over the last 2 days, she has also had ongoing nausea and vomiting. She was given Toradol and Zofran by EMS in route with minor improvement in symptoms. She has not had a bowel movement in 2 days and is not passing any gas. Computed tomography scan abdomen and pelvis small bowel obstruction. Zone of transition has a rounded hyperdense area. Consider intussusception and mass within the differential. Gallbladder normal. No kidney masses are evident. Gallbladder ultrasound limited exam as the pancreas and gallbladder not well visualized. Remaining structures demonstrate no definite acute abnormality. Cannot exclude a 2 cm right renal mass. Given the limitations of the exam recommend computed tomography scan of the abdomen Blood work completed in ED revealed the WBC 13.4, hemoglobin of 14.5 and plate let count of 369, sodium of 1. Potassium 3.9, BUN/creatinine of 45/1.78, lactic acid level of 2.5, AST slightly elevated at 40, amylase 74 and lipase normal at 46 -- Patient evaluated by general surgery and NG tube has been removed; patient does report passing some flatus with resolved abdominal pain - Patient is started on a clear liquid diet with resolving small bowel obstruction; plan to advance slowly tomorrow - Continue to monitor strict DOROTHY's and renal function 09/02. Patient seen and examined. Patient having worsening abdominal pain, also having nausea and vomiting. 09/03. Patient seen and examined. Labs done today WBC 10.2, hemoglobin 13, platelet count 300, sodium 141, potassium 3.8, BUN 43, creatinine 1.02 09/04. Patient seen and examined. Status post exploratory laparotomy. Currently has a NG tube in. States she feels much better. REVIEW OF SYSTEMS: CONSTITUTIONAL: No fever, no malaise,. CARDIOVASCULAR: No chest pain, no palpitations, no syncope. PULMONARY: No shortness of breath, no cough, GASTROINTESTINAL: As mentioned above NEUROLOGICAL: No headaches, no weakness, PHYSICAL EXAMINATION: GENERAL: The patient is alert and oriented x3, not in any acute distress. Well developed, well nourished. HEENT: Pupils are round and equally reacting to light. EOMI. No scleral icterus. No conjunctival pallor. Normocephalic, atraumatic. No pharyngeal erythema. No thyromegaly. CARDIOVASCULAR: S1 and S2 present. No murmurs, rubs, or gallops. PULMONARY: Chest is clear to auscultation, no wheezing or crackles. ABDOMEN: Tender, diminished bowel sounds. No palpable organomegaly. MUSCULOSKELETAL: No joint swelling or deformity. EXTREMITIES: No cyanosis, clubbing, or pedal edema. NEUROLOGICAL: Gross neurological examination did not reveal any focal deficits. SKIN: No rashes. Assessment and plan 1. Small bowel obstruction status post Small bowel enterotomy with removal of large gallstone, partial omentectomy and lysis of adhesions Continue NG tube Continue IV fluid Continue pain management Follow-up in surgery recommendations Hypernatremia Acute renal injury; IV fluids in form of normal saline at a rate of 75 mL an hour; we will monitor strict DOROTHY's, daily weights, renal function and electrolytes; avoid nephrotoxins and hypotension 3. Lactic acidosis; continue Zosyn at 3.375 g IV daily 4. Hypertension; patient takes amlodipine 10 mg daily and losartan 100 mg daily; resume Norvasc for now 5. Asthma; not in exacerbation; continue with home inhaler therapy as needed; patient takes Singulair at 10 mg daily 6. Restless leg syndrome; Requip 0.5 mg by mouth daily at bedtime 7. Anxiety/depression; Xanax 0.25 mg twice a day when necessary and Celexa 40 mg daily Labs and medication were reviewed.. Continue same treatment. Continue with symptomatic treatment. Resume home medication. Monitor labs and vitals. DVT and GI prophylaxis. Further recommendations as per clinical course of the patient Objective - Vital Signs Vital signs: Vital Signs Temp 98.4 F 09/04/22 08:00 Pulse 65 09/04/22 11:57 Resp 16 09/04/22 11:57 BP 105/68 09/04/22 08:00 Pulse Ox 92 L 09/04/22 09:58 FiO2 Intake & Output 09/03/22 09/04/22 09/04/22 18:59 06:59 18:59 Intake Total 950 Output Total 265 300 700 Balance 685 -300 -700 Weight 50.9 kg Intake: IV 950 Output: Gastric Drainage 700 Urine 245 300 Estimated Blood Loss 20 Other: Voiding Method Bedside Commode Bedside Commode Indwelling Catheter - Labs CBC & Chem 7: 09/04/22 08:11 09/04/22 08:11 Labs: Abnormal Lab Results - Last 24 Hours (Table) 09/04/22 Range/Units 08:11 Sodium 146 H (137-145) mmol/L Chloride 114 H (98-107) mmol/L Carbon Dioxide 19 L (22-30) mmol/L BUN 24 H (7-17) mg/dL
[2022-09-04] MEDS: LATANOPROST 0.005% OPHTH DROPS 2.5 ML BTL BOTH EYES SCH (21:54)
[2022-09-04] MEDS: ALPRAZolam 0.25 MG TAB PO PRN (22:05)
[2022-09-04] MEDS: HYDROmorphone 0.5 MG/0.5 ML SYRINGE IVP PRN (22:05)
[2022-09-05] MEDS: PIPERACILLIN-TAZOBACTAM 3.375 GM in SODIUM CHLORIDE 0.9% 100 ML IVPB SCH ×3 (08:30→20:34)
[2022-09-05] MEDS: CITALOPRAM HYDROBROMIDE 20 MG TAB PO SCH (10:59)
[2022-09-05] MEDS: FERROUS SULFATE 325 MG TAB PO SCH (11:00)
[2022-09-05] MEDS: amLODIPine 10 MG TAB PO SCH (11:00)
[2022-09-05] MEDS: CYANOCOBALAMIN 500 MCG TAB PO SCH (11:00)
[2022-09-05] MEDS: OXYBUTYNIN XL 5 MG TAB.ER.24 PO SCH ×2 (11:00→20:34)
[2022-09-05] MEDS: MONTELUKAST 10 MG TAB PO SCH (11:00)
[2022-09-05] MEDS: carBAMazepine 200 MG TAB PO SCH (11:00)
[2022-09-05] MEDS: CALCIUM CARBONATE 500 MG CHEWABLE PO SCH (11:01)
[2022-09-05] MEDS: ASPIRIN 81 MG PO SCH (11:01)
[2022-09-05] MEDS: ENOXAPARIN 40 MG/0.4 ML SYRINGE SQ SCH (11:01)
--- NOTE | 2022-09-05 11:26 | P.PN ---
Subjective Progress Note Date: 09/05/22 CHIEF COMPLAINT: Small bowel obstruction HISTORY OF PRESENT ILLNESS: Patient is postop day #2 status post Small bowel enterotomy with removal of large gallstone, partial omentectomy and lysis of adhesions. Patient reports her pain is controlled. Rates it about a 3 out of 10. No bowel activity yet. Urinating without difficulty. Afebrile. WBC 8.5 from yesterday. NG tube output 700 through the night. Now roughly 200 mL of clearish output. PHYSICAL EXAM: VITAL SIGNS: Reviewed. GENERAL: Well-developed in no acute distress. HEENT: No sclera icterus. Extraocular movements grossly intact. Moist buccal mucosa. Head is atraumatic, normocephalic. ABDOMEN: Soft. Mildly distended. Incision dry and intact NEUROLOGIC: Alert and oriented. Cranial nerves II through XII grossly intact. ASSESSMENT: 1. Small bowel obstruction and gallstone ileus status post Small bowel enterotomy with removal of large gallstone, partial omentectomy and lysis of adhesions PLAN: -Continue NG tube for decompression -Keep patient nothing by mouth -Continue pain management -Continue supportive care -Change incisional dressing to Optifoam -Continue IV fluids -Incentive spirometer ordered -GI prophylaxis Protonix and DVT prophylaxis Lovenox Physician Insurance Sales Producer note has been reviewed by physician. Signing provider agrees with the documented findings, assessment, and plan of care. Objective - Vital Signs Vital signs: Vital Signs Temp 97.9 F 09/05/22 07:21 Pulse 97 09/05/22 07:21 Resp 18 09/05/22 07:21 BP 139/64 09/05/22 07:21 Pulse Ox 98 09/05/22 08:55 FiO2 21 09/05/22 08:55 Intake & Output 09/04/22 09/05/22 09/05/22 18:59 06:59 18:59 Intake Total 100 Output Total 1050 Balance -950 Weight 50.9 kg Intake: Intake, IV Titration 100 Amount Piperacillin-Tazobactam 3 100 .375 gm In Sodium Chloride 0.9% 100 ml @ 25 mls/hr IVPB Q8HR [facility] Rx# :[id number] Output: Gastric Drainage 700 Urine 350 Other: Voiding Method Indwelling Catheter Bedside Commode Bedside Commode # Voids 1 2 - Labs CBC & Chem 7: 09/04/22 08:11 09/04/22 08:11 Labs: Microbiology - Last 24 Hours (Table) 08/30/22 14:50 Blood Culture - Final Blood 08/30/22 14:35 Blood Culture - Final Blood
[2022-09-05] MEDS: PANTOPRAZOLE 40 MG/10 ML VIAL IVP SCH (12:26)
[2022-09-05] MEDS: SODIUM CHLORIDE 0.9% 1,000 ML IV SCH (12:29)
--- NOTE | 2022-09-05 13:34 | P.PN ---
Subjective Progress Note Date: 09/05/22 76-year-old female who presents to the emergency department for abdominal pain. States that 2 days ago, she ate pizza with pepperoni. States that the pepperoni was very greasy, and believes that this triggered a gallbladder attack. States she was diagnosed gallstones many years ago, but ended up not h aving surgery, and she cannot recall why. Pain is in the epigastric region. States over the last 2 days, she has also had ongoing nausea and vomiting. She was given Toradol and Zofran by EMS in route with minor improvement in symptoms. She has not had a bowel movement in 2 days and is not passing any gas. Computed tomography scan abdomen and pelvis small bowel obstruction. Zone of transition has a rounded hyperdense area. Consider intussusception and mass within the differential. Gallbladder normal. No kidney masses are evident. Gallbladder ultrasound limited exam as the pancreas and gallbladder not well visualized. Remaining structures demonstrate no definite acute abnormality. Cannot exclude a 2 cm right renal mass. Given the limitations of the exam recommend computed tomography scan of the abdomen Blood work completed in ED revealed the WBC 13.4, hemoglobin of 14.5 and plate let count of 369, sodium of 1. Potassium 3.9, BUN/creatinine of 45/1.78, lactic acid level of 2.5, AST slightly elevated at 40, amylase 74 and lipase normal at 46 -- Patient evaluated by general surgery and NG tube has been removed; patient does report passing some flatus with resolved abdominal pain - Patient is started on a clear liquid diet with resolving small bowel obstruction; plan to advance slowly tomorrow - Continue to monitor strict DOROTHY's and renal function 09/02. Patient seen and examined. Patient having worsening abdominal pain, also having nausea and vomiting. 09/03. Patient seen and examined. Labs done today WBC 10.2, hemoglobin 13, platelet count 300, sodium 141, potassium 3.8, BUN 43, creatinine 1.02 09/04. Patient seen and examined. Status post exploratory laparotomy. Currently has a NG tube in. States she feels much better. 09/05 . Patient seen and examined. Blood pressure is controlled. Currently nothing by mouth, diet per surgery. Patient states she wants to eat something and wants her NG tube out, discussed with her regarding need for her to keep NG in REVIEW OF SYSTEMS: CONSTITUTIONAL: No fever, no malaise,. CARDIOVASCULAR: No chest pain, no palpitations, no syncope. PULMONARY: No shortness of breath, no cough, GASTROINTESTINAL: As mentioned above NEUROLOGICAL: No headaches, no weakness, PHYSICAL EXAMINATION: GENERAL: The patient is alert and oriented x3, not in any acute distress. Well developed, well nourished. HEENT: Pupils are round and equally reacting to light. EOMI. No scleral icterus. No conjunctival pallor. Normocephalic, atraumatic. No pharyngeal erythema. No thyromegaly. CARDIOVASCULAR: S1 and S2 present. No murmurs, rubs, or gallops. PULMONARY: Chest is clear to auscultation, no wheezing or crackles. ABDOMEN: Tender, diminished bowel sounds. No palpable organomegaly. MUSCULOSKELETAL: No joint swelling or deformity. EXTREMITIES: No cyanosis, clubbing, or pedal edema. NEUROLOGICAL: Gross neurological examination did not reveal any focal deficits. SKIN: No rashes. Assessment and plan 1. Small bowel obstruction status post Small bowel enterotomy with removal of large gallstone, partial omentectomy and lysis of adhesions Continue NG tube Continue IV fluid Continue pain management Follow-up in surgery recommendations Hypernatremia Acute renal injury; IV fluids in form of normal saline at a rate of 75 mL an hour; we will monitor strict DOROTHY's, daily weights, renal function and electrolytes; avoid nephrotoxins and hypotension 3. Lactic acidosis; continue Zosyn at 3.375 g IV daily 4. Hypertension; patient takes amlodipine 10 mg daily and losartan 100 mg bautista ly; resume Norvasc for now 5. Asthma; not in exacerbation; continue with home inhaler therapy as needed; patient takes Singulair at 10 mg daily 6. Restless leg syndrome; Requip 0.5 mg by mouth daily at bedtime 7. Anxiety/depression; Xanax 0.25 mg twice a day when necessary and Celexa 40 mg daily Labs and medication were reviewed.. Continue same treatment. Continue with symptomatic treatment. Resume home medication. Monitor labs and vitals. DVT and GI prophylaxis. Further recommendations as per clinical course of the patient Objective - Vital Signs Vital signs: Vital Signs Temp 97.9 F 09/05/22 07:21 Pulse 97 09/05/22 07:21 Resp 18 09/05/22 07:21 BP 139/64 09/05/22 07:21 Pulse Ox 98 09/05/22 08:55 FiO2 21 09/05/22 08:55 Intake & Output 09/04/22 09/05/22 09/05/22 18:59 06:59 18:59 Intake Total 100 Output Total 1050 Balance -950 Weight 50.9 kg Intake: Intake, IV Titration 100 Amount Piperacillin-Tazobactam 3 100 .375 gm In Sodium Chloride 0.9% 100 ml @ 25 mls/hr IVPB Q8HR [facility] Rx# :[id number] Output: Gastric Drainage 700 Urine 350 Other: Voiding Method Indwelling Catheter Bedside Commode Bedside Commode # Voids 1 2 - Labs CBC & Chem 7: 09/04/22 08:11 09/04/22 08:11 Labs: Microbiology - Last 24 Hours (Table) 08/30/22 14:50 Blood Culture - Final Blood 08/30/22 14:35 Blood Culture - Final Blood
[2022-09-05] MEDS: LATANOPROST 0.005% OPHTH DROPS 2.5 ML BTL BOTH EYES SCH (20:35)
[2022-09-05] MEDS: ONDANSETRON 4 MG/2 ML VIAL IVP PRN (22:17)
[2022-09-06] MEDS: CITALOPRAM HYDROBROMIDE 20 MG TAB PO SCH (08:36)
[2022-09-06] MEDS: carBAMazepine 200 MG TAB PO SCH (08:36)
[2022-09-06] MEDS: amLODIPine 10 MG TAB PO SCH (08:36)
[2022-09-06] MEDS: CYANOCOBALAMIN 500 MCG TAB PO SCH (08:36)
[2022-09-06] MEDS: ENOXAPARIN 40 MG/0.4 ML SYRINGE SQ SCH (08:37)
[2022-09-06] MEDS: CALCIUM CARBONATE 500 MG CHEWABLE PO SCH (08:37)
[2022-09-06] MEDS: OXYBUTYNIN XL 5 MG TAB.ER.24 PO SCH ×2 (08:37→20:25)
[2022-09-06] MEDS: ASPIRIN 81 MG PO SCH (08:37)
[2022-09-06] MEDS: FERROUS SULFATE 325 MG TAB PO SCH (08:37)
[2022-09-06] MEDS: MONTELUKAST 10 MG TAB PO SCH (08:37)
[2022-09-06] MEDS: PIPERACILLIN-TAZOBACTAM 3.375 GM in SODIUM CHLORIDE 0.9% 100 ML IVPB SCH ×2 (09:26→18:59)
[2022-09-06] MEDS: PANTOPRAZOLE 40 MG/10 ML VIAL IVP SCH (09:26)
[2022-09-06] MEDS: SODIUM CHLORIDE 0.9% 1,000 ML IV SCH ×2 (09:27→13:13)
[2022-09-06 11:03] LABS: Basophils # (A) 0.12 X 10*3/uL (0.00-0.10); Basophils % (A) 0.9 %; Eosinophils % (A) 0.8 %; HCT 37.1 % (37.2-46.3); HGB 11.4 d/dL (12.0-15.0); Lymphocytes # (A) 1.02 X 10*3/uL (0.90-5.00); Lymphocytes % (A) 7.7 %; MCHC 30.7 d/dL (32.0-37.0); MCV 87.7 FL (80.0-97.0); Mean Platelet Volume 9.9 FL (9.5-12.2); Monocytes # (A) 0.85 X 10*3/uL (0.20-1.00); Monocytes % (A) 6.4 %; NRBC Per 100 WBC 0 X 10*3/uL (0.00-0.01); Neutrophils # (A) 10.99 X 10*3/uL (1.80-7.70); Neutrophils % (A) 82.4 %; Platelet Count 348 X 10*3/uL (140-440); RBC 4.23 X 10*6/uL (4.10-5.20); WBC 13.32 X 10*3/uL (4.50-10.00)
[2022-09-06 11:29] LABS: ALT 30 U/L (8-44); AST 46 U/L (13-35); Albumin 3.1 d/dL (3.8-4.9); Albumin/Globulin Ratio 1.48 Ratio (1.60-3.17); Alkaline Phosphatase 90 U/L (41-126); Blood Urea Nitrogen 12.6 mg/dL (9.0-27.0); Calcium 8.9 mg/dL (8.7-10.3); Carbon Dioxide 21.9 mmol/L (21.6-31.8); Chloride 113 mmol/L (96-109); Globulin 2.1 d/dL (1.6-3.3); Glucose 111 mg/dL (70-110); Potassium 3.5 mmol/L (3.5-5.5); Sodium 150 mmol/L (135-145); Total Bilirubin 0.3 mg/dL (0.3-1.2); Total Protein 5.2 d/dL (6.2-8.2)
--- NOTE | 2022-09-06 13:00 | P.PN ---
Subjective Progress Note Date: 09/06/22 CHIEF COMPLAINT: Small bowel obstruction HISTORY OF PRESENT ILLNESS: Patient is postop day #3 status post Small bowel enterotomy with removal of large gallstone, partial omentectomy and lysis of adhesions. Patient reports her pain is controlled. NG tube was discontinued yesterday. She tolerated clear liquid diet. She is now having flatus and bowel movement. Afebrile. WBC elevated at 13.3 hgb 11.4 plt 348 sodium 150 potassiums 3.5 creatinine 0.6 PHYSICAL EXAM: VITAL SIGNS: Reviewed. GENERAL: Well-developed in no acute distress. ABDOMEN: Soft. Nondistended. Incisional dressing clean dry and intact NEUROLOGIC: Alert and oriented. Cranial nerves II through XII grossly intact. ASSESSMENT: 1. Small bowel obstruction and gallstone ileus status post Small bowel enterotomy with removal of large gallstone, partial omentectomy and lysis of adhesions PLAN: -Advance diet to full liquids -And [place] for oral pain medication -Encourage patient to ambulate -Encourage patient to use incentive spirometer -Discontinue IV fluids -Hypernatremia management per medicine service -Repeat labs in a.m. -GI prophylaxis Protonix and DVT prophylaxis Lovenox Physician Reduction Furnace Operator note has been reviewed by physician. Signing provider agrees with the documented findings, assessment, and plan of care. Objective - Vital Signs Vital signs: Vital Signs Temp 97.8 F 09/06/22 06:52 Pulse 91 09/06/22 06:52 Resp 16 09/06/22 06:52 BP 146/84 09/06/22 06:52 Pulse Ox 97 09/06/22 08:51 FiO2 21 09/05/22 08:55 Intake & Output 09/05/22 09/06/22 09/06/22 18:59 06:59 18:59 Intake Total 1600 Balance 1600 Intake: Intake, IV Titration 1200 Amount Piperacillin-Tazobactam 3 100 .375 gm In Sodium Chloride 0.9% 100 ml @ 25 mls/hr IVPB Q8HR [facility] Rx# :[id number] Sodium Chloride 0.9% 1, 1100 000 ml @ 100 mls/hr IV . Q10H [facility] Rx#:[id number] Oral 400 Other: Voiding Method Bedside Commode Toilet Bedside Commode # Voids 3 2 - Labs CBC & Chem 7: 09/06/22 05:41 09/06/22 05:41 Labs: Abnormal Lab Results - Last 24 Hours (Table) 09/06/22 09/06/22 Range/Units 05:41 05:41 WBC 13.32 H (4.50-10.00) X 10*3/uL Hgb 11.4 L (12.0-15.0) d/dL Hct 37.1 L (37.2-46.3) % MCHC 30.7 L (32.0-37.0) d/dL RDW 15.0 H (11.5-14.5) % Neutrophils # 10.99 H (1.80-7.70) X 10*3/uL Basophils # 0.12 H (0.00-0.10) X 10*3/uL Sodium 150 H (135-145) mmol/L Chloride 113 H (96-109) mmol/L Anion Gap 15.10 H (4.00-12.00) mmol/L BUN/Creatinine Ratio 21.00 H (12.00-20.00) Ratio Glucose 111 H (70-110) mg/dL AST 46 H (13-35) U/L Total Protein 5.2 L (6.2-8.2) d/dL Albumin 3.1 L (3.8-4.9) d/dL Albumin/Globulin Ratio 1.48 L (1.60-3.17) Ratio
--- NOTE | 2022-09-06 13:11 | P.PN ---
Subjective Progress Note Date: 09/06/22 76-year-old female who presents to the emergency department for abdominal pain. States that 2 days ago, she ate pizza with pepperoni. States that the pepperoni was very greasy, and believes that this triggered a gallbladder attack. States she was diagnosed gallstones many years ago, but ended up not h aving surgery, and she cannot recall why. Pain is in the epigastric region. States over the last 2 days, she has also had ongoing nausea and vomiting. She was given Toradol and Zofran by EMS in route with minor improvement in symptoms. She has not had a bowel movement in 2 days and is not passing any gas. Computed tomography scan abdomen and pelvis small bowel obstruction. Zone of transition has a rounded hyperdense area. Consider intussusception and mass within the differential. Gallbladder normal. No kidney masses are evident. Gallbladder ultrasound limited exam as the pancreas and gallbladder not well visualized. Remaining structures demonstrate no definite acute abnormality. Cannot exclude a 2 cm right renal mass. Given the limitations of the exam recommend computed tomography scan of the abdomen Blood work completed in ED revealed the WBC 13.4, hemoglobin of 14.5 and plate let count of 369, sodium of 1. Potassium 3.9, BUN/creatinine of 45/1.78, lactic acid level of 2.5, AST slightly elevated at 40, amylase 74 and lipase normal at 46 -- Patient evaluated by general surgery and NG tube has been removed; patient does report passing some flatus with resolved abdominal pain - Patient is started on a clear liquid diet with resolving small bowel obstruction; plan to advance slowly tomorrow - Continue to monitor strict DOROTHY's and renal function 09/02. Patient seen and examined. Patient having worsening abdominal pain, also having nausea and vomiting. 09/03. Patient seen and examined. Labs done today WBC 10.2, hemoglobin 13, platelet count 300, sodium 141, potassium 3.8, BUN 43, creatinine 1.02 09/04. Patient seen and examined. Status post exploratory laparotomy. Currently has a NG tube in. States she feels much better. 09/05 . Patient seen and examined. Blood pressure is controlled. Currently nothing by mouth, diet per surgery. Patient states she wants to eat something and wants her NG tube out, discussed with her regarding need for her to keep NG in 09/06. Patient seen and examined . States nausea and vomiting has improved a lot. NG tube was removed yesterday. Currently on clear liquid diet REVIEW OF SYSTEMS: CONSTITUTIONAL: No fever, no malaise,. CARDIOVASCULAR: No chest pain, no palpitations, no syncope. PULMONARY: No shortness of breath, no cough, GASTROINTESTINAL: As mentioned above NEUROLOGICAL: No headaches, no weakness, PHYSICAL EXAMINATION: GENERAL: The patient is alert and oriented x3, not in any acute distress. Well developed, well nourished. HEENT: Pupils are round and equally reacting to light. EOMI. No scleral icterus. No conjunctival pallor. Normocephalic, atraumatic. No pharyngeal erythema. No thyromegaly. CARDIOVASCULAR: S1 and S2 present. No murmurs, rubs, or gallops. PULMONARY: Chest is clear to auscultation, no wheezing or crackles. ABDOMEN: Tender, diminished bowel sounds. No palpable organomegaly. Laparotomy surgical incision seen MUSCULOSKELETAL: No joint swelling or deformity. EXTREMITIES: No cyanosis, clubbing, or pedal edema. NEUROLOGICAL: Gross neurological examination did not reveal any focal deficits. SKIN: No rashes. Assessment and plan 1. Small bowel obstruction status post Small bowel enterotomy with removal of large gallstone, partial omentectomy and lysis of adhesions Continue IV fluid Started on Clear liquid diet Continue pain management Follow-up in surgery recommendations Hypernatremia Acute renal injury; DC fluids, encourage oral hydration Lactic acidosis; continue Zosyn at 3.375 g IV daily Hypertension; patient takes amlodipine 10 mg daily and losartan 100 mg daily; resume Norvasc for now Asthma; not in exacerbation; continue with home inhaler therapy as needed; patient takes Singulair at 10 mg daily Restless leg syndrome; Requip 0.5 mg by mouth daily at bedtime Anxiety/depression; Xanax 0.25 mg twice a day when necessary and Celexa 40 mg daily Labs and medication were reviewed.. Continue same treatment. Continue with symptomatic treatment. Resume home medication. Monitor labs and vitals. DVT and GI prophylaxis. Further recommendations as per clinical course of the edyta ent Objective - Vital Signs Vital signs: Vital Signs Temp 97.8 F 09/06/22 06:52 Pulse 91 09/06/22 06:52 Resp 16 09/06/22 06:52 BP 146/84 09/06/22 06:52 Pulse Ox 97 09/06/22 08:51 FiO2 21 09/05/22 08:55 Intake & Output 09/05/22 09/06/22 09/06/22 18:59 06:59 18:59 Intake Total 1600 Balance 1600 Intake: Intake, IV Titration 1200 Amount Piperacillin-Tazobactam 3 100 .375 gm In Sodium Chloride 0.9% 100 ml @ 25 mls/hr IVPB Q8HR [facility] Rx# :[id number] Sodium Chloride 0.9% 1, 1100 000 ml @ 100 mls/hr IV . Q10H [facility] Rx#:[id number] Oral 400 Other: Voiding Method Bedside Commode Toilet Bedside Commode # Voids 3 2 - Labs CBC & Chem 7: 09/06/22 05:41 09/06/22 05:41
[2022-09-06] MEDS: ONDANSETRON 4 MG/2 ML VIAL IVP PRN (14:01)
[2022-09-06] MEDS: LATANOPROST 0.005% OPHTH DROPS 2.5 ML BTL BOTH EYES SCH (20:26)
[2022-09-06 21:35] LABS: Glucose,Whole Blood 87 mg/dL (70-110)
[2022-09-07] MEDS: PIPERACILLIN-TAZOBACTAM 3.375 GM in SODIUM CHLORIDE 0.9% 100 ML IVPB SCH ×4 (00:20→23:45)
[2022-09-07] MEDS: ONDANSETRON 4 MG/2 ML VIAL IVP PRN ×2 (02:14→23:51)
[2022-09-07] MEDS: PANTOPRAZOLE 40 MG/10 ML VIAL IVP SCH (09:26)
[2022-09-07] MEDS: FERROUS SULFATE 325 MG TAB PO SCH (09:27)
[2022-09-07] MEDS: CITALOPRAM HYDROBROMIDE 20 MG TAB PO SCH (09:27)
[2022-09-07] MEDS: CYANOCOBALAMIN 500 MCG TAB PO SCH (09:27)
[2022-09-07] MEDS: amLODIPine 10 MG TAB PO SCH (09:27)
[2022-09-07] MEDS: OXYBUTYNIN XL 5 MG TAB.ER.24 PO SCH ×2 (09:27→19:59)
[2022-09-07] MEDS: CALCIUM CARBONATE 500 MG CHEWABLE PO SCH (09:27)
[2022-09-07] MEDS: carBAMazepine 200 MG TAB PO SCH (09:27)
[2022-09-07] MEDS: ASPIRIN 81 MG PO SCH (09:28)
[2022-09-07] MEDS: MONTELUKAST 10 MG TAB PO SCH (09:28)
[2022-09-07] MEDS: ENOXAPARIN 40 MG/0.4 ML SYRINGE SQ SCH (09:29)
[2022-09-07 09:59] LABS: Basophils # (A) 0.08 X 10*3/uL (0.00-0.10); Basophils % (A) 0.7 %; Eosinophils # (A) 0.18 X 10*3/uL (0.04-0.35); Eosinophils % (A) 1.6 %; HCT 36.7 % (37.2-46.3); HGB 11.6 d/dL (12.0-15.0); Lymphocytes # (A) 0.94 X 10*3/uL (0.90-5.00); Lymphocytes % (A) 8.5 %; MCH 27.1 pg (27.0-32.0); MCHC 31.6 d/dL (32.0-37.0); MCV 85.7 FL (80.0-97.0); Mean Platelet Volume 9.8 FL (9.5-12.2); Monocytes # (A) 0.67 X 10*3/uL (0.20-1.00); NRBC Per 100 WBC 0 X 10*3/uL (0.00-0.01); Neutrophils # (A) 8.99 X 10*3/uL (1.80-7.70); Neutrophils % (A) 80.9 %; Platelet Count 307 X 10*3/uL (140-440); RBC 4.28 X 10*6/uL (4.10-5.20); RDW 15.1 % (11.5-14.5); WBC 11.12 X 10*3/uL (4.50-10.00)
[2022-09-07 10:08] LABS: BUN/Creat Ratio 18.67 Ratio (12.00-20.00); Blood Urea Nitrogen 11.2 mg/dL (9.0-27.0); Calcium 8.7 mg/dL (8.7-10.3); Carbon Dioxide 22.3 mmol/L (21.6-31.8); Chloride 114 mmol/L (96-109); Glucose 87 mg/dL (70-110); Potassium 3.3 mmol/L (3.5-5.5); Sodium 148 mmol/L (135-145)
--- NOTE | 2022-09-07 14:00 | P.PN ---
Subjective Progress Note Date: 09/07/22 76-year-old female who presents to the emergency department for abdominal pain. States that 2 days ago, she ate pizza with pepperoni. States that the pepperoni was very greasy, and believes that this triggered a gallbladder attack. States she was diagnosed gallstones many years ago, but ended up not h aving surgery, and she cannot recall why. Pain is in the epigastric region. States over the last 2 days, she has also had ongoing nausea and vomiting. She was given Toradol and Zofran by EMS in route with minor improvement in symptoms. She has not had a bowel movement in 2 days and is not passing any gas. Computed tomography scan abdomen and pelvis small bowel obstruction. Zone of transition has a rounded hyperdense area. Consider intussusception and mass within the differential. Gallbladder normal. No kidney masses are evident. Gallbladder ultrasound limited exam as the pancreas and gallbladder not well visualized. Remaining structures demonstrate no definite acute abnormality. Cannot exclude a 2 cm right renal mass. Given the limitations of the exam recommend computed tomography scan of the abdomen Blood work completed in ED revealed the WBC 13.4, hemoglobin of 14.5 and plate let count of 369, sodium of 1. Potassium 3.9, BUN/creatinine of 45/1.78, lactic acid level of 2.5, AST slightly elevated at 40, amylase 74 and lipase normal at 46 -- Patient evaluated by general surgery and NG tube has been removed; patient does report passing some flatus with resolved abdominal pain - Patient is started on a clear liquid diet with resolving small bowel obstruction; plan to advance slowly tomorrow - Continue to monitor strict DOROTHY's and renal function 09/02. Patient seen and examined. Patient having worsening abdominal pain, also having nausea and vomiting. 09/03. Patient seen and examined. Labs done today WBC 10.2, hemoglobin 13, platelet count 300, sodium 141, potassium 3.8, BUN 43, creatinine 1.02 09/04. Patient seen and examined. Status post exploratory laparotomy. Currently has a NG tube in. States she feels much better. 09/05 . Patient seen and examined. Blood pressure is controlled. Currently nothing by mouth, diet per surgery. Patient states she wants to eat something and wants her NG tube out, discussed with her regarding need for her to keep NG in 09/06. Patient seen and examined . States nausea and vomiting has improved a lot. NG tube was removed yesterday. Currently on clear liquid diet 09/07. Patient seen and examined. No acute issues overnight. Vital signs stable REVIEW OF SYSTEMS: CONSTITUTIONAL: No fever, no malaise,. CARDIOVASCULAR: No chest pain, no palpitations, no syncope. PULMONARY: No shortness of breath, no cough, GASTROINTESTINAL: As mentioned above NEUROLOGICAL: No headaches, no weakness, PHYSICAL EXAMINATION: GENERAL: The patient is alert and oriented x3, not in any acute distress. Well developed, well nourished. HEENT: Pupils are round and equally reacting to light. EOMI. No scleral icterus. No conjunctival pallor. Normocephalic, atraumatic. No pharyngeal erythema. No thyromegaly. CARDIOVASCULAR: S1 and S2 present. No murmurs, rubs, or gallops. PULMONARY: Chest is clear to auscultation, no wheezing or crackles. ABDOMEN: Tender, diminished bowel sounds. No palpable organomegaly. Laparotomy surgical incision seen MUSCULOSKELETAL: No joint swelling or deformity. EXTREMITIES: No cyanosis, clubbing, or pedal edema. NEUROLOGICAL: Gross neurological examination did not reveal any focal deficits. SKIN: No rashes. Assessment and plan 1. Small bowel obstruction status post Small bowel enterotomy with removal of large gallstone, partial omentectomy and lysis of adhesions Continue IV fluid Continue Clear liquid diet Continue pain management Follow-up in surgery recommendations Hypernatremia Acute renal injury; encourage oral hydration Lactic acidosis; continue Zosyn at 3.375 g IV daily Hypertension; patient takes amlodipine 10 mg daily and losartan 100 mg daily; resume Norvasc for now Asthma; not in exacerbation; continue with home inhaler therapy as needed; patient takes Singulair at 10 mg daily Restless leg syndrome; Requip 0.5 mg by mouth daily at bedtime Anxiety/depression; Xanax 0.25 mg twice a day when necessary and Celexa 40 mg daily Labs and medication were reviewed.. Continue same treatment. Continue with symptomatic treatment. Resume home medication. Monitor labs and vitals. DVT and GI prophylaxis. Further recommendations as per clinical course of the patient Objective - Vital Signs Vital signs: Vital Signs Temp 97.9 F 09/07/22 07:30 Pulse 94 09/07/22 07:30 Resp 18 09/07/22 09:26 BP 137/94 09/07/22 07:30 Pulse Ox 94 L 09/07/22 08:03 FiO2 21 09/05/22 08:55 Intake & Output 09/06/22 09/07/22 09/07/22 18:59 06:59 18:59 Output Total 600 Balance -600 Weight 50.9 kg Output: Urine 300 Emesis 300 Other: Voiding Method Bedside Commode Bedside Commode # Voids 3 # Bowel Movements 1 1 - Labs CBC & Chem 7: 09/07/22 06:28 09/07/22 06:28 Labs: Abnormal Lab Results - Last 24 Hours (Table) 09/07/22 09/07/22 Range/Units 06:28 06:28 WBC 11.12 H (4.50-10.00) X 10*3/uL Hgb 11.6 L (12.0-15.0) d/dL Hct 36.7 L (37.2-46.3) % MCHC 31.6 L (32.0-37.0) d/dL RDW 15.1 H (11.5-14.5) % Neutrophils # 8.99 H (1.80-7.70) X 10*3/uL Sodium 148 H (135-145) mmol/L Potassium 3.3 L (3.5-5.5) mmol/L Chloride 114 H (96-109) mmol/L
[2022-09-07] MEDS ORDERED: Potassium Replacement Protocol 1 EACH MISC MISCELLANE PRN (14:17)
[2022-09-07] MEDS ORDERED: niCARdipine 20 MG in SODIUM CHLORIDE 0.9% 192 ML IV SCH (14:30)
[2022-09-07] MEDS ORDERED: DILTIAZEM DRIP BOLUS FROM BAG 1 MG SOLN IV ONE (14:45)
[2022-09-07] MEDS: DILTIAZEM 125 MG in SODIUM CHLORIDE 0.9% 100 ML IV SCH (14:47)
[2022-09-07] MEDS: POTASSIUM CHLORIDE ER 20 MEQ TAB.ER PO SCH ×2 (14:49→17:03)
--- NOTE | 2022-09-07 17:01 | P.PN ---
Subjective Progress Note Date: 09/07/22 CHIEF COMPLAINT: Bowel obstruction HISTORY OF PRESENT ILLNESS: The patient is a 76-year-old female status post bowel resection for gallstone ileus. She is tolerating clear liquid diet. She is passing flatus and having bowel movements. She has incisional pain with coughing. REVIEW OF ORGAN SYSTEMS: CONSTITUTIONAL: No reports of fevers or chills. GI: Denies any blood in stools or constipation. PHYSICAL EXAM: VITAL SIGNS: Stable GENERAL: Well-developed pleasant and in no acute distress. HEENT: No scleral icterus. Extraocular movements grossly intact. Moist buccal mucosa. NECK: Supple without lymphadenopathy. CHEST: Unlabored respirations. Equal bilateral excursions. CARDIOVASCULAR: Regular rate and rhythm. Distal 2+ pulses. ABDOMEN: No peritonitis. Incision intact MUSCULOSKELETAL: No clubbing, cyanosis, or edema. PSYCH: Appropriate affect. Alert and oriented to person, place, and time. LABS: Reviewed. ASSESSMENT: 1. Gallstone ileus PLAN: 1. Advance diet to full liquid diet. Objective - Vital Signs Vital signs: Vital Signs Temp 98.5 F 09/07/22 14:45 Pulse 120 H 09/07/22 14:45 Resp 18 09/07/22 14:45 BP 156/56 09/07/22 14:45 Pulse Ox 93 L 09/07/22 14:45 FiO2 21 09/05/22 08:55 Intake & Output 09/06/22 09/07/22 09/07/22 18:59 06:59 18:59 Output Total 600 Balance -600 Weight 50.9 kg Output: Urine 300 Emesis 300 Other: Voiding Method Bedside Commode Bedside Commode # Voids 3 # Bowel Movements 1 1 - Labs CBC & Chem 7: 09/07/22 06:28 09/07/22 06:28 Labs: Abnormal Lab Results - Last 24 Hours (Table) 09/07/22 09/07/22 Range/Units 06:28 06:28 WBC 11.12 H (4.50-10.00) X 10*3/uL Hgb 11.6 L (12.0-15.0) d/dL Hct 36.7 L (37.2-46.3) % MCHC 31.6 L (32.0-37.0) d/dL RDW 15.1 H (11.5-14.5) % Neutrophils # 8.99 H (1.80-7.70) X 10*3/uL Sodium 148 H (135-145) mmol/L Potassium 3.3 L (3.5-5.5) mmol/L Chloride 114 H (96-109) mmol/L
[2022-09-07] MEDS: LATANOPROST 0.005% OPHTH DROPS 2.5 ML BTL BOTH EYES SCH (19:59)
[2022-09-07] MEDS: HYDROmorphone 0.5 MG/0.5 ML SYRINGE IVP PRN (23:45)
[2022-09-08] MEDS: PIPERACILLIN-TAZOBACTAM 3.375 GM in SODIUM CHLORIDE 0.9% 100 ML IVPB SCH (09:34)
[2022-09-08] MEDS: ENOXAPARIN 40 MG/0.4 ML SYRINGE SQ SCH (09:35)
[2022-09-08] MEDS: OXYBUTYNIN XL 5 MG TAB.ER.24 PO SCH ×2 (09:35→20:07)
[2022-09-08] MEDS: PANTOPRAZOLE 40 MG/10 ML VIAL IVP SCH (09:35)
[2022-09-08] MEDS: CITALOPRAM HYDROBROMIDE 20 MG TAB PO SCH (09:35)
[2022-09-08] MEDS: ASPIRIN 81 MG PO SCH (09:35)
[2022-09-08] MEDS: MONTELUKAST 10 MG TAB PO SCH (09:35)
[2022-09-08] MEDS: CYANOCOBALAMIN 500 MCG TAB PO SCH (09:36)
[2022-09-08] MEDS: FERROUS SULFATE 325 MG TAB PO SCH (09:36)
[2022-09-08] MEDS: carBAMazepine 200 MG TAB PO SCH (09:36)
[2022-09-08] MEDS: amLODIPine 10 MG TAB PO SCH (09:36)
[2022-09-08] MEDS: CALCIUM CARBONATE 500 MG CHEWABLE PO SCH (09:40)
[2022-09-08] MEDS: DILTIAZEM 125 MG in SODIUM CHLORIDE 0.9% 100 ML IV SCH (10:30)
[2022-09-08 11:30] LABS: Basophils % (A) 0 %; Eosinophils # (A) 0.2 k/uL (0-0.7); Eosinophils % (A) 2 %; HCT 34.6 % (34.0-46.0); Hypochromasia Slight; Lymphocytes # (A) 0.8 k/uL (1.0-4.8); Lymphocytes % (A) 8 %; MCH 27.7 pg (25.0-35.0); MCHC 31.9 g/dL (31.0-37.0); Mean Platelet Volume 7.1; Monocytes # (A) 0.3 k/uL (0-1.0); Monocytes % (A) 3 %; Neutrophils # (A) 9.5 k/uL (1.3-7.7); Neutrophils % (A) 86 %; Platelet Count 259 k/uL (150-450); RBC 3.98 m/uL (3.80-5.40); RDW 14.3 % (11.5-15.5); WBC 10.9 k/uL (3.8-10.6)
[2022-09-08 11:43] LABS: ALT 28 U/L (4-34); AST 35 U/L (14-36); African American GFR (CKD) >90 (>60 ml/min/1.73 sqM); Albumin 2.4 g/dL (3.5-5.0); Alkaline Phosphatase 96 U/L (38-126); Anion Gap 8 mmol/L; Blood Urea Nitrogen 11 mg/dL (7-17); Carbon Dioxide 23 mmol/L (22-30); Chloride 111 mmol/L (98-107); Glucose 100 mg/dL (74-99); Non-African American GFR(CKD) >90 (>60 ml/min/1.73 sqM); Sodium 142 mmol/L (137-145); Total Bilirubin 0.4 mg/dL (0.2-1.3); Total Protein 4.6 g/dL (6.3-8.2)
[2022-09-08] MEDS ORDERED: Magnesium Replacement Protocol 1 EACH MISC MISCELLANE PRN (12:48)
--- NOTE | 2022-09-08 12:49 | P.CRDCN ---
History of Present Illness Consult date: 09/08/22 Requesting physician: Pool Ramírez Reason for Consult (text): NOS A-fib RVR History of present illness: This is a pleasant 76-year-old female patient who does not follow regularly with cardiology. She is a history of hypertension, denies history of hyperlipidemia or diabetes. She has no documented history of CAD. Has no history of prior arrhythmias. She is a prior smoker, quit about 30 years ago. Has a history of asthma and COPD. Presented to the emergency department with complaints of abdominal pain, nausea and vomiting. She was found to have small bowel obstruction. She underwent small bowel enterotomy with removal large gallstone, partial omentectomy and lysis of adhesions due to small bowel obstruction gallstone ileus on 09/03/2022. She had been recovering well. NG tube has been removed and she was started on a diet she is passing gas. We were asked to see the patient in consultation for new onset atrial fibrillation with rapid ventricular response. Apparently while the nurse was checking vital signs yesterday afternoon she noted the heart rate to be elevated. EKG read as atrial fibrillation with rapid ventricular response. She was initiated on Cardizem drip and transferred to the telemetry unit. She denies feeling rapid heart beat and has had no dizziness or lightheadedness. She's had no chest discomfort. She has some shortness of breath with moving around. She feels quite weak due to lengthy bed rest cream postoperatively. He complains of incisional pain. She's had no nausea or vomiting. She denies any complaints of orthopnea or PND. Denies any edema. Labs show hypokalemia with potassium 3.0. Past Medical History Past Medical History: Asthma, COPD, GERD/Reflux, Osteoarthritis (OA) Additional Past Medical History / Comment(s): collitis rls incontinence, meningioma. History of Any Multi-Drug Resistant Organisms: None Reported Past Surgical History: Hysterectomy Past Psychological History: No Psychological Hx Reported Smoking Status: Never smoker Past Alcohol Use History: None Reported Past Drug Use History: None Reported Medications and Allergies Home Medications Medication Instructions Recorded Confirmed Type Esomeprazole Magnesium [NexIUM] 40 mg PO DAILY 10/12/14 08/30/22 History carBAMazepine [TEGretol] 200 mg PO DAILY 10/12/14 08/30/22 History Aspirin EC [Ecotrin Low Dose] 81 mg PO DAILY 12/06/16 08/30/22 History Montelukast [Singulair] 10 mg PO DAILY 12/06/16 08/30/22 History Oxybutynin Xl [Ditropan XL] 5 mg PO BID 12/06/16 08/30/22 History Losartan Potassium [Cozaar] 100 mg PO DAILY 02/03/20 08/30/22 History ALPRAZolam [Xanax] 0.25 mg PO BID PRN 08/30/22 08/30/22 History Albuterol Inhaler [Ventolin Hfa 2 puff INHALATION RT-Q6H PRN 08/30/22 08/30/22 History Inhaler] Ascorbic Acid [Vitamin C] 500 mg PO DAILY 08/30/22 08/30/22 History Calcium Carbonate [Calcium] 600 mg PO DAILY 08/30/22 08/30/22 History Cholecalciferol [Vitamin D3 (25 25 mcg PO DAILY 08/30/22 08/30/22 History Mcg = 1000 Iu)] Citalopram Hydrobromide [CeleXA] 40 mg PO DAILY 08/30/22 08/30/22 History Cyanocobalamin (Vitamin B-12) 2,500 mcg PO DAILY 08/30/22 08/30/22 History [Vitamin B-12] Ferrous Sulfate [Feosol] 325 mg PO DAILY 08/30/22 08/30/22 History Fish Oil/Dha/Epa [Fish Oil 1,200 2 cap PO DAILY 08/30/22 08/30/22 History mg Fish Oil] Magnesium 420 Mg 420 mg PO DAILY 08/30/22 08/30/22 History Mv-Min/Folic/Vit K/Lut/Xsuy481 1 tab PO DAILY 08/30/22 08/30/22 History [Alive Women's 50 Plus Tablet] Neuriva Brain Supplement 1 cap PO DAILY 08/30/22 08/30/22 History Temazepam [Restoril] 30 mg PO HS 08/30/22 08/30/22 History Travoprost [Travoprost 0.004%] 1 drop BOTH EYES HS 08/30/22 08/30/22 History Vit C/E/Zn/Coppr/Lutein/Zeaxan 1 cap PO BID 08/30/22 08/30/22 History [Preservision Areds 2 Softgel] Vitamin A 2,400 mcg PO DAILY 08/30/22 08/30/22 History amLODIPine [Norvasc] 10 mg PO DAILY 08/30/22 08/30/22 History rOPINIRole HCL [Requip] 0.25 - 0.5 mg PO HS 08/30/22 08/30/22 History Allergies Allergy/AdvReac Type Severity Reaction Status Date / Time No Known Allergies Allergy Verified 08/30/22 14:29 Physical Exam Vitals: Vital Signs Temp Pulse Resp BP BP Pulse Ox 09/08/22 12:20 87 16 163/76 92 L 09/08/22 09:25 92 L 09/08/22 08:43 98.0 F 89 18 160/81 98 09/08/22 03:51 97.8 F 90 18 146/70 94 L 09/08/22 02:00 18 09/08/22 00:00 98.1 F 90 18 160/77 96 09/07/22 20:00 18 09/07/22 19:54 98 F 92 18 162/73 95 09/07/22 16:00 98.2 F 86 18 138/68 94 L 09/07/22 14:45 98.5 F 120 H 18 156/56 93 L 09/07/22 13:55 98.0 F 137 H 18 143/82 94 L Intake and Output 09/07/22 09/08/22 09/08/22 22:59 06:59 14:59 Intake Total 50 198.583 Balance 50 198.583 Intake: Intake, IV Titration 98.583 Amount Diltiazem 125 mg In 98.583 Sodium Chloride 0.9% 100 ml @ 5 MG/HR 5 mls/hr IV .Q24H [facility] Rx#:[id number] Oral 50 100 Other: Voiding Method Bedside Commode Bedside Commode # Voids 1 # Bowel Movements 1 PHYSICAL EXAMINATION: This is a 76-year-old female in no apparent distress at the time of my examination. HEENT: Head is atraumatic, normocephalic. Pupils are equal, round. Sclerae anicteric. Conjunctivae are clear. Mucous membranes of the mouth are moist. Neck is supple. [There is no elevated jugular venous pressure]. No carotid bruit is heard. CHEST EXAMINATION:[ Lungs reveal diminished air entry bilaterally with faint expiratory wheezing throughout. No rales or rhonchi. Respirations even and nonlabored.] HEART EXAMINATION: [ Heart regular, positive S1 and S2. No S3. No S4. Soft systolic murmur. ] ABDOMEN: Tenderness to palpation, midline dressing dry and intact. Bowel sounds are heard. EXTREMITIES:[ 2+ peripheral pulses with no evidence of peripheral edema and no calf tenderness noted]. NEUROLOGIC EXAMINATION: Patient is awake, alert and oriented x3. Results 09/08/22 11:17 09/08/22 11:17 Cardiac Enzymes 09/08/22 Range/Units 11:17 AST 35 (14-36) U/L CBC 09/08/22 Range/Units 11:17 WBC 10.9 H (3.8-10.6) k/uL RBC 3.98 (3.80-5.40) m/uL Hgb 11.0 L (11.4-16.0) gm/dL Hct 34.6 (34.0-46.0) % Plt Count 259 (150-450) k/uL Comprehensive Metabolic Panel 09/08/22 Range/Units 11:17 Sodium 142 (137-145) mmol/L Potassium 3.0 L (3.5-5.1) mmol/L Chloride 111 H (98-107) mmol/L Carbon Dioxide 23 (22-30) mmol/L BUN 11 (7-17) mg/dL Creatinine 0.47 L (0.52-1.04) mg/dL Glucose 100 H (74-99) mg/dL Calcium 8.0 L (8.4-10.2) mg/dL AST 35 (14-36) U/L ALT 28 (4-34) U/L Alkaline Phosphatase 96 (38-126) U/L Total Protein 4.6 L (6.3-8.2) g/dL Albumin 2.4 L (3.5-5.0) g/dL Current Medications Generic Name Dose Route Start Last Admin Trade Name Freq PRN Reason Stop Dose Admin Acetaminophen 650 mg 08/30/22 14:06 09/07/22 19:58 Acetaminophen Tab 325 Mg Tab PO 650 mg Q6HR PRN Administration Mild Pain or Fever > 100.5 Hydrocodone Bitart/Acetaminophen 1 each 09/06/22 10:18 Hydrocodone/Apap 5-325mg 1 Each Tab PO Q4HR PRN Pain Albuterol Sulfate 2.5 mg 09/02/22 10:16 Albuterol Nebulized 2.5 Mg/3 Ml INHALATION RT-Q6H PRN Shortness Of Breath Alprazolam 0.25 mg 09/02/22 10:16 09/04/22 22:05 Alprazolam 0.25 Mg Tab PO 0.25 mg BID PRN Administration Anxiety Amlodipine Besylate 10 mg 09/02/22 10:30 09/08/22 09:36 Amlodipine 10 Mg Tab PO 10 mg DAILY [facility] Administration Aspirin 81 mg 09/03/22 09:00 09/08/22 09:35 Aspirin 81 Mg PO 81 mg DAILY [facility] Administration Calcium Carbonate/Glycine 500 mg 09/03/22 09:00 09/08/22 09:40 Calcium Carbonate 500 Mg Chewable PO Not Given DAILY [facility] Carbamazepine 200 mg 09/02/22 10:30 09/08/22 09:36 Carbamazepine 200 Mg Tab PO 200 mg DAILY [facility] Administration Citalopram Hydrobromide 40 mg 09/02/22 10:30 09/08/22 09:35 Citalopram Hydrobromide 20 Mg Tab PO 40 mg DAILY [facility] Administration Cyanocobalamin 2,500 mcg 09/03/22 09:00 09/08/22 09:36 Cyanocobalamin 500 Mcg Tab PO 2,500 mcg DAILY [facility] Administration Enoxaparin Sodium 40 mg 09/04/22 09:00 09/08/22 09:35 Enoxaparin 40 Mg/0.4 Ml Syringe SQ 40 mg DAILY [facility] Administration Ferrous Sulfate 325 mg 09/03/22 09:00 09/08/22 09:36 Ferrous Sulfate 325 Mg Tab PO 325 mg DAILY [facility] Administration Hydromorphone HCl 0.5 mg 08/30/22 14:06 09/07/22 23:45 Hydromorphone 0.5 Mg/0.5 Ml Syringe IVP 0.5 mg Q3HR PRN Administration Moderate Pain (Scale 4 to 6) Hydromorphone HCl 1 mg 08/30/22 14:06 09/03/22 20:46 Hydromorphone 1 Mg/Ml 1 Ml Syringe IVP 1 mg Q3HR PRN Administration Severe Pain (Scale 7 to 10) Piperacillin Sod/Tazobactam 100 mls @ 25 mls/hr 09/01/22 16:00 09/08/22 09:34 Sod 3.375 gm/ Sodium Chloride IVPB 25 mls/hr Q8HR [facility] Administration Protocol Diltiazem HCl 125 mg/ Sodium 125 mls @ 5 mls/hr 09/07/22 14:45 09/08/22 10:30 Chloride IV 5 mg/hr .Q24H [facility] 5 mls/hr Administration 5 MG/HR Latanoprost 1 drops 09/04/22 21:30 09/07/22 19:59 Latanoprost 0.005% Ophth Drops 2.5 Ml Btl BOTH EYES 1 drops HS [facility] Administration Miscellaneous Information 1 each 09/07/22 14:17 Potassium Replacement Protocol 1 Each Misc MISCELLANE DAILY PRN Per Protocol Protocol Montelukast Sodium 10 mg 09/02/22 10:30 09/08/22 09:35 Montelukast 10 Mg Tab PO 10 mg DAILY [facility] Administration Naloxone HCl 0.2 mg 08/30/22 14:06 Naloxone 0.4 Mg/Ml 1 Ml Vial IV Q2M PRN Opioid Reversal Ondansetron HCl 4 mg 09/01/22 19:13 09/07/22 23:51 Ondansetron 4 Mg/2 Ml Vial IVP 4 mg Q6HR PRN Administration Nausea And Vomiting Oxybutynin Chloride 5 mg 09/02/22 21:00 09/08/22 09:35 Oxybutynin Xl 5 Mg Tab.Er.24 PO 5 mg BID [facility] Administration Pantoprazole Sodium 40 mg 09/02/22 11:15 09/08/22 09:35 Pantoprazole 40 Mg/10 Ml Vial IVP 40 mg DAILY [facility] Administration Ropinirole HCl 0.5 mg 09/01/22 22:15 09/07/22 19:59 Ropinirole Hcl 0.25 Mg Tab PO 0.5 mg HS [facility] Administration Intake and Output 09/07/22 09/08/22 09/08/22 22:59 06:59 14:59 Intake Total 50 198.583 Balance 50 198.583 Intake: Intake, IV Titration 98.583 Amount Diltiazem 125 mg In 98.583 Sodium Chloride 0.9% 100 ml @ 5 MG/HR 5 mls/hr IV .Q24H [facility] Rx#:[id number] Oral 50 100 Other: Voiding Method Bedside Commode Bedside Commode # Voids 1 # Bowel Movements 1 09/08/22 11:17 09/08/22 11:17 Assessment and Plan Assessment: #1 paroxysmal atrial fibrillation #2 Gallstone Ileus status post surgical intervention #3 hypertension #4 COPD Plan: From Cardiology's standpoint we will obtain a 2-D echo with doppler study to assess cardiac structure and function. Check TSH. Start Eliquis 5 mg BID if ok with surgeon. Start beta dustin and discontinue IV cardizem. We will continue to follow the patient and provide further recommendations accordingly. MOLD STRIPPER note has been reviewed, I agree with a documented findings and plan of care. Patient was seen and examined.
--- NOTE | 2022-09-08 13:24 | P.PN ---
Subjective Progress Note Date: 09/08/22 76-year-old female who presents to the emergency department for abdominal pain. States that 2 days ago, she ate pizza with pepperoni. States that the pepperoni was very greasy, and believes that this triggered a gallbladder attack. States she was diagnosed gallstones many years ago, but ended up not h aving surgery, and she cannot recall why. Pain is in the epigastric region. States over the last 2 days, she has also had ongoing nausea and vomiting. She was given Toradol and Zofran by EMS in route with minor improvement in symptoms. She has not had a bowel movement in 2 days and is not passing any gas. Computed tomography scan abdomen and pelvis small bowel obstruction. Zone of transition has a rounded hyperdense area. Consider intussusception and mass within the differential. Gallbladder normal. No kidney masses are evident. Gallbladder ultrasound limited exam as the pancreas and gallbladder not well visualized. Remaining structures demonstrate no definite acute abnormality. Cannot exclude a 2 cm right renal mass. Given the limitations of the exam recommend computed tomography scan of the abdomen Blood work completed in ED revealed the WBC 13.4, hemoglobin of 14.5 and plate let count of 369, sodium of 1. Potassium 3.9, BUN/creatinine of 45/1.78, lactic acid level of 2.5, AST slightly elevated at 40, amylase 74 and lipase normal at 46 -- Patient evaluated by general surgery and NG tube has been removed; patient does report passing some flatus with resolved abdominal pain - Patient is started on a clear liquid diet with resolving small bowel obstruction; plan to advance slowly tomorrow - Continue to monitor strict DOROTHY's and renal function 09/02. Patient seen and examined. Patient having worsening abdominal pain, also having nausea and vomiting. 09/03. Patient seen and examined. Labs done today WBC 10.2, hemoglobin 13, platelet count 300, sodium 141, potassium 3.8, BUN 43, creatinine 1.02 09/04. Patient seen and examined. Status post exploratory laparotomy. Currently has a NG tube in. States she feels much better. 09/05 . Patient seen and examined. Blood pressure is controlled. Currently nothing by mouth, diet per surgery. Patient states she wants to eat something and wants her NG tube out, discussed with her regarding need for her to keep NG in 09/06. Patient seen and examined . States nausea and vomiting has improved a lot. NG tube was removed yesterday. Currently on clear liquid diet 09/07. Patient seen and examined. No acute issues overnight. Vital signs stable 09/08. Patient seen and examined. Patient went into A. fib with RVR yesterday afternoon, was started on Cardizem drip REVIEW OF SYSTEMS: CONSTITUTIONAL: No fever, no malaise,. CARDIOVASCULAR: No chest pain, no palpitations, no syncope. PULMONARY: No shortness of breath, no cough, GASTROINTESTINAL: As mentioned above NEUROLOGICAL: No headaches, no weakness, PHYSICAL EXAMINATION: GENERAL: The patient is alert and oriented x3, not in any acute distress. Well developed, well nourished. HEENT: Pupils are round and equally reacting to light. EOMI. No scleral icterus. No conjunctival pallor. Normocephalic, atraumatic. No pharyngeal erythema. No thyromegaly. CARDIOVASCULAR: S1 and S2 present. No murmurs, rubs, or gallops. PULMONARY: Chest is clear to auscultation, no wheezing or crackles. ABDOMEN: Tender, diminished bowel sounds. No palpable organomegaly. Laparotomy surgical incision seen MUSCULOSKELETAL: No joint swelling or deformity. EXTREMITIES: No cyanosis, clubbing, or pedal edema. NEUROLOGICAL: Gross neurological examination did not reveal any focal deficits. SKIN: No rashes. Assessment and plan Small bowel obstruction status post Small bowel enterotomy with removal of large gallstone, partial omentectomy and lysis of adhesions Diet advanced to full Continue pain management Follow-up in surgery recommendations atrial fibrillation with RVR Continue telemetry monitoring Monitor electrolytes and Ordered 2-D echo Continue Cardizem drip Consult cardiology Hypernatremia Acute renal injury; encourage oral hydration Lactic acidosis; resolved, stop antibiotics Hypertension; patient takes amlodipine 10 mg daily and losartan 100 mg daily; resume Norvasc for now Asthma; not in exacerbation; continue with home inhaler therapy as needed; patient takes Singulair at 10 mg daily Restless leg syndrome; Requip 0.5 mg by mouth daily at bedtime Anxiety/depression; Xanax 0.25 mg twice a day when necessary and Celexa 40 mg daily Labs and medication were reviewed.. Continue same treatment. Continue with symptomatic treatment. Resume home medication. Monitor labs and vitals. DVT and GI prophylaxis. Further recommendations as per clinical course of the patient Objective - Vital Signs Vital signs: Vital Signs Temp 98.0 F 09/08/22 08:43 Pulse 89 09/08/22 08:43 Resp 18 09/08/22 08:43 BP 160/81 09/08/22 08:43 Pulse Ox 92 L 09/08/22 09:25 FiO2 21 09/05/22 08:55 Intake & Output 09/07/22 09/08/22 09/08/22 18:59 06:59 18:59 Intake Total 50 198.583 Balance 50 198.583 Intake: Intake, IV Titration 98.583 Amount Diltiazem 125 mg In 98.583 Sodium Chloride 0.9% 100 ml @ 5 MG/HR 5 mls/hr IV .Q24H [facility] Rx#:[id number] Oral 50 100 Other: Voiding Method Bedside Commode Bedside Commode # Voids 1 # Bowel Movements 1 - Labs CBC & Chem 7: 09/08/22 11:17 09/08/22 11:17
[2022-09-08] MEDS: METOPROLOL TARTRATE 25 MG TAB PO SCH ×2 (13:37→20:07)
[2022-09-08] MEDS: HYDROcodone/APAP 5-325MG 1 EACH TAB PO PRN (13:41)
[2022-09-08] MEDS: MAGNESIUM SULFATE-D5W PMX 1 GM in DEXTROSE/WATER 1 100ML.BAG IVPB SCH ×2 (14:24→16:21)
--- NOTE | 2022-09-08 14:30 | P.PN ---
Subjective Progress Note Date: 09/08/22 CHIEF COMPLAINT: Bowel obstruction HISTORY OF PRESENT ILLNESS: The patient is a 76-year-old female status post bowel resection for gallstone ileus. She is tolerating full liquid diet. She is passing flatus and having bowel movements. She was in atrial fibrillation and started on cardizem drip. She is now in sinus rhythm at the time of evaluation. She reports she cannot tolerate tomato soup. REVIEW OF ORGAN SYSTEMS: CONSTITUTIONAL: No reports of fevers or chills. GI: Denies any blood in stools or constipation. PHYSICAL EXAM: VITAL SIGNS: Stable GENERAL: Well-developed pleasant and in no acute distress. HEENT: No scleral icterus. Extraocular movements grossly intact. Moist buccal mucosa. NECK: Supple without lymphadenopathy. CHEST: Unlabored respirations. Equal bilateral excursions. CARDIOVASCULAR: Regular rate and rhythm. Distal 2+ pulses. ABDOMEN: No peritonitis. Incision intact MUSCULOSKELETAL: No clubbing, cyanosis, or edema. PSYCH: Appropriate affect. Alert and oriented to person, place, and time. LABS: Reviewed. Potassium is low. WBC trending down ASSESSMENT: 1. Gallstone ileus 2. Atrial fibrillation PLAN: 1. Advance diet to low fiber 2. Hold blood thinners pending assessment by Dr. Seay. 3. Abdominal binder ordered. Objective - Vital Signs Vital signs: Vital Signs Temp 98.0 F 09/08/22 08:43 Pulse 87 09/08/22 12:20 Resp 16 09/08/22 12:20 BP 163/76 09/08/22 12:20 Pulse Ox 92 L 09/08/22 12:20 FiO2 21 09/05/22 08:55 Intake & Output 09/07/22 09/08/22 09/08/22 18:59 06:59 18:59 Intake Total 50 198.583 Balance 50 198.583 Intake: Intake, IV Titration 98.583 Amount Diltiazem 125 mg In 98.583 Sodium Chloride 0.9% 100 ml @ 5 MG/HR 5 mls/hr IV .Q24H [facility] Rx#:[id number] Oral 50 100 Other: Voiding Method Bedside Commode Bedside Commode Bedside Commode # Voids 1 # Bowel Movements 1 - Labs CBC & Chem 7: 09/08/22 11:17 09/08/22 11:17 Labs: Abnormal Lab Results - Last 24 Hours (Table) 07/16/23 07/16/23 07/16/23 Range/Units 11:17 11:17 11:17 WBC 10.9 H (3.8-10.6) k/uL Hgb 11.0 L (11.4-16.0) gm/dL Neutrophils # 9.5 H (1.3-7.7) k/uL Lymphocytes # 0.8 L (1.0-4.8) k/uL Potassium 3.0 L (3.5-5.1) mmol/L Chloride 111 H (98-107) mmol/L Creatinine 0.47 L (0.52-1.04) mg/dL Glucose 100 H (74-99) mg/dL Calcium 8.0 L (8.4-10.2) mg/dL Magnesium 1.5 L (1.6-2.3) mg/dL Total Protein 4.6 L (6.3-8.2) g/dL Albumin 2.4 L (3.5-5.0) g/dL
[2022-09-08] MEDS: POTASSIUM CHLORIDE ER 20 MEQ TAB.ER PO SCH ×3 (17:22→20:07)
[2022-09-08] MEDS: LATANOPROST 0.005% OPHTH DROPS 2.5 ML BTL BOTH EYES SCH (20:07)
[2022-09-09] MEDS: PANTOPRAZOLE 40 MG/10 ML VIAL IVP SCH (08:41)
[2022-09-09] MEDS: ASPIRIN 81 MG PO SCH (08:42)
[2022-09-09] MEDS: CYANOCOBALAMIN 500 MCG TAB PO SCH (08:42)
[2022-09-09] MEDS: METOPROLOL TARTRATE 25 MG TAB PO SCH ×2 (08:42→19:56)
[2022-09-09] MEDS: CITALOPRAM HYDROBROMIDE 20 MG TAB PO SCH (08:42)
[2022-09-09] MEDS: MONTELUKAST 10 MG TAB PO SCH (08:42)
[2022-09-09] MEDS: ENOXAPARIN 40 MG/0.4 ML SYRINGE SQ SCH (08:42)
[2022-09-09] MEDS: OXYBUTYNIN XL 5 MG TAB.ER.24 PO SCH ×2 (08:42→19:56)
[2022-09-09] MEDS: amLODIPine 10 MG TAB PO SCH (08:42)
[2022-09-09] MEDS: carBAMazepine 200 MG TAB PO SCH (08:42)
[2022-09-09] MEDS: FERROUS SULFATE 325 MG TAB PO SCH (08:42)
[2022-09-09] MEDS: CALCIUM CARBONATE 500 MG CHEWABLE PO SCH (08:43)
[2022-09-09 09:17] LABS: African American GFR (CKD) >90 (>60 ml/min/1.73 sqM); Anion Gap 5 mmol/L; Blood Urea Nitrogen 12 mg/dL (7-17); Calcium 7.4 mg/dL (8.4-10.2); Carbon Dioxide 26 mmol/L (22-30); Chloride 109 mmol/L (98-107); Glucose 77 mg/dL (74-99); Non-African American GFR(CKD) >90 (>60 ml/min/1.73 sqM); Sodium 140 mmol/L (137-145)
[2022-09-09 09:18] LABS: HCT 34.8 % (34.0-46.0); HGB 10.9 gm/dL (11.4-16.0); MCHC 31.4 g/dL (31.0-37.0); Mean Platelet Volume 8.4; Platelet Count 223 k/uL (150-450); RBC 4.05 m/uL (3.80-5.40); RDW 14.2 % (11.5-15.5)
[2022-09-09 09:20] LABS: Magnesium 1.9 mg/dL (1.6-2.3); Potassium 3.7 mmol/L (3.5-5.1)
--- NOTE | 2022-09-09 13:30 | P.PN ---
Subjective Progress Note Date: 09/09/22 CHIEF COMPLAINT: Small bowel obstruction HISTORY OF PRESENT ILLNESS: Patient is postop day #6 status post Small bowel enterotomy with removal of large gallstone, partial omentectomy and lysis of adhesions. Patient had A. fib RVR over the weekend and is currently on the cardiac floor. Follow per cardiology. She reports her pain is controlled. She is having bowel movements and loose. Denies any nausea vomiting. Tolerating low fiber diet. She does report some lower extremity edema. Denies any sh ortness of breath. WBC is 11 hgb10.9 platelets 223 sodium is 140 potassium 3.7 creatinine 0.43 magnesium 1.9 PHYSICAL EXAM: VITAL SIGNS: Reviewed. GENERAL: Well-developed in no acute distress. ABDOMEN: Soft. Nondistended. Incisional dressing clean dry and intact NEUROLOGIC: Alert and oriented. Cranial nerves II through XII grossly intact. ASSESSMENT: 1. Small bowel obstruction and gallstone ileus status post Small bowel enterotomy with removal of large gallstone, partial omentectomy and lysis of adhesions PLAN: -Continue low fiber diet -Continue pain management -Encouraged patient to increase activity level -Encourage patient to use incentive spirometer -GI prophylaxis Protonix and DVT prophylaxis Lovenox Physician Fur Glosser note has been reviewed by physician. Signing provider agrees with the documented findings, assessment, and plan of care. Objective - Vital Signs Vital signs: Vital Signs Temp 97.9 F 09/09/22 08:00 Pulse 84 09/09/22 08:00 Resp 18 09/09/22 08:00 BP 148/69 09/09/22 08:00 Pulse Ox 99 09/09/22 08:00 FiO2 21 09/05/22 08:55 Intake & Output 09/08/22 09/09/22 09/09/22 18:59 06:59 18:59 Intake Total 418.583 240 Output Total 600 100 Balance 418.583 -360 -100 Intake: Intake, IV Titration 98.583 Amount Diltiazem 125 mg In 98.583 Sodium Chloride 0.9% 100 ml @ 5 MG/HR 5 mls/hr IV .Q24H [facility] Rx#:[id number] Oral 320 240 Output: Stool 600 100 Other: Voiding Method Bedside Commode Bedside Commode # Voids 3 1 - Labs CBC & Chem 7: 09/09/22 08:22 09/09/22 08:22 Labs: Abnormal Lab Results - Last 24 Hours (Table) 09/08/22 09/08/22 09/08/22 Range/Units 11:17 11:17 11:17 WBC 10.9 H (3.8-10.6) k/uL Hgb 11.0 L (11.4-16.0) gm/dL Neutrophils # 9.5 H (1.3-7.7) k/uL Lymphocytes # 0.8 L (1.0-4.8) k/uL Potassium 3.0 L (3.5-5.1) mmol/L Chloride 111 H (98-107) mmol/L Creatinine 0.47 L (0.52-1.04) mg/dL Glucose 100 H (74-99) mg/dL Calcium 8.0 L (8.4-10.2) mg/dL Magnesium 1.5 L (1.6-2.3) mg/dL Total Protein 4.6 L (6.3-8.2) g/dL Albumin 2.4 L (3.5-5.0) g/dL 09/09/22 09/09/22 Range/Units 08:22 08:22 WBC 11.0 H (3.8-10.6) k/uL Hgb 10.9 L (11.4-16.0) gm/dL Neutrophils # (1.3-7.7) k/uL Lymphocytes # (1.0-4.8) k/uL Potassium (3.5-5.1) mmol/L Chloride 109 H (98-107) mmol/L Creatinine 0.43 L (0.52-1.04) mg/dL Glucose (74-99) mg/dL Calcium 7.4 L (8.4-10.2) mg/dL Magnesium (1.6-2.3) mg/dL Total Protein (6.3-8.2) g/dL Albumin (3.5-5.0) g/dL
--- NOTE | 2022-09-09 13:41 | P.PN ---
Subjective Progress Note Date: 09/09/22 76-year-old female who presents to the emergency department for abdominal pain. States that 2 days ago, she ate pizza with pepperoni. States that the pepperoni was very greasy, and believes that this triggered a gallbladder attack. States she was diagnosed gallstones many years ago, but ended up not h aving surgery, and she cannot recall why. Pain is in the epigastric region. States over the last 2 days, she has also had ongoing nausea and vomiting. She was given Toradol and Zofran by EMS in route with minor improvement in symptoms. She has not had a bowel movement in 2 days and is not passing any gas. Computed tomography scan abdomen and pelvis small bowel obstruction. Zone of transition has a rounded hyperdense area. Consider intussusception and mass within the differential. Gallbladder normal. No kidney masses are evident. Gallbladder ultrasound limited exam as the pancreas and gallbladder not well visualized. Remaining structures demonstrate no definite acute abnormality. Cannot exclude a 2 cm right renal mass. Given the limitations of the exam recommend computed tomography scan of the abdomen Blood work completed in ED revealed the WBC 13.4, hemoglobin of 14.5 and plate let count of 369, sodium of 1. Potassium 3.9, BUN/creatinine of 45/1.78, lactic acid level of 2.5, AST slightly elevated at 40, amylase 74 and lipase normal at 46 -- Patient evaluated by general surgery and NG tube has been removed; patient does report passing some flatus with resolved abdominal pain - Patient is started on a clear liquid diet with resolving small bowel obstruction; plan to advance slowly tomorrow - Continue to monitor strict DOROTHY's and renal function 09/02. Patient seen and examined. Patient having worsening abdominal pain, also having nausea and vomiting. 09/03. Patient seen and examined. Labs done today WBC 10.2, hemoglobin 13, platelet count 300, sodium 141, potassium 3.8, BUN 43, creatinine 1.02 09/04. Patient seen and examined. Status post exploratory laparotomy. Currently has a NG tube in. States she feels much better. 09/05 . Patient seen and examined. Blood pressure is controlled. Currently nothing by mouth, diet per surgery. Patient states she wants to eat something and wants her NG tube out, discussed with her regarding need for her to keep NG in 09/06. Patient seen and examined . States nausea and vomiting has improved a lot. NG tube was removed yesterday. Currently on clear liquid diet 09/07. Patient seen and examined. No acute issues overnight. Vital signs stable 09/08. Patient seen and examined. Patient went into A. fib with RVR yesterday afternoon, was started on Cardizem drip 09/09. Patient seen and examined. Cardiology evaluated the patient, started on Lopressor, oral anticoagulation once okay with surgery. Discussed with surgery, they were okay with patient being started on Eliquis REVIEW OF SYSTEMS: CONSTITUTIONAL: No fever, no malaise,. CARDIOVASCULAR: No chest pain, no palpitations, no syncope. PULMONARY: No shortness of breath, no cough, GASTROINTESTINAL: As mentioned above NEUROLOGICAL: No headaches, no weakness, PHYSICAL EXAMINATION: GENERAL: The patient is alert and oriented x3, not in any acute distress. Well developed, well nourished. HEENT: Pupils are round and equally reacting to light. EOMI. No scleral icterus. No conjunctival pallor. Normocephalic, atraumatic. No pharyngeal erythema. No thyromegaly. CARDIOVASCULAR: S1 and S2 present. No murmurs, rubs, or gallops. PULMONARY: Chest is clear to auscultation, no wheezing or crackles. ABDOMEN: Tender, diminished bowel sounds. No palpable organomegaly. Laparotomy surgical incision seen MUSCULOSKELETAL: No joint swelling or deformity. EXTREMITIES: No cyanosis, clubbing, or pedal edema. NEUROLOGICAL: Gross neurological examination did not reveal any focal deficits. SKIN: No rashes. Assessment and plan Small bowel obstruction status post Small bowel enterotomy with removal of large gallstone, partial omentectomy and lysis of adhesions Diet advanced to regular Continue pain management Follow-up in surgery recommendations atrial fibrillation with RVR Continue telemetry monitoring Monitor electrolytes and Follow-up on 2-D echo Continue Lopressor Start Eliquis follow-up on cardiology recommendations Hypernatremia Acute renal injury; encourage oral hydration Lactic acidosis; resolved, stop antibiotics Hypertension; patient takes amlodipine 10 mg daily and losartan 100 mg daily; resume Norvasc for now Asthma; not in exacerbation; continue with home inhaler therapy as needed; patient takes Singulair at 10 mg daily Restless leg syndrome; Requip 0.5 mg by mouth daily at bedtime Anxiety/depression; Xanax 0.25 mg twice a day when necessary and Celexa 40 mg daily Labs and medication were reviewed.. Continue same treatment. Continue with symptomatic treatment. Resume home medication. Monitor labs and vitals. DVT and GI prophylaxis. Further recommendations as per clinical course of the patient Objective - Vital Signs Vital signs: Vital Signs Temp 97.9 F 09/09/22 08:00 Pulse 84 09/09/22 08:00 Resp 18 09/09/22 08:00 BP 148/69 09/09/22 08:00 Pulse Ox 99 09/09/22 08:00 FiO2 21 09/05/22 08:55 Intake & Output 09/08/22 09/09/22 09/09/22 18:59 06:59 18:59 Intake Total 418.583 240 Output Total 600 100 Balance 418.583 -360 -100 Intake: Intake, IV Titration 98.583 Amount Diltiazem 125 mg In 98.583 Sodium Chloride 0.9% 100 ml @ 5 MG/HR 5 mls/hr IV .Q24H [facility] Rx#:[id number] Oral 320 240 Output: Stool 600 100 Other: Voiding Method Bedside Commode Bedside Commode # Voids 3 1 - Labs CBC & Chem 7: 09/09/22 08:22 09/09/22 08:22 Labs: Abnormal Lab Results - Last 24 Hours (Table) 09/08/22 09/08/22 09/08/22 Range/Units 11:17 11:17 11:17 WBC 10.9 H (3.8-10.6) k/uL Hgb 11.0 L (11.4-16.0) gm/dL Neutrophils # 9.5 H (1.3-7.7) k/uL Lymphocytes # 0.8 L (1.0-4.8) k/uL Potassium 3.0 L (3.5-5.1) mmol/L Chloride 111 H (98-107) mmol/L Creatinine 0.47 L (0.52-1.04) mg/dL Glucose 100 H (74-99) mg/dL Calcium 8.0 L (8.4-10.2) mg/dL Magnesium 1.5 L (1.6-2.3) mg/dL Total Protein 4.6 L (6.3-8.2) g/dL Albumin 2.4 L (3.5-5.0) g/dL 09/09/22 09/09/22 Range/Units 08:22 08:22 WBC 11.0 H (3.8-10.6) k/uL Hgb 10.9 L (11.4-16.0) gm/dL Neutrophils # (1.3-7.7) k/uL Lymphocytes # (1.0-4.8) k/uL Potassium (3.5-5.1) mmol/L Chloride 109 H (98-107) mmol/L Creatinine 0.43 L (0.52-1.04) mg/dL Glucose (74-99) mg/dL Calcium 7.4 L (8.4-10.2) mg/dL Magnesium (1.6-2.3) mg/dL Total Protein (6.3-8.2) g/dL Albumin (3.5-5.0) g/dL
--- NOTE | 2022-09-09 14:46 | CA ---
Transthoracic Echo Report Name: Ranjana Doyle Age: 76 Gender: F : 1945 Exam Date: 09/09/2022 08:52 Exam Location: [place] [facility] Ht (in): 60 Wt (lb): 112 Ordering Physician: Ana Maria Ordonez Attending/Referring Phys: [id number] Physician Jenny Mayberry [facility] Procedure CPT: Indications: new onset paroxysmal atrial fibrillation Cardiac Hx: Technical Quality: Technically difficult study Contrast 1: Total Dose (mL): Contrast 2: Total Dose (mL): MEASUREMENTS (Male / Female) Normal Values 2D ECHO LV Diastolic Diameter PLAX 3.7 cm 4.2 - 5.9 / 3.9 - 5.3 cm LV Systolic Diameter PLAX 2.6 cm IVS Diastolic Thickness 0.8 cm 0.6 - 1.0 / 0.6 - 0.9 cm LVPW Diastolic Thickness 0.7 cm 0.6 - 1.0 / 0.6 - 0.9 cm LV Relative Wall Thickness 0.4 LVOT Diameter 2.0 cm M-MODE Aortic Root Diameter MM 2.6 cm LA Systolic Diameter MM 2.5 cm LA Ao Ratio MM 1.0 AV Cusp Separation MM 2.0 cm DOPPLER AV Peak Velocity 130.1 cm/s AV Peak Gradient 6.8 mmHg AV Mean Velocity 84.0 cm/s AV Mean Gradient 3.3 mmHg AV Velocity Time Integral 25.9 cm LVOT Peak Velocity 112.4 cm/s LVOT Peak Gradient 5.0 mmHg LVOT Velocity Time Integral 23.1 cm LVOT Stroke Volume 71.1 cm??? LVOT Stroke Volume Index 48.7 ml/m??? LVOT Cardiac Index 4060.3 cm???/min???m??? AV Area Cont Eq vti 2.7 cm??? AV Area Cont Eq pk 2.7 cm??? Mitral E Point Velocity 83.1 cm/s Mitral A Point Velocity 70.7 cm/s Mitral E to A Ratio 1.2 MV Deceleration Time 207.1 ms LV E' Lateral Velocity 12.3 cm/s Mitral E to LV E' Lateral Ratio 6.8 LV E' Septal Velocity 8.1 cm/s Mitral E to LV E' Septal Ratio 10.3 TR Peak Velocity 296.4 cm/s TR Peak Gradient 35.1 mmHg Right Atrial Pressure 8.0 mmHg Pulmonary Artery Systolic Pressu 43.1 mmHg Right Ventricular Systolic Press 43.1 mmHg FINDINGS Left Ventricle Normal left ventricular size, wall thickness, systolic function with no obvious regional wall motion abnormalities. The ejection fraction is visually estimated at 55-60%. Diastolic function could not be assessed due to underlying atrial fibrillation Right Ventricle Right ventricle not well visualized. Moderate pulmonary hypertension. RVSP 38 mmHg Right Atrium Right atrium not well visualized. Left Atrium The left atrium is normal in size. Mitral Valve Mild mitral annular calcification. No mitral regurgitation. Aortic Valve Aortic valve not well visualized. No aortic regurgitation. Tricuspid Valve Structurally normal tricuspid valve without significant stenosis. Mild tricuspid regurgitation. RVSP 38 mmHg Pulmonic Valve Pulmonic valve not well visualized. There is no pulmonic regurgitation. Pericardium No pericardial effusion. Aorta Normal aortic root dimension. CONCLUSIONS Technically difficult study Normal LV size and systolic function. EF is estimated at 55-60% No obvious regional wall motion abnormality. No significant valvular dysfunction. Moderate pulmonary hypertension, with RVSP estimated at 38 mmHg No prior echo to compare with Previewed by: Dr Ace Murcia (Electronically Signed) Final Date: 09 September 2022 14:45
--- NOTE | 2022-09-09 19:06 | P.PN ---
Subjective Progress Note Date: 09/09/22 History of present illness: This is a pleasant 76-year-old female patient who does not follow regularly with cardiology. She is a history of hypertension, denies history of hyperlipidemia or diabetes. She has no documented history of CAD. Has no history of prior arrhythmias. She is a prior smoker, quit about 30 years ago. Has a history of asthma and COPD. Presented to the emergency department with complaints of abdominal pain, nausea and vomiting. She was found to have small bowel obstruction. She underwent small bowel enterotomy with removal large gallstone, partial omentectomy and lysis of adhesions due to small bowel obstruction gallstone ileus on 09/03/2022. She had been recovering well. NG tube has been removed and she was started on a diet she is passing gas. We were asked to see the patient in consultation for new onset atrial fibrillation with rapid ventricular response. Apparently while the nurse was checking vital signs yesterday afternoon she noted the heart rate to be elevated. EKG read as atrial fibrillation with rapid ventricular response. She was initiated on Cardizem drip and transferred to the telemetry unit. She denies feeling rapid heart beat and has had no dizziness or lightheadedness. She's had no chest discomfort. She has some shortness of breath with moving around. She feels quite weak due to lengthy bed rest cream postoperatively. He complains of incisional pain. She's had no nausea or vomiting. She denies any complaints of orthopnea or PND. Denies any edema. Labs show hypokalemia with potassium 3.0. 09/09 Patient is seen today in follow-up. She is in a sinus rhythm. She denies having any palpitations or chest pain. She is tolerating a diet at this time. No signs of bleeding. Echocardiogram reveals difficult study. EF 55-60%, moderate pulmonary HTN with RVSP 38 mmhg. Physical examination: PHYSICAL EXAMINATION: This is a 76-year-old female in no apparent distress at the time of my examination. HEENT: Head is atraumatic, normocephalic. Pupils are equal, round. Sclerae anicteric. Conjunctivae are clear. Mucous membranes of the mouth are moist. Neck is supple. [There is no elevated jugular venous pressure]. No carotid bruit is heard. CHEST EXAMINATION:[ Lungs reveal diminished air entry bilaterally with faint expiratory wheezing throughout. No rales or rhonchi. Respirations even and nonlabored.] HEART EXAMINATION: [ Heart regular, positive S1 and S2. No S3. No S4. Soft systolic murmur. ABDOMEN: Tenderness to palpation, midline dressing dry and intact. Bowel sounds are heard. EXTREMITIES:[ 2+ peripheral pulses with no evidence of peripheral edema and no calf tenderness noted]. NEUROLOGIC EXAMINATION: Patient is awake, alert and oriented x3. Assessment: Paroxysmal atrial fibrillation Gallstone Ileus status post surgical intervention hypertension COPD Plan: Continue patient on Eliquis 5 mg bid and Lopressor 25 mg bid Further recommendations to follow based upon clinical course Nurse practitioner note has been reviewed, I agree with documented findings and plan of care. Patient was seen and examined.09/09 Objective - Vital Signs Vital signs: Vital Signs Temp 98.1 F 09/09/22 12:00 Pulse 75 09/09/22 12:00 Resp 18 09/09/22 13:28 BP 139/62 09/09/22 12:00 Pulse Ox 98 09/09/22 12:00 FiO2 21 09/05/22 08:55 Intake & Output 09/08/22 09/09/22 09/09/22 18:59 06:59 18:59 Intake Total 418.583 240 Output Total 600 200 Balance 418.583 -360 -200 Intake: Intake, IV Titration 98.583 Amount Diltiazem 125 mg In 98.583 Sodium Chloride 0.9% 100 ml @ 5 MG/HR 5 mls/hr IV .Q24H [facility] Rx#:[id number] Oral 320 240 Output: Stool 600 200 Other: Voiding Method Bedside Commode Bedside Commode # Voids 3 1 - Labs CBC & Chem 7: 09/09/22 08:22 09/09/22 08:22 Labs: Abnormal Lab Results - Last 24 Hours (Table) 09/09/22 09/09/22 Range/Units 08:22 08:22 WBC 11.0 H (3.8-10.6) k/uL Hgb 10.9 L (11.4-16.0) gm/dL Chloride 109 H (98-107) mmol/L Creatinine 0.43 L (0.52-1.04) mg/dL Calcium 7.4 L (8.4-10.2) mg/dL
[2022-09-09] MEDS: APIXABAN 5 MG TAB PO SCH (19:56)
[2022-09-09] MEDS: LATANOPROST 0.005% OPHTH DROPS 2.5 ML BTL BOTH EYES SCH (19:56)
[2022-09-10 08:17] LABS: Basophils % (A) 0 %; Eosinophils # (A) 0.2 k/uL (0-0.7); Eosinophils % (A) 2 %; HCT 35.8 % (34.0-46.0); HGB 11.3 gm/dL (11.4-16.0); Lymphocytes # (A) 1.1 k/uL (1.0-4.8); Lymphocytes % (A) 12 %; MCHC 31.6 g/dL (31.0-37.0); MCV 85.3 fL (80.0-100.0); Mean Platelet Volume 8.3; Monocytes # (A) 0.4 k/uL (0-1.0); Monocytes % (A) 4 %; Neutrophils # (A) 7.6 k/uL (1.3-7.7); Neutrophils % (A) 81 %; Platelet Count 257 k/uL (150-450); RBC 4.19 m/uL (3.80-5.40); RDW 14.3 % (11.5-15.5); WBC 9.3 k/uL (3.8-10.6)
[2022-09-10 09:21] LABS: African American GFR (CKD) >90 (>60 ml/min/1.73 sqM); Anion Gap 8 mmol/L; Blood Urea Nitrogen 11 mg/dL (7-17); Calcium 7.7 mg/dL (8.4-10.2); Carbon Dioxide 22 mmol/L (22-30); Chloride 107 mmol/L (98-107); Glucose 85 mg/dL (74-99); Non-African American GFR(CKD) >90 (>60 ml/min/1.73 sqM); Potassium 3.2 mmol/L (3.5-5.1); Sodium 137 mmol/L (137-145)
[2022-09-10 09:34] VITALS: RESP 16
[2022-09-10 09:37] VITALS: TEMP 97
[2022-09-10] MEDS: MONTELUKAST 10 MG TAB PO SCH (09:43)
[2022-09-10] MEDS: METOPROLOL TARTRATE 25 MG TAB PO SCH (09:43)
[2022-09-10] MEDS: CITALOPRAM HYDROBROMIDE 20 MG TAB PO SCH (09:43)
[2022-09-10] MEDS: HYDROcodone/APAP 5-325MG 1 EACH TAB PO PRN (09:43)
[2022-09-10] MEDS: POTASSIUM CHLORIDE ER 20 MEQ TAB.ER PO SCH ×2 (09:43→12:47)
[2022-09-10] MEDS: CYANOCOBALAMIN 500 MCG TAB PO SCH (09:43)
[2022-09-10] MEDS: PANTOPRAZOLE 40 MG/10 ML VIAL IVP SCH (09:44)
[2022-09-10] MEDS: carBAMazepine 200 MG TAB PO SCH (09:44)
[2022-09-10] MEDS: OXYBUTYNIN XL 5 MG TAB.ER.24 PO SCH (09:44)
[2022-09-10] MEDS: FERROUS SULFATE 325 MG TAB PO SCH (09:44)
[2022-09-10] MEDS: APIXABAN 5 MG TAB PO SCH (09:44)
[2022-09-10] MEDS: amLODIPine 10 MG TAB PO SCH (09:44)
[2022-09-10] MEDS: CALCIUM CARBONATE 500 MG CHEWABLE PO SCH (09:46)
--- NOTE | 2022-09-10 09:58 | P.PN ---
Subjective Progress Note Date: 09/10/22 CHIEF COMPLAINT: Small bowel obstruction HISTORY OF PRESENT ILLNESS: Patient is postop day #7 status post Small bowel enterotomy with removal of large gallstone, partial omentectomy and lysis of adhesions. Patient denies any abdominal pain. She is having bowel movements that are loose. She is requesting a regular diet and sit with low fiber. Denies any nausea or vomiting. Her lower extremity edema slightly better. She is sitting in bedside chair. Afebrile. WBC is down from 11-9.3 Hgb 11.3 justyna telets 257 Na 137 potassium is 3.2 creatinine 0.39 calcium 7.7 patient started on Eliquis for new Afib Patient seen by Dr. Ledbetter who is covering for Dr. Seay PHYSICAL EXAM: VITAL SIGNS: Reviewed. GENERAL: Well-developed in no acute distress. ABDOMEN: Soft. Nondistended. Incision clean dry and intact NEUROLOGIC: Alert and oriented. Cranial nerves II through XII grossly intact. ASSESSMENT: 1. Small bowel obstruction and gallstone ileus status post Small bowel enterotomy with removal of large gallstone, partial omentectomy and lysis of adhesions 2. Hypokalemia PLAN: -Change diet to regular -Patient can be discharge from surgical standpoint when medically cleared -Patient can shower -Apply ABD guaze pad to incision after shower -Continue pain management -Medicine service replacing potassium -Encouraged patient to increase activity level -Encourage patient to use incentive spirometer -GI prophylaxis Protonix and DVT prophylaxis Lovenox Physician Nuclear Medicine Tech note has been reviewed by physician. Signing provider agrees with the documented findings, assessment, and plan of care. Objective - Vital Signs Vital signs: Vital Signs Temp 97 F L 09/10/22 08:00 Pulse 76 09/10/22 08:00 Resp 16 09/10/22 08:00 BP 151/68 09/10/22 08:00 Pulse Ox 96 09/10/22 08:00 FiO2 21 09/05/22 08:55 Intake & Output 09/09/22 09/10/22 09/10/22 18:59 06:59 18:59 Intake Total 200 Output Total 200 Balance 0 Weight 50.9 kg Intake: Oral 200 Output: Stool 200 Other: Voiding Method Bedside Commode # Voids 3 2 1 # Bowel Movements 4 1 - Labs CBC & Chem 7: 09/10/22 07:23 09/10/22 07:23 Labs: Abnormal Lab Results - Last 24 Hours (Table) 09/10/22 09/10/22 Range/Units 07: 07:23 Hgb 11.3 L (11.4-16.0) gm/dL Potassium 3.2 L (3.5-5.1) mmol/L Creatinine 0.39 L (0.52-1.04) mg/dL Calcium 7.7 L (8.4-10.2) mg/dL
[2022-09-10 12:53] VITALS: BP 153/67; PULSE 65
--- NOTE | 2022-09-10 13:58 | P.DS ---
Providers Date of admission: 08/30/22 12:32 Expected date of discharge: 09/10/22 Attending physician: Adrián Leonardo MD Consults: 08/30/22 14:06 Consult Physician Urgent Consulting Provider: Blaine Seay Consult Reason/Comments: SBO Do you want consulting provider notified?: Already Contacted 09/07/22 14:35 Consult Physician Routine Consulting Provider: Radha Viveros Consult Reason/Comments: NOS A-fib RVR Do you want consulting provider notified?: Already Contacted Primary care physician: Brenda Wall Hospital Course: Discharge diagnoses; Small bowel obstruction status post Small bowel enterotomy with removal of large gallstone, partial omentectomy and lysis of adhesions Diet advanced to regular Surgery cleared the patient for discharge atrial fibrillation with RVR Continue Lopressor Continue Eliquis follow-up on cardiology recommendations Hypernatremia Acute renal injury; resolved Lactic acidosis; resolved, stop antibiotics Hypertension; patient takes amlodipine 10 mg daily and losartan 100 mg daily Asthma; not in exacerbation; continue with home inhaler therapy as needed; patient takes Singulair at 10 mg daily Restless leg syndrome; Requip 0.5 mg by mouth daily at bedtime Anxiety/depression; Xanax 0.25 mg twice a day when necessary and Celexa 40 mg daily Hospital course; 76-year-old female who presents to the emergency department for abdominal pain. States that 2 days ago, she ate pizza with pepperoni. States that the pepperoni was very greasy, and believes that this triggered a gallbladder attack. States she was diagnosed gallstones many years ago, but ended up not having surgery, and she cannot recall why. Pain is in the epigastric region. States over the last 2 days, she has also had ongoing nausea and vomiting. She was given Toradol and Zofran by EMS in route with minor improvement in symptoms. She has not had a bowel movement in 2 days and is not passing any gas. Computed tomography scan abdomen and pelvis small bowel obstruction. Zone of transition has a rounded hyperdense area. Consider intussusception and mass within the differential. Gallbladder normal. No kidney masses are evident. Gallbladder ultrasound limited exam as the pancreas and gallbladder not well visualized. Remaining structures demonstrate no definite acute abnormality. Cannot exclude a 2 cm right renal mass. Given the limitations of the exam recommend computed tomography scan of the abdomen Blood work completed in ED revealed the WBC 13.4, hemoglobin of 14.5 and platelet count of 369, sodium of 1. Potassium 3.9, BUN/creatinine of 45/1.78, lactic acid level of 2.5, AST slightly elevated at 40, amylase 74 and lipase normal at 46 -- Patient evaluated by general surgery and NG tube has been removed; patient does report passing some flatus with resolved abdominal pain - Patient is started on a clear liquid diet with resolving small bowel obstruction; plan to advance slowly tomorrow - Continue to monitor strict DOROTHY's and renal function 09/02. Patient seen and examined. Patient having worsening abdominal pain, also having nausea and vomiting. 09/03. Patient seen and examined. Labs done today WBC 10.2, hemoglobin 13, platelet count 300, sodium 141, potassium 3.8, BUN 43, creatinine 1.02 09/04. Patient seen and examined. Status post exploratory laparotomy. Currently has a NG tube in. States she feels much better. 09/05 . Patient seen and examined. Blood pressure is controlled. Currently nothing by mouth, diet per surgery. Patient states she wants to eat something and wants her NG tube out, discussed with her regarding need for her to keep NG in 09/06. Patient seen and examined . States nausea and vomiting has improved a lot. NG tube was removed yesterday. Currently on clear liquid diet 09/07. Patient seen and examined. No acute issues overnight. Vital signs stable 09/08. Patient seen and examined. Patient went into A. fib with RVR yesterday afternoon, was started on Cardizem drip 09/09. Patient seen and examined. Cardiology evaluated the patient, started on Lopressor, oral anticoagulation once okay with surgery. Discussed with surgery, they were okay with patient being started on Eliquis 09/10. Patient seen and examined. Tolerating regular diet, surgery cleared the patient for discharge PHYSICAL EXAMINATION: GENERAL: The patient is alert and oriented x3, not in any acute distress. Well developed, well nourished. HEENT: Pupils are round and equally reacting to light. EOMI. No scleral icterus. No conjunctival pallor. Normocephalic, atraumatic. No pharyngeal erythema. No thyromegaly. CARDIOVASCULAR: S1 and S2 present. No murmurs, rubs, or gallops. PULMONARY: Chest is clear to auscultation, no wheezing or crackles. ABDOMEN: Soft, nontender, nondistended, normoactive bowel sounds. No palpable organomegaly. Surgical incision seen MUSCULOSKELETAL: No joint swelling or deformity. EXTREMITIES: No cyanosis, clubbing, or pedal edema. NEUROLOGICAL: Gross neurological examination did not reveal any focal deficits. SKIN: No rashes. Dictation was produced using [employer] dictation software. please excuse any grammatical, word or spelling errors. Patient Condition at Discharge: Good Plan - Discharge Summary Discharge Rx Participant: Yes New Discharge Prescriptions: New HYDROcodone/APAP 5-325MG [[place] 5-325] 1 tab PO Q6HR PRN 3 Days #12 tab PRN Reason: Pain Apixaban [Eliquis] 5 mg PO BID #60 tab Metoprolol Tartrate [Lopressor] 25 mg PO BID #60 tab Continue carBAMazepine [TEGretol] 200 mg PO DAILY Esomeprazole Magnesium [NexIUM] 40 mg PO DAILY Oxybutynin Xl [Ditropan XL] 5 mg PO BID Montelukast [Singulair] 10 mg PO DAILY Aspirin EC [Ecotrin Low Dose] 81 mg PO DAILY Losartan Potassium [Cozaar] 100 mg PO DAILY Albuterol Inhaler [Ventolin Hfa Inhaler] 2 puff INHALATION RT-Q6H PRN PRN Reason: Shortness Of Breath Travoprost [Travoprost 0.004%] 1 drop BOTH EYES HS Temazepam [Restoril] 30 mg PO HS Neuriva Brain Supplement 1 cap PO DAILY Vitamin A 2,400 mcg PO DAILY Cholecalciferol [Vitamin D3 (25 Mcg = 1000 Iu)] 25 mcg PO DAILY Fish Oil/Dha/Epa [Fish Oil 1,200 mg Fish Oil] 2 cap PO DAILY Cyanocobalamin (Vitamin B-12) [Vitamin B-12] 2,500 mcg PO DAILY rOPINIRole HCL [Requip] 0.25 - 0.5 mg PO HS amLODIPine [Norvasc] 10 mg PO DAILY ALPRAZolam [Xanax] 0.25 mg PO BID PRN PRN Reason: Anxiety Calcium Carbonate [Calcium] 600 mg PO DAILY Citalopram Hydrobromide [CeleXA] 40 mg PO DAILY Ferrous Sulfate [Iron (65 MG Elemental)] 325 mg PO DAILY Mv-Min/Folic/Vit K/Lut/[id number] [Alive Women's 50 Plus Tablet] 1 tab PO DAILY Magnesium 420 Mg 420 mg PO DAILY Ascorbic Acid [Vitamin C] 500 mg PO DAILY Vit C/E/Zn/Coppr/Lutein/Zeaxan [Preservision Areds 2 Softgel] 1 cap PO BID Discharge Medication List Esomeprazole Magnesium [NexIUM] 40 mg PO DAILY 10/12/14 [History] carBAMazepine [TEGretol] 200 mg PO DAILY 10/12/14 [History] Aspirin EC [Ecotrin Low Dose] 81 mg PO DAILY 12/06/16 [History] Montelukast [Singulair] 10 mg PO DAILY 12/06/16 [History] Oxybutynin Xl [Ditropan XL] 5 mg PO BID 12/06/16 [History] Losartan Potassium [Cozaar] 100 mg PO DAILY 02/03/20 [History] ALPRAZolam [Xanax] 0.25 mg PO BID PRN 08/30/22 [History] Albuterol Inhaler [Ventolin Hfa Inhaler] 2 puff INHALATION RT-Q6H PRN 08/30/22 [History] Ascorbic Acid [Vitamin C] 500 mg PO DAILY 08/30/22 [History] Calcium Carbonate [Calcium] 600 mg PO DAILY 08/30/22 [History] Cholecalciferol [Vitamin D3 (25 Mcg = 1000 Iu)] 25 mcg PO DAILY 08/30/22 [History] Citalopram Hydrobromide [CeleXA] 40 mg PO DAILY 08/30/22 [History] Cyanocobalamin (Vitamin B-12) [Vitamin B-12] 2,500 mcg PO DAILY 08/30/22 [History] Ferrous Sulfate [Iron (65 MG Elemental)] 325 mg PO DAILY 08/30/22 [History] Fish Oil/Dha/Epa [Fish Oil 1,200 mg Fish Oil] 2 cap PO DAILY 08/30/22 [History] Magnesium 420 Mg 420 mg PO DAILY 08/30/22 [History] Mv-Min/Folic/Vit K/[id number]/[id number] [Alive Women's 50 Plus Tablet] 1 tab PO DAILY 08/30/22 [History] Neuriva Brain Supplement 1 cap PO DAILY 08/30/22 [History] Temazepam [Restoril] 30 mg PO HS 08/30/22 [History] Travoprost [Travoprost 0.004%] 1 drop BOTH EYES HS 08/30/22 [History] Vit C/E/Zn/Coppr/Lutein/Zeaxan [Preservision Areds 2 Softgel] 1 cap PO BID 08/30/22 [History] Vitamin A 2,400 mcg PO DAILY 08/30/22 [History] amLODIPine [Norvasc] 10 mg PO DAILY 08/30/22 [History] rOPINIRole HCL [Requip] 0.25 - 0.5 mg PO HS 08/30/22 [History] Apixaban [Eliquis] 5 mg PO BID #60 tab 09/10/22 [Rx] HYDROcodone/APAP 5-325MG [[place] 5-325] 1 tab PO Q6HR PRN 3 Days #12 tab 09/10/22 [Rx] Metoprolol Tartrate [Lopressor] 25 mg PO BID #60 tab 09/10/22 [Rx] Follow up Appointment(s)/Referral(s): Brenda Wall MD [Primary Care Provider] - 1-2 days Blaine Seay MD [STAFF PHYSICIAN] - 1 Week Phani Rome DO [STAFF PHYSICIAN] - 1 Week Discharge Disposition: HOME WITH HOME HEALTH SERVICES
--- NOTE | 2022-09-10 15:07 | P.PN ---
Subjective Progress Note Date: 09/10/22 History of present illness: This is a pleasant 76-year-old female patient who does not follow regularly with cardiology. She is a history of hypertension, denies history of hyperlipidemia or diabetes. She has no documented history of CAD. Has no history of prior arrhythmias. She is a prior smoker, quit about 30 years ago. Has a history of asthma and COPD. Presented to the emergency department with complaints of abdominal pain, nausea and vomiting. She was found to have small bowel obstruction. She underwent small bowel enterotomy with removal large gallstone, partial omentectomy and lysis of adhesions due to small bowel obstruction gallstone ileus on 09/03/2022. She had been recovering well. NG tube has been removed and she was started on a diet she is passing gas. We were asked to see the patient in consultation for new onset atrial fibrillation with rapid ventricular response. Apparently while the nurse was checking vital signs yesterday afternoon she noted the heart rate to be elevated. EKG read as atrial fibrillation with rapid ventricular response. She was initiated on Cardizem drip and transferred to the telemetry unit. She denies feeling rapid heart beat and has had no dizziness or lightheadedness. She's had no chest discomfort. She has some shortness of breath with moving around. She feels quite weak due to lengthy bed rest cream postoperatively. He complains of incisional pain. She's had no nausea or vomiting. She denies any complaints of orthopnea or PND. Denies any edema. Labs show hypokalemia with potassium 3.0. 09/09 Patient is seen today in follow-up. She is in a sinus rhythm. She denies having any palpitations or chest pain. She is tolerating a diet at this time. No signs of bleeding. Echocardiogram reveals difficult study. EF 55-60%, moderate pulmonary HTN with RVSP 38 mmhg. 09/10 Patient denies having any chest pain or pressure. No shortness of breath. She denies any racing sensation or palpitations. She does state she has not much appetite. He is lower extremity edema is improving. Telemetry is a sinus rhythm in the 60s. Physical examination: PHYSICAL EXAMINATION: This is a 76-year-old female in no apparent distress at the time of my examination. HEENT: Head is atraumatic, normocephalic. Pupils are equal, round. Sclerae anicteric. Conjunctivae are clear. Mucous membranes of the mouth are moist. Neck is supple. [There is no elevated jugular venous pressure]. No carotid bruit is heard. CHEST EXAMINATION:[ Lungs reveal diminished air entry bilaterally with faint expiratory wheezing throughout. No rales or rhonchi. Respirations even and nonlabored.] HEART EXAMINATION: [ Heart regular, positive S1 and S2. No S3. No S4. Soft systolic murmur. ABDOMEN: Tenderness to palpation, midline dressing dry and intact. Bowel sounds are heard. EXTREMITIES:[ 2+ peripheral pulses with no evidence of peripheral edema and no calf tenderness noted]. NEUROLOGIC EXAMINATION: Patient is awake, alert and oriented x3. Assessment: Paroxysmal atrial fibrillation Gallstone Ileus status post surgical intervention hypertension COPD Plan: Continue patient on Eliquis 5 mg bid and Lopressor 25 mg bid patient is cleared from cardiology for discharge home and may follow-up in the office in one to 2 weeks. Nurse practitioner note has been reviewed, I agree with documented findings and plan of care. Patient was seen and examined.09/09 Objective - Vital Signs Vital signs: Vital Signs Temp 97 F L 09/10/22 08:00 Pulse 76 09/10/22 08:00 Resp 16 09/10/22 08:00 BP 151/68 09/10/22 08:00 Pulse Ox 96 09/10/22 08:00 FiO2 21 09/05/22 08:55 Intake & Output 09/09/22 09/10/22 09/10/22 18:59 06:59 18:59 Intake Total 200 Output Total 200 Balance 0 Weight 50.9 kg Intake: Oral 200 Output: Stool 200 Other: Voiding Method Bedside Commode # Voids 3 2 1 # Bowel Movements 4 1 - Labs CBC & Chem 7: 09/10/22 07:23 09/10/22 07:23 Labs: Abnormal Lab Results - Last 24 Hours (Table) 09/10/22 09/10/22 Range/Units : 07:23 Hgb 11.3 L (11.4-16.0) gm/dL Potassium 3.2 L (3.5-5.1) mmol/L Creatinine 0.39 L (0.52-1.04) mg/dL Calcium 7.7 L (8.4-10.2) mg/dL
== END 2022-09-10 16:17 | disposition home or self-care (01) | DRG 345 ==
LOC: EC 09:22 → 4SSUR 12:32 → 3SCARD 09-07 14:27
PROVIDERS: ADMIT Internal Medicine; ATTEND Internal Medicine
PROC: 0D9670Z Drainage of Stomach with Drainage Device, Via Natural or Artificial Opening (ICD-10-PCS; 2022-08-30)
PROC: 0DBU0ZZ Excision of Omentum, Open Approach (ICD-10-PCS; principal; 2022-09-03 09:00)
PROC: 0DC80ZZ Extirpation of Matter from Small Intestine, Open Approach (ICD-10-PCS; principal; 2022-09-03 09:00)
DX: K56.3 Gallstone ileus (principal); E87.0 Hyperosmolality and hypernatremia; N17.9 Acute kidney failure, unspecified; E87.20 Acidosis, unspecified; I27.20 Pulmonary hypertension, unspecified; I48.0 Paroxysmal atrial fibrillation; K56.50 Intestinal adhesions [bands], unspecified as to partial versus complete obstruction; J44.9 Chronic obstructive pulmonary disease, unspecified; K80.20 Calculus of gallbladder without cholecystitis without obstruction; E86.0 Dehydration; E87.6 Hypokalemia; I10 Essential (primary) hypertension; M19.90 Unspecified osteoarthritis, unspecified site; K21.9 Gastro-esophageal reflux disease without esophagitis; G25.81 Restless legs syndrome; F41.9 Anxiety disorder, unspecified; F32.A Depression, unspecified; R32 Unspecified urinary incontinence; Z79.82 Long term (current) use of aspirin; Z79.899 Other long term (current) drug therapy; Z87.891 Personal history of nicotine dependence; Z86.011 Personal history of benign neoplasm of the brain
CPT/HCPCS: 36415; 43753; 71045; 74018; 74176; 76705; 80048; 80053; 82150; 83605; 83690; 83735; 84443; 84484; 85025; 85027; 85610; 86850; 86900; 86901; 87040; 88300; 88305; 93005; 93306; 94760; 96361; 96365; 96375; 96376; 99285

== ENCOUNTER → 2022-10-10 | Outpatient (CLI) | payer MEDICARE ==
--- NOTE | 2022-10-10 14:53 | MM ---
Reason for Exam: Follow-up at short interval from prior study. Last screening mammogram was performed 6 month(s) ago. Patient History: Menarche at age 11. First Full-Term at age 17. Left ovary removed at age 53. Right ovary removed at age 53. Hysterectomy at age 53. Postmenopausal. Estrogen for 16 years from age 53 until age 69. Hormonal Contraceptives, from age 19 until age 29. 2002, Bilateral Benign Core Biopsy. 1989, Benign Core Biopsy on the right side. 04/10/2007, Excisional Biopsy on the Right side. Risk Values: Enedelia 5 year model risk: 1.9%. NCI Lifetime model risk: 3.3%. Prior Study Comparison: 02/08/2021 Bilateral Screening Mammogram, [facility]. 04/03/2022 Bilateral MG 3D screening mammo w/cad, [facility]. 04/11/2022 Left MG 3D work up w/cad , [facility]. Tissue Density: Left: The breast tissue is heterogeneously dense. This may lower the sensitivity of mammography. Findings: Analyzed By CAD. Increasing grouped calcifications that 5.1 cm from the nipple in the left breast middle depth slightly medial. Overall Assessment: Suspicious, BI-RAD 4 Management: Stereotactic Core Biopsy of the left breast. Results were given to the patient verbally at the time of exam. Patient should continue monthly self-breast exams. A clinical breast exam by your physician is recommended on an annual basis. This exam should not preclude additional follow-up of suspicious palpable abnormalities. Note on Enedelia scores and lifetime risk: 1. A Enedelia score greater than 3% is considered moderate risk. If this is the case, consider specialist referral to assess eligibility for a risk reducing agent. 2. If overall lifetime risk for the development of breast cancer is 20% or higher, the patient may qualify for future screening with alternating mammogram and breast MRI. Electronically signed and approved by: Kulwinder Mathew DO
== END | disposition home or self-care (01) ==
LOC: RADMAMWWP 14:05
PROVIDERS: ATTEND Family Medicine
DX: R92.8 Other abnormal and inconclusive findings on diagnostic imaging of breast (principal); Z78.0 Asymptomatic menopausal state
CPT/HCPCS: 77065; G0279; 77061

== ENCOUNTER → 2022-10-24 | Day surgery (SDC) | payer MEDICARE ==
[2022-10-24 07:51] VITALS: RESP 16
[2022-10-24 08:52] VITALS: BP 158/82; PULSE 70; TEMP 97.5
--- NOTE | 2022-10-31 10:14 | MM ---
Risk Values: Enedelia 5 year model risk: 1.9%. NCI Lifetime model risk: 3.3%. Prior Study Comparison: 04/03/2022 Bilateral MG 3D screening mammo w/cad, [facility]. 04/11/2022 Left MG 3D work up w/cad LT, [facility]. 10/10/2022 Left MG 3D diag mammo w/cad LT, [facility]. Pathology Description: Approach: Lateral to Medial Needle Type: Eviva Cores: 7 Skin Nicks: 1 Gauge: 9 The procedure of stereotactic guided core biopsy was explained to the patient. Benefits, alternatives, and risks were discussed. An informed consent was then obtained. The shortness pathway for biopsy was chosen. Shortness pathway was lateral approach. A vacuum assisted biopsy gun was used to obtain multiple core samples. The patient tolerated the procedure well without any immediate complication. The patient was kept in the radiology department for short stay after the procedure and then discharged home in stable condition. Targeted calcifications are identified in specimen mammogram. Post biopsy mammogram shows the clip to have migrated lateral 3 cm and inferiorly 1 cm relative to the targeted area of concern on the preprocedure images. No obvious remaining calcifications at the biopsy site. Impression: SUCCESSFUL, UNCOMPLICATED STEREOTACTIC GUIDED CORE BIOPSY OF AREA OF CONCERN IN THE LEFT BREAST. Pathology Results: Result: Benign, Fibroadenomatoid hyperplasia. LEFT BREAST, STEREOTACTIC NEEDLE CORE BIOPSY: Fibroadenomatoid hyperplasia and sclerosing adenosis with calcifications in a background of fibrocystic changes. Overall Assessment: Benign Management: Diagnostic Mammogram of the left breast in 6 months. Electronically signed and approved by: John Paul Ruiz D.O.
== END ==
LOC: RADMAMWWP 09:37
PROVIDERS: ATTEND Family Medicine
DX: N60.22 Fibroadenosis of left breast (principal); N60.12 Diffuse cystic mastopathy of left breast
CPT/HCPCS: 88305; 19081; A4648; J2001